=== PATIENT | female | born 1960 | race Caucasian/White ===

== ENCOUNTER 2020-06-15 15:14 | Emergency (ER) | payer BC, SELFPAY ==
[2020-06-15 15:15] VITALS: BP 159/83; PULSE 61; RESP 17; TEMP 36.7; O2SAT 97
[2020-06-15] MEDS: ALPRAZolam (*CRX) 0.5 MG TABLET PO (16:08)
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
[2020-06-15 16:20] VITALS: RESP 16
== END 2020-06-15 16:20 | disposition home or self-care (01) ==
PROVIDERS: Emergency Provider Emergency Medicine
DX: F41.0 Panic disorder [episodic paroxysmal anxiety] (principal)
CPT/HCPCS: 99283; A9270

== ENCOUNTER 2023-05-29 05:00 | Emergency (ER) | payer BC, SELFPAY ==
--- NOTE | ~2023-05-29 | XR_ITS ---
Portable chest x-ray Comparison: None Clinical History: Shortness of breath Findings: Probable minimal bibasilar pulmonary edema. Cardiomediastinal silhouette is prominent. Kev juanito and soft tissues are unremarkable. Impression: Suspected minimal bibasilar pulmonary edema. Reviewed, dictated and finalized at [facility]. Impression: Suspected minimal bibasilar pulmonary edema.
[2023-05-29 05:06] VITALS: BP 176/78; PULSE 65; RESP 20; TEMP 35.9; O2SAT 97
--- NOTE | 2023-05-29 05:19 | ED.ANXIETY ---
HPI - Anxiety General Chief Complaint: Anxiety Stated Complaint: Chest Pain/SOB Source: patient Mode of arrival: ambulatory Limitations: no limitations History of Present Illness HPI narrative: 63-year-old female with a history anxiety / depression, panic attacks, COPD on home oxygen presents to our ER with -- chest pain off and on for the past 1 month. She has been seen at 2 other hospitals for chest pain and has had negative cardiac enzymes. She has had a stress test a long time ago. He complains of left-sided pain. -- Shortness of breath. She has a history of and has chronic cough and shortness of breath and is on supplemental oxygen 3 liters/minute continuously. -- Anxiety mediated she was on Xanax in the past which was discontinued after she recently was diagnosed with -- low back pain for which she was placed on hydrocodone. -- diaphoresis complaint: anxiety and shortness of breath Onset (ago): month(s) ( Her symptoms have been present for 1 month.) Symptoms: dyspnea Severity: moderate Quality: constant Place: home History of similar episodes: Yes Provoking factors: emotional stress Relieving factors: nothing Exacerbating factors: nothing Associated symptoms: denies other symptoms, shortness of breath and diaphoresis Related Data Allergies Allergy/AdvReac Type Severity Reaction Status Date / Time Sulfa (Sulfonamide Allergy Other Verified 05/29/23 05:16 Antibiotics) Review of Systems Review of Systems: All systems reviewed & are unremarkable except as noted in HPI and below Constitutional: Constitutional: Reports as per HPI and Reports no additional constitutional complaints Eyes: Eyes: Reports as per HPI and Reports no additional eye complaints ENT: Reports system reviewed and no additional complaints, except as documented Cardiovascular: Cardiovascular: Reports as per HPI and Reports chest pain Respiratory: Respiratory: Reports as per HPI, Reports cough and Reports dyspnea Gastrointestinal: Gastrointestinal: Reports as per HPI Genitourinary: Genitourinary: Reports no additional female genitourinary complaints Musculoskeletal: Musculoskeletal: Reports no additional musculoskeletal complaints and Reports back pain Integumentary/Breasts: Skin/Breast: Reports system reviewed and no additional complaints, except as docu and Reports as per HPI Neurologic: Reports system reviewed and no additional complaints, except as documented and Reports as per HPI Psychiatric: Psychiatric: Reports no additional psychiatric complaints, Reports anxiety and Reports depression Endocrine: Endocrine: Reports no additional endocrine complaints and Reports as per HPI Hematologic/Lymphatic: Hematologic/Lymphatic: Reports no additional hematologic/lymphatic complaints and Reports as per HPI Allergic/Immunologic: Allergic/Immunologic: Reports no additional allergic/immunologic complaints and Reports as per HPI [facility] Past Medical History Medical History (Updated 05/29/23 @ 06:56 by Supa Polo MD) Anxiety Chronic low back pain COPD (chronic obstructive pulmonary disease) Depression Panic attacks Social History Social History (Updated 05/29/23 @ 05:35 by Supa Polo MD) Social History: smoker Smoking packs per day: 0.5 Smoking cigarettes per day: 10.0 Years smoked: 50 Smoking pack-years: 25.00 Smoking status: Current every day smoker Tobacco type: cigarettes Exam Const: General: ill appearing Nutritional Appearance: well nourished and obese Orientation/consciousness: patient oriented x3 Limitations: no limitations HENMT: Head: normal to inspection Ears: external ears normal Face/Nose/Sinus: Normal external nose present Face and sinus: normal facial exam Mouth: Yes Normal oral and palatal mucosa present Throat: posterior oropharynx normal Eyes: Conjunctivae: conjunctivae normal Pupils: Equal, round and reactive pupils present EOM: EOMs intact bilaterally Direct Ophthalmos
--- NOTE | 2023-05-29 05:30 | ECG_ITS ---
Measurements Intervals [place] Rate: 62 P: 76 MS: 121 QRS: 79 QRSD: 91 T: 64 QT: 412 QTc: 420 Interpretive Statements SINUS RHYTHM BORDERLINE R WAVE PROGRESSION, ANTERIOR LEADS INFERIOR INFARCT, AGE INDETERMINATE BASELINE ARTIFACT- I, II, III, AVR, AVL, AVF, V3-V6 ABNORMAL ECG NO PREVIOUS ECG AVAILABLE FOR COMPARISON Electronically Signed On 05-29-2023 8:35:43 CDT by Brian Santiago D.O.
[2023-05-29] MEDS: ASPIRIN 81 MG CHEWABLE TABLET 324 MG PO (05:39)
[2023-05-29] MEDS: ALPRAZolam (*CRX) 0.5 MG TABLET PO (05:41)
[2023-05-29 05:50] LABS: Basophils Absolute Auto 0.05 K/mm3 (0.00-0.10); Basophils Percent Auto 0.3 % (0.0-1.0); Eosinophils Absolute Auto 0.05 K/mm3 (0.02-0.50); Eosinophils Percent Auto 0.3 % (1.0-6.0); Hematocrit 41.2 % (35.0-49.0); Hemoglobin 12.9 g/dL (12.0-15.0); Immature Granulocyte Absolute 0.13 K/mm3 (0.00-0.00); Immature Granulocyte Percent A 0.7 % (0.0-0.0); Lymphocytes Absolute Auto 1.01 K/mm3 (1.10-4.50); Lymphocytes Percent Auto 5.1 % (18.0-42.0); Mean Corpuscular HGB Conc 31.3 g/dL (32.0-36.0); Mean Corpuscular Hemoglobin 32.5 pg (27.0-31.0); Mean Corpuscular Volume 103.8 fL (78.0-102.0); Mean Platelet Volume 10.1 fl (9.2-11.8); Monocytes Absolute Auto 1.04 K/mm3 (0.10-0.90); Monocytes Percent Auto 5.3 % (2.0-11.0); Neutrophils Absolute Auto 17.4 K/mm3 (1.7-7.2); Neutrophils Percent Auto 88.3 % (50.0-70.0); Platelet Count Result 337 K/mm3 (150-420); Red Blood Count 3.97 M/mm3 (4.20-5.40); Red Cell Distribution Width 13.1 % (11.6-14.4); White Blood Count 19.7 K/mm3 (4.8-10.8)
[2023-05-29 05:58] LABS: Prothrombin Time 10.7 Seconds (9.50-12.10)
[2023-05-29 06:04] LABS: Lactic Acid Reflex 0.8 mmol/L (0.4-2.0)
[2023-05-29 06:07] LABS: Alanine Aminotransferase 22 U/L (14-59); Albumin Level 2.8 g/dL (3.4-5.0); Alkaline Phosphatase 86 U/L (46-116); Anion Gap 4 mmol/L (8-16); Aspartate Amino Transferase 21 U/L (15-37); Bilirubin,Total 0.3 mg/dL (0.00-1.00); Blood Urea Nitrogen 24 mg/dL (7-18); Calcium 9.5 mg/dL (8.5-10.1); Carbon Dioxide 43 mmol/L (21-32); Chloride 95 mmol/L (98-108); Estimated CRCL calculation 78 ml/min; Estimated Glomerular Filt Rate > 60; Glucose 166 mg/dL (70-99); Lipase 27 U/L (16-77); NT Pro B Type Natriuretic Pept 1662 pg/mL (0-125); Osmolality Calculated 302 mOsm/kg (285-295); Potassium 3.6 mmol/L (3.5-5.1); Sodium 142 mmol/L (136-145); Total Protein 6.9 g/dL (6.4-8.2); Troponin I 20.8 ng/L (0.00-60.4)
[2023-05-29 06:23] LABS: Influenza A QL RT-PCR Negative (Negative); Influenza B QL RT-PCR Negative (Negative); SARS-CoV-2 RNA PCR Negative (Negative)
[2023-05-29 06:38] LABS: RSV RNA, RT-PCR Negative (Negative)
[2023-05-29 07:01] LABS: Appearance Urine Clear (Clear); Bilirubin Urine Negative (Negative); Blood Urine Negative (Negative); Color Urine Light Yellow (Yellow); Glucose Urine UA Negative (Negative); Ketones Urine Negative (Negative); Leukocyte Esterase Ur Negative LEU/UL (Negative); Nitrate Urine Negative (Negative); Protein Urine 1+ (Negative); Urobilinogen Urine 0.2 mg/dL (0.2-1.0); pH Urine 6.5 (5.0-8.0)
[2023-05-29 07:13] LABS: Add Urine Microscopic? YES; Bacteria Urine Trace /hpf; Budding Yeast Urine Present /hpf; RBC Urine 0-2 /hpf (0-2); Squamous Epithelial Cell Urine Moderate /hpf (Few); WBC Urine 0-3 /hpf (0-3)
--- NOTE | 2023-05-29 07:16 | PC.NURSE ---
ERP aware of cxr and high bnp, no new orders, still up for discharge.
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
== END 2023-05-29 07:55 | disposition home or self-care (01) ==
PROVIDERS: Emergency Provider Internal Medicine Critical Care Medicine; PCP Internal Medicine
DX: J44.9 Chronic obstructive pulmonary disease, unspecified (principal); I50.9 Heart failure, unspecified; F41.0 Panic disorder [episodic paroxysmal anxiety]; R07.9 Chest pain, unspecified; F17.210 Nicotine dependence, cigarettes, uncomplicated; Z99.81 Dependence on supplemental oxygen; Z79.899 Other long term (current) drug therapy; Z20.822 Contact with and (suspected) exposure to COVID-19
CPT/HCPCS: 36415; 71045; 80053; 81001; 83605; 83690; 83880; 84484; 85025; 85610; 87637; 93005; 99284; A9270

== ENCOUNTER 2024-12-31 18:14 | Emergency (ER) | payer BC, SELFPAY ==
[2024-12-31] VITALS (40 sets, daily range): BP systolic 117–179; BP diastolic 57–111; PULSE 73–89; RESP 14–30; TEMP 35.9–36.4; O2SAT 91–100
--- NOTE | ~2024-12-31 | XR_ITS ---
XR chest 1V portable Ordering provider: Johnny Sagastume MD History: 64 years Female with . altered mental status . Comparison: None. FINDINGS: MEDIASTINUM: The cardiac silhouette is slightly enlarged. Congestive luis f. LUNGS: No effusions or pneumothorax. Bilateral interstitial thickening suggestive of pulmonary edema. Superimposed pneumonia is not exclud ed. Opacification in the left lower lobe is seen suggestive of pneumonia. OTHER: No free air under the diaphragm. IMPRESSION: Cardiomegaly with cardiac decompensation and pulmonary edema. Bilateral pneumonitis with left lower lobe pneumonia is highly suggestive. Reviewed, dictated and finalized at location A.
--- OUTSIDE RECORDS SUMMARY | 2024-12-31 18:16 | XMS_ITS | Clinical Summary ---
Author Organization [facility] Address [address] [address] Phone Care Team Providers Care Communication Specialist Name Role Phone Unavailable Primary Care Provider Unavailabl e Allergies Active Allergy Reactions Criticality Noted Date Comments Sitagliptin Diarrhea 06/12/2018 Metformin Diarrhea 03/31/2017 Sulfa Antibiotics Unknown Medications Aspirin 81 MG Tablet Take 81 mg by mouth every morning. Active Blood Glucose Monitoring Suppl Device Test four times daily 1 Each 05/15/20 20 Active Lancets Misc Test four times daily 400 Lancet 3 05/15/20 20 Active Glucose Blood Strip Test four times daily 400 Strip 3 08/30/20 21 Active Narcan 4 MG/0.1ML Liquid 09/08/20 21 Active nitroGLYCERIN (NITROSTAT) 0.4 MG SL Tablet 1 Tablet by Sublingual route every 5 minutes as needed for Chest pain. 50 Tablet 03/27/20 22 Active naproxen (NAPROSYN) 500 MG Tablet Take 1 Tablet by mouth 2 times daily (with meals). 14 Tablet 08/02/20 22 Active naproxen (NAPROSYN) 500 MG Tablet Take 1 Tablet by mouth 2 times daily as needed for Mild or more severe pain. 20 Tablet 11/30/19 23 Active Glucose Blood (OneTouch Verio) Strip 4 times a day 120 Each 3 01/22/20 23 Active atorvastatin (LIPITOR) 80 MG Tablet Take 1 tablet by mouth once daily 90 Tablet 3 05/09/20 23 Active Insulin Pen Needle (BD Pen Needle Rose Marie U/F) 32G X 4 MM MiscIndications :Diabetes mellitus due to underlying condition with stage 1 chronic kidney disease, unspecified whether oil heaterman insulin use (HCC) 1 Pen Needle by Subcutaneous route 4 times daily. 400 Each 3 06/09/20 23 Active albuterol 108 (90 Base) MCG/ACT Aerosol Solution take 2 Puffs by inhalation every 4 hours as needed for Wheezing. 8.5 g 6 07/22/20 23 Active NovoLIN N FlexPen 100 UNIT/ML Suspension Pen-injector INJECT 24 UNITS IN THE MORNING AND 20 UNITS IN THE EVENING 45 mL 08/07/20 23 Active Insulin Pen Needle (Pen [place]) 29G X 12MM Misc 4 times a day E11.9 400 Each 3 08/08/20 23 Active gabapentin (NEURONTIN) 300 MG Capsule TAKE 1 CAPSULE BY MOUTH THREE TIMES DAILY 270 Capsule 11/03/19 24 Active tiZANidine (ZANAFLEX) 2 MG Tablet Take 1 Tablet by mouth 3 times daily. 90 Tablet 11/10/19 24 Active insulin aspart (NovoLOG FlexPen ReliOn) 100 UNIT/ML Solution Pen-injector INJECT 15 UNITS SUBCUTANEOUSLY, 10 UNITS AT LUNCH, AND 8 UNITS AT DINNER. ISF OF 1:20. IF >140 MG/DL. UP TO 50 UNITS A DAY 45 mL 06/24/20 24 Active NovoLIN N FlexPen 100 UNIT/ML Suspension Pen-injector INJECT 24 UNITS SUBCUTANEOUSLY IN THE MORNING AND 20 IN THE EVENING 30 mL 08/23/20 24 Active citalopram (CeleXA) 40 MG TabletIndicatio ns:Anxiety Take 1 tablet by mouth once daily 90 Tablet 09/01/20 24 Active carvedilol (COREG) 6.25 MG Tablet Take 1 tablet by mouth twice daily 60 Tablet 09/30/19 25 Active Active Problems Problem Noted Date Diagnosed Date COPD exacerbation 11/23/2021 Pneumonia 11/22/2021 Diarrhea 06/20/2020 Class 3 severe obesity due t o excess calories with serious comorbidity and body mass index (BMI) of 40.0 to 44.9 in adult 2019 Pain in both lower extremities 03/16/2018 Pain in left tibia 03/06/2018 Screening for colon cancer 11/28/2017 Screening for breast cancer 11/28/2017 Claudication of both lower extremities 6 Tobacco abuse 07/30/2016 CAD (coronary artery disease) Overview (09/17/2015): [place] 2001 DM (diabetes mellitus) HTN (hypertension) Depression IBS (irritable bowel syndrome) Overview (09/17/2015): DIARRHEA Hyperlipidemia Encounters Date Type Department Care Team Description 12/23[facility] [place] [address] [place] [id number] Travis Lr MD 11/30/2024 [facility] [place] [address] [place] [address] Travis Lr MD Medication Refill 10/31/2024 [facility] [place] [address] [place] [address] Travis Lr MD Medication Refill from Last 3 Months Immunizations Immunization Administration Dates Next Due Covid-19, Mrna, Lnp-s, PF, 1 00 mcg/0.5 mL Dose (Moderna) 07/18/2021,06/18/2021 Influenza Vaccine, Quadrivalent, PF 06/12/2018 Pneumococcal Vaccine Adult - 23 Valent 1 Pneumococcal Vaccine, Unspecified Formulation Tetanus Toxoid, Unspecified Formulation 09/22/19 11 Family History Medical History Relation Name Comments Congestive Heart Failure Father Rafa Valdez Coronary Artery Disease Father Rafa Valdez Heart Attack Father Rafa Valdez Heart Surgery Father Rafa Valdez Diabetes Half-Brother 1 No Known Problems Half-Brother 2 No Known Problems Half-Sister Rheumatoid Arthritis Maternal Grandmother Jane Valdez Congestive Heart Failure Mother Roselia Mauro Diabetes Mother Roselia Mauro Endometriosis Sister Elizabeth and myself ADD / ADHD Son Relation Name Status Comments Father Rafa Valdez Half-Brother 1 Alive Half-Brother 2 Alive Half-Sister Alive Maternal Grandmother Jane Valdez Mother Roselia Mauro Alive Sister Elizabeth and myself Son Alive Social History Tobacco Use Types Packs/Day Years Used Date Smoking Tobacco: Former Cigarettes 0 03/16/2017 - 04/29/2017 Smokeless Tobacco: Never Tobacco Cessation:Counseling Given: Yes Alcohol Use Standard Drinks/Week Comments No 0 (1 standard drink = 0.6 oz pur e alcohol) [facility] Utilities Answer Date Recorded In the past 12 months has th e electric, gas, oil, or water company threatened to shut off services in your home? No 11/08/2023 Social Connection and Isolation Panel [NHANES] A nswer Date Recorded In a typical week, how many times do you talk on the phone with family, friends, or neighbors? Twice a week 11/08/2023 How often do you get togethe r with friends or relatives? Once a week 11/08/2023 How often do you attend spiritism or presybeterian serv ices? Patient declined 11/08/2023 Do you belong to any clubs o r organizations such as spiritism groups, unions, fraternal or athletic groups, or school groups? No 11/08/2023 How often do you attend meet ings of the clubs or organizations you belong to? Patient declined 11/08/2023 Are you , , di vorced, , never , or living with a partner? 11/08/2023 AUDIT-C Answer Date Recorded Q1: How often do you have a drink containing alcohol? Never 11/08/2023 Q2: How many drinks containi ng alcohol do you have on a typical day when you are drinking? Patient does not drink Q3: How often do you have si x or more drinks on one occasion? Never 11/08/2023 Overall Financial Resource Strain (CARDIA) Answe r Date Recorded How hard is it for you to pa y for the very basics like food, housing, medical care, and heating? Somewhat hard 11/08/2023 PHQ-2 Answer Date Recorded Total Score - Questions 1-9 0 06/24 [facility] Questionnaire Answer Date Recorded Do you feel stress - tense, restless, nervous, or anxious, or unable to sleep at night because your mind is troubled all the time - these days? To some extent 11/08/2023 Exercise Vital Sign Answer Date Recorde d On average, how many days pe r week do you engage in moderate to strenuous exercise (like a brisk walk)? 2 days 11/08/2023 On average, how many minutes do you engage in exercise at this level? 20 min 11/08/2023 Hunger Vital Sign Answer Date Recorded Within the past 12 months, y ou worried that your food would run out before you got the money to buy more. Never true 11/08/19 24 Within the past 12 months, t he food you bought just didn't last and you didn't have money to get more. Never true 11/08/2023 PRAPARE - Transportation Answer Date Re corded In the past 12 months, has l ack of transportation kept you from medical appointments or from getting medications? No 10/23 In the past 12 months, has l ack of transportation kept you from meetings, work, or from getting things needed for daily living? No 11/08/2023 Housing Stability Vital Sign Answer Jameel e Recorded In the last 12 months, was t here a time when you were not able to pay the mortgage or rent on time? No 11/08/2023 In the last 12 months, how many places have you lived? 1 11/08/2023 In the last 12 months, was t here a time when you did not have a steady place to sleep or slept in a penitentiary (including now)? No 11/08/2023 Education Answer Date Recorded What is the highest level of school you have completed or the highest degree you have received? Some college, no degree 10/23/2022 Sexually Active Control Partners Comments Not Currently Abstinence Male Comments No Sex and Gender Information Value Date Recorded Sex Assigned at Not on file Legal Sex Female 11:03 PM CDT Gender Identity Not on file Sexual Orientation Not on file Last Filed Vital Signs Vital Sign Reading Time Taken Comments Blood Pressure 126/80 11/10/2023 2:30 PM [facility] Pulse 62 11/10/2023 2:30 PM [facility] Temperature 36.1 C (97 F) 11/10/2023 2:30 PM [facility] Respiratory Rate 16 07/22/2023 10:24 AM CDT Oxygen Saturation 96% 11/10/2023 2:30 PM [facility] Inhaled Oxygen Concentration - - Weight 108.9 kg (240 lb) 11/10/2023 2:30 PM [facility] Height 157.5 cm (5' 2 ) 11/10/2023 2:30 PM [facility] Body Mass Index 43.9 11/10/2023 2:30 PM [facility] Plan of Treatment Health Maintenance Due Date Last Done Comments Hepatitis C Virus (HCV) Screening 1961 TdaP Immunization 1961 Pap Smear 1982 Cervical Cancer Screening (CCS) 1991 HPV/Cotest 1991 Colonoscopy 2006 Colorectal Cancer Screening 2006 Cologuard 2011 Immunochemical Fecal Occult Blood 2011 Zoster Immunization (1 of 2) 2011 Mammogram 09/19/2017 09/19/2016 Respiratory Syncytial Virus (RSV) Immunization (Adult) (1 - Risk 60-74 years 1-dose series) 2021 Pneumococcal Immunization (50+ years) (2 of 2 - PCV) 03/13/2022 03/13/2021, 09/22/2011 Diabetes: Eye Exam 05/03/2022 05/03/2021, 01/07/2018 Diabetes: Hemoglobin A1c 07/24/2023 023, 05/13/2022, 11/23/2021, Additional history exists Diabetes: Foot Exam 10/24/2023 10/24/2022 SARS-COV-2 Immunization ( season) 2024 07/18/2021, 06/18/2021 Diabetes: Nephropathy Screening 11/10/2024 11/10/2023, 07/31/2022, 11/22/2021, Additional history exists Influenza Immunization (Season Ended) 2025 06/12/2018 Pneumococcal Immunization Combined Discontinued 03/13/2021, 09/22/2011 Lung Cancer Screening Discontinued 11/22/2021 Hepatitis B Immunization Aged Out No longer eligible based on patient's age to complete this topic Meningococcal Immunization (ACWY) Aged Out No longer eligible based on patient's age to complete this topic Rotavirus Immunization Aged Out No lo nger eligible based on patient's age to complete this topic Goals Goal Patient Goal Type Associated Problems Recent Progress Patient-Stated? Author Transportation Transportation On track(07/31 1:09 PM [facility]) No Carole Abel LSW Note: Goal: Patient to obtain access to all needed medical services Anticipated Completion Date: In the next 3 months Patient's Preferred Goal: Standard Challenges/Barriers: Lack of knowledge of local resources Readiness to Change: Thinking about making a change Notify Care Team if: You have any issues completing goals outlined below Short Term Goals: ANA URRUTIA to mail out information about [facility] transportation services \ Phone call to schedule in [facility] trips within 24 hours out of [facility] call within 72 hours. Medical Devices Implanted Type Area Buckle Wire Inserter Device Identifier Shelf Expiration Date Model / Serial / Lot Angioseal Vip 6fr - [id number] Implanted:Qty: 1 on 09/11/2016 by Eriberto Hoffman MD at [facility] IMPLANT Right: Groin ST SANDRA / ATRIAL FIB 04/21/2017 [id number] / / [id number] Cast Covered Stent [id number] Implanted:Qty: 1 on 09/11/2016 by Eriberto Hoffman MD at [facility] Aorta Brainscape 05/14/2019 [id number] / [id number] / NA Procedures Procedure Name Priority Date/Time Associated Diagnosis Comments CMP (COMPREHENSIVE METABOLIC PANEL) Routine 11/10/2023 2:58 PM [facility] Type 2 diabetes mellitus with other specified complication, with long-term current use of insulin (HCC) Pure hypercholesterolemia Primary hypertension POCT GLYCOSYLATED HEMOGLOBIN Routine 01/21/2023 2:14 PM CDT Type 2 diabetes mellitus with other specified complication, with long-term current use of insulin (HCC) CT CHEST W/O CONTRAST STAT 11/22/2021 1:34 PM [facility] HM DILATED EYE EXAM 05/03/2021 1 2:00 AM CDT MIKEY SCREENING BILATERAL DIGITAL W CAD Routine 09/19/2016 10:21 AM [facility] Type 2 diabetes mellitus without complication, without long-term current use of insulin (<HCC>) Coronary artery disease involving [place] heart with angina pectoris, unspecified vessel or lesion type (<HCC>) from Last 3 Months or Most Recently Relevant to Health Maintenance Results * (ABNORMAL) CMP (COMPREHENSIVE METABOLIC PANEL) (11/10/2023 2:58 PM [facility]) SODIUM 143 136 - 145 mmol/L 11/10/2023 4:28 PM [facility] POTASSIUM 4.8 3.5 - 5.1 mmol/L 11/10/2023 4:28 PM [facility] CHLORIDE 100 98 - 107 mmol/L 11/10/2023 4:28 PM [facility] CO2, VENOUS 35(H) 22 - 30 mmol/L 11/10/2023 4:28 PM [facility] ANION GAP 12.8 <18.0 mmol/L 11/10/2023 4:28 PM [facility] GLUCOSE 67(L) 70 - 99 mg/dL 11/10/2023 4:28 PM [facility] BUN 20 10 - 20 mg/dL 11/10/2023 4:28 PM [facility] CREATININE, BLOOD 0.80 0.60 - 1.00 mg/dL 11/10/2023 4:28 PM [facility] BUN/CREATININE RATIO 25(H) 12 - 20 ratio 11/10/2023 4:28 PM [facility] TOTAL PROTEIN 7.0 6.3 - 8.2 g/dL 11/10/2023 4:28 PM [facility] ALBUMIN 3.8 3.5 - 5.0 g/dL 11/10/2023 4:28 PM [facility] A/G RATIO 1.2 1.0 - 2.2 11/10/2023 4:28 PM [facility] CALCIUM 9.4 8.7 - 10.5 mg/dL 11/10/2023 4:28 PM [facility] T BILI 0.2 0.2 - 1.2 mg/dL 11/10/2023 4:28 PM [facility] SGOT (AST) 12 5 - 34 U/L 11/10/2023 4:28 PM [facility] SGPT (ALT) 9 0 - 55 U/L 11/10/2023 4:28 PM [facility] ALKALINE PHOSPHATASE 73 40 - 150 U/L 11/10/2023 4:28 PM [facility] IS THE PATIENT REQUIRED TO BE FASTING? No 11/10/2023 4:28 PM [facility] GFR, ESTIMATED >60 >=60 11/10/2023 4:28 PM [facility] Comment: Creatinine Clearance is the preferred criteria for selecting drug dose adjustments in renally impaired patients. The GFR is provided as additional pertinent clinical information. GFR is reported in mL/min/1.73 sq m. Calculation based on the Chronic Kidney Disease Epidemiology Collaboration (CKD- EPI) equation refit without adjustment for race. GFR, EST. >60 >=60 024 4:28 PM [facility] GFR, EST. NONAFRICAN >60 >=60 11/10/2023 4:28 PM [facility] Blood Venipuncture / Unknown 11/10/2023 2:58 PM [facility] 11/10/2023 2:58 PM [facility] us Travis Lr MD CHEMISTRY ORDERABLES Final Re sult [facility] [address] [place] [address] * (ABNORMAL) POCT GLYCOSYLATED HEMOGLOBIN (01/21/2023 2:14 PM CDT) HGB-A1C 6.8(A) 4 - 6 % Blood 01/21/2023 2:14 PM CDT us Cassandra Holt MD POINT OF CARE TESTING (MANUAL) F inal Result * CT CHEST W/O CONTRAST (11/22/2021 1:34 PM [facility]) Anatomical Region Laterality Modality Chest N/A Computed Tomogra phy 11/22/2021 1:50 PM [facility] Impressions 11/22/2021 1:53 PM [facility] IMPRESSION: 1. No acute findings are identified in the chest. 2. No pulmonary edema. 3. Diffuse bronchial wall thickening, likely sequelae of chronic bronchitis in a smoker. 4. Mild centrilobular and paraseptal emphysema in the upper lungs. 5. There is a 5 mm solid nodule in the left upper lobe. Follow-up is recommended with chest CT in 12 months. Other smaller nodules are either calcified or partially calcified, and likely correspond to benign granulomas. 6. There are stents in the left anterior descending and left circumflex coronary arteries. 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 7. Other findings as described above. Narrative 11/22/2021 1:53 PM [facility] EXAM DESCRIPTION: CT CHEST W/O CONTRAST REASON FOR STUDY: Shortness of breath since this morning. Intermittent chest pain. Smoker. TECHNIQUE: CT scan of the chest performed without intravenous contrast using helical scanning technique. Reconstructed coronal and sagittal MPR images reviewed. All images stored on PACS. Automated exposure control was used as a dose optimization technique for this examination. COMPARISON: No previous chest CT is available for comparison. FINDINGS: The sensitivity for detection of solid visceral lesions is diminished without the use of intravenous contrast. LUNGS: Mild paraseptal emphysema and centrilobular emphysema in the upper lungs. There is no focal consolidation. Minimal areas of peripheral subsegmental atelectasis/scarring in the lung bases. Scattered calcified granulomas. There is a small solid nodule in the periphery of the left upper lobe on axial image 37, measuring 5 mm. Other tiny lung nodules appear at least partially calcified, and no other noncalcified nodules are definitely seen. There is no interlobular septal thickening to suggest edema. The airways are patent and normal in caliber. There is diffuse bronchial wall thickening and mild patchy mucous plugging, likely representing sequelae of chronic bronchitis in a smoker. PLEURA: There is no pleural effusion or pneumothorax. MEDIASTINUM/BROOKLYNN: No lymphadenopathy or masses. HEART: The heart size is normal. There are calcified plaques in the coronary arteries, and stents are identified in the left anterior descending and left circumflex coronary arteries. 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 No pericardial thickening or effusion. VASCULATURE: The thoracic aorta is diffusely atherosclerotic, but normal in caliber. The pulmonary arteries have normal caliber. AXILLA: No adenopathy. CHEST WALL: No masses. No subcutaneous air. HARDWARE/LINES/TUBES: None. UPPER ABDOMEN: Limited views of the liver, spleen, pancreas, and kidneys are unremarkable. There is a low-attenuation nodule in the right adrenal gland that measures approximately 16 mm. This is indeterminate, but stability compared to CT of the abdomen and pelvis from 01/25/2019 is most suggestive of a benign adenoma. MUSCULOSKELETAL: Examination of bone windows demonstrates no suspicious lytic or blastic lesions. Diffuse idiopathic skeletal hyperostosis of the lower thoracic spine. OTHER: No other significant abnormality. THIS IS AN ELECTRONICALLY VERIFIED FINAL REPORT 11/22/2021 1:50 PM - Electronically signed by Per Seymour M.D. RL: HENRY Report ID: [id number] Reading Location: [place] [address] Procedure Note Per Seymour MD - 11/22/2021 EXAM DESCRIPTION: CT CHEST W/O CONTRAST REASON FOR STUDY: Shortness of breath since this morning. Intermittent chest pain. Smoker. TECHNIQUE: CT scan of the chest performed without intravenous contrast using helical scanning technique. Reconstructed coronal and sagittal MPR images reviewed. All images stored on PACS. Automated exposure control was used as a dose optimization technique for this examination. COMPARISON: No previous chest CT is available for comparison. FINDINGS: The sensitivity for detection of solid visceral lesions is diminished without the use of intravenous contrast. LUNGS: Mild paraseptal emphysema and centrilobular emphysema in the upper lungs. There is no focal consolidation. Minimal areas of peripheral subsegmental atelectasis/scarring in the lung bases. Scattered calcified granulomas. There is a small solid nodule in the periphery of the left upper lobe on axial image 37, measuring 5 mm. Other tiny lung nodules appear at least partially calcified, and no other noncalcified nodules are definitely seen. There is no interlobular septal thickening to suggest edema. The airways are patent and normal in caliber. There is diffuse bronchial wall thickening and mild patchy mucous plugging, likely representing sequelae of chronic bronchitis in a smoker. PLEURA: There is no pleural effusion or pneumothorax. MEDIASTINUM/BROOKLYNN: No lymphadenopathy or masses. HEART: The heart size is normal. There are calcified plaques in the coronary arteries, and stents are identified in the left anterior descending and left circumflex coronary arteries. 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 No pericardial thickening or effusion. VASCULATURE: The thoracic aorta is diffusely atherosclerotic, but normal in caliber. The pulmonary arteries have normal caliber. AXILLA: No adenopathy. CHEST WALL: No masses. No subcutaneous air. HARDWARE/LINES/TUBES: None. UPPER ABDOMEN: Limited views of the liver, spleen, pancreas, and kidneys are unremarkable. There is a low-attenuation nodule in the right adrenal gland that measures approximately 16 mm. This is indeterminate, but stability compared to CT of the abdomen and pelvis from 01/25/2019 is most suggestive of a benign adenoma. MUSCULOSKELETAL: Examination of bone windows demonstrates no suspicious lytic or blastic lesions. Diffuse idiopathic skeletal hyperostosis of the lower thoracic spine. OTHER: No other significant abnormality. THIS IS AN ELECTRONICALLY VERIFIED FINAL REPORT 11/22/2021 1:50 PM - Electronically signed by Per Seymour M.D. RL: HENRY Report ID: [id number] Reading Location: [place] [address] IMPRESSION: 1. No acute findings are identified in the chest. 2. No pulmonary edema. 3. Diffuse bronchial wall thickening, likely sequelae of chronic bronchitis in a smoker. 4. Mild centrilobular and paraseptal emphysema in the upper lungs. 5. There is a 5 mm solid nodule in the left upper lobe. Follow-up is recommended with chest CT in 12 months. Other smaller nodules are either calcified or partially calcified, and likely correspond to benign granulomas. 6. There are stents in the left anterior descending and left circumflex coronary arteries. 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 7. Other findings as described above. us Glenroy Maria MD IMG CT ORDERABLES Final Res ult * HM DILATED EYE EXAM (05/03/2021 12:00 AM CDT) 05/03/2021 us Not On File Provider PROCEDURE/MINOR SURGICAL OR DERABLES Final Result SCAN * MIKEY SCREENING BILATERAL DIGITAL W CAD (09/19/2016 10:21 AM [facility]) Anatomical Region Laterality Modality breast Bilateral Mammography 09/19/2016 9:54 AM [facility] Narrative 09/20/2016 7:21 AM [facility] - MIKEY SCREENING BILATERAL DIGITAL W CAD BILATERAL DIGITAL SCREENING MAMMOGRAM WITH CAD WITH MEDIOLATERAL OBLIQUE CRANIOCAUDAL: 09/19/2016 The study was acquired using digital technology and interpreted from soft copy. Current study was also evaluated with ICAD version 7.2. CLINICAL: Routine screening. Patient has no complaints. No personal history of cancer. No family history of breast cancer. COMPARISONS: Comparison is made to exam dated: 02/06/2011 [facility]. BREAST TISSUE:There are scattered fibroglandular densities in both breasts. FINDINGS: No significant masses, calcifications, or other findings are seen in either breast. There has been no significant interval change. IMPRESSION: BI-RAD 1 NEGATIVE There is no mammographic evidence of malignancy. A 1 year screening mammogram is recommended. The patient has been or will be contacted. The patient will be entered into a reminder system with a target due date of 1 year for her next screening exam. Electronically signed by: Andres hernández/laz:09/19/2016 14:59:04 Closing Manager: Elizabet CHINCHILLA(R)(M), [facility] letter sent: Normal Exam Reading location: [facility] BI-RADS: 1 Negative Procedure Note Andres Veronica MD - 09/20/2016 - MIKEY SCREENING BILATERAL DIGITAL W CAD BILATERAL DIGITAL SCREENING MAMMOGRAM WITH CAD WITH MEDIOLATERAL OBLIQUE CRANIOCAUDAL: 09/19/2016 The study was acquired using digital technology and interpreted from soft copy. Current study was also evaluated with ICAD version 7.2. CLINICAL: Routine screening. Patient has no complaints. No personal history of cancer. No family history of breast cancer. COMPARISONS: Comparison is made to exam dated: 02/06/2011 [facility]. BREAST TISSUE:There are scattered fibroglandular densities in both breasts. FINDINGS: No significant masses, calcifications, or other findings are seen in either breast. There has been no significant interval change. IMPRESSION: BI-RAD 1 NEGATIVE There is no mammographic evidence of malignancy. A 1 year screening mammogram is recommended. The patient has been or will be contacted. The patient will be entered into a reminder system with a target due date of 1 year for her next screening exam. Electronically signed by: Andres Veronica M.D. nh/penrad:09/19/2016 14:59:04 Closing Manager: Elizabet CHINCHILLA(Wyatt)(M), [facility] letter sent: Normal Exam Reading location: [facility] BI-RADS: 1 Negative us Travis Lr MD IMG MAMMO ORDERABLES Final Re sult from Last 3 Months or Most Recently Relevant to Health Maintenance Insurance [facility] Advance Directives Documents on File Type Date Recorded Patient Sap Basis Administrator Expl anation Power of Configuration Technician for Health Care 08/09/2021 4:16 PM POA-HC 08/09/21 Advance Care Planning Discussion 08/09/2021 4:15 PM ACP Discussion recor d 08/09/21 * Full Code (Latest Code Status on File) Date Activated Date Inactivated Comments 11/22/2021 2:22 PM 11/23/2021 5:14 PM CPR-Full Treat ment: FULL ARREST: Attempt Resuscitation/CPR wit intubation and mechanical ventilation. PRE-ARREST: Use entire range of life support measures to stabilize the patient.
--- OUTSIDE RECORDS SUMMARY | 2024-12-31 18:16 | XMS_ITS | Encounter Summary ---
Author Organization [facility] Address [address] [facility] [place] [address] Phone Care Team Providers Care Wireless Telegrapher Name Role Phone Travis Lr MD Primary Care Provider [phone] Cassandra Holt MD Unavailable Carole Abel FOREST ECONOMICS PROFESSOR Unavailable Unavailab le Reason for Visit * Reason Onset Date Comments Medication Refill 06/15/2023 Encounter Details Date Type Department Care Team (Late st Contact Info) Description 06/15/2023 Refill [facility] [address] [place] [address] Travis Lr MD #[address] [address] Medication Refill Social History Tobacco Use Types Packs/Day Years Used Date Smoking Tobacco: Every Day Cigarettes 1.5 48.5 Started: 06/20/1976 Smokeless Tobacco: Never Alcohol Use Standard Drinks/Week Comments No 0 (1 standard drink = 0.6 oz pur e alcohol) PHQ-2 Answer Date Recorded Total Score - Questions 1-9 0 04/23 Education Answer Date Recorded What is the highest level of school you have completed or the highest degree you have received? Some college, no degree 10/23/2022 Sexually Active Control Partners Comments Not Currently Male Comments No Sex and Gender Information Value Date Recorded Sex Assigned at Not on file Legal Sex Female 11:03 PM CDT Gender Identity Not on file Sexual Orientation Not on file COVID-19 Exposure Response Date Recorded In the last 10 days, have yo u been in contact with someone who was confirmed or suspected to have Coronavirus/COVID-19? No / Unsure 06/06/2023 1:23 PM CDT documented as of this encounter Miscellaneous Notes * Telephone Encounter - Amara Kilgore RN - 06/16/2023 9:40 AM CDT Images from the original note were not included. Sertraline HCl Dispensed Days Supply Quantity Provider Pharmacy SERTRALINE HCL 50 MG TABS 05/01/2023 30 30 Tablet [id number] ... Pt states she has NOT picked this up or taken any. She does NOT want to be on Zoloft. She said thiswas done when she was in the hospital 04/22/23. Pt would like to remain on the Citalopram. * Telephone Encounter - Shena Page RN - 06/15/2023 11:27 AM CDT SITUATION: Medication Management BACKGROUND: Patient calling to request refill for citalopram. Pharmacy verified. States was told by pharmacy that patient has been switched to zoloft. Patient is tearful and states prefers to stay on citalopram as this medication has been working well for patient for years. States the provider that suggested zoloft is not patient's PCP and does not know patient or patient's history. ASSESSMENT: N/A RECOMMENDATION: Patient requesting to continue on citalopram and is requesting refill when possible. documented in this encounter Plan of Treatment Not on file documented as of this encounter Visit Diagnoses Diagnosis Anxiety Anxiety state, unspecified documented in this encounter Additional Health Concerns Assessment Noted Time PHQ-9 Depression Total Score: 0 05/20/20 4:57 PM CDT documented as of this encounter Care Teams Wireless Telegrapher Relationship Specialty Start Date End Date Travis Lr [facility] [address] [place] [address] PCP - General Family Medicine 08/08/15 09/30/24 Cassandra Holt MD #2 [facility] [address] [place] [address] Consulting Physician Endocrinology 04/10/22 11/09/24 Carole Abel LSW [place] Machine Container Washer 06/19/23 08/26/23 documented as of this encounter
--- OUTSIDE RECORDS SUMMARY | 2024-12-31 18:16 | XMS_ITS | Encounter Summary ---
Author Organization [facility] Address [address] [place] [address] Phone Care Team Providers Care Glassworker Name Role Phone Travis Lr MD Primary Care Provider [phone] Cassandra Holt MD Unavailable Reason for Visit * Reason Comments Medication Refill Encounter Details Date Type Department Care Team (Late st Contact Info) Description 12/05/2023 [facility]ill [facility] [address] [place] [address] Travis Lr MD #[address] [address] Medication Refill Social History Tobacco Use Types Packs/Day Years Used Date Smoking Tobacco: Former Cigarettes 0 03/16/2017 - 04/29/2017 Smokeless Tobacco: Never Alcohol Use Standard Drinks/Week Comments No 0 (1 standard drink = 0.6 oz pur e alcohol) [facility] Utilities Answer Date Recorded In the past 12 months has [employer] electric, gas, oil, or water company threatened [...] week 11/08/2023 How often do you attend moravian or cheondoism serv ices? Patient declined 11/08/2023 Do you belong to any clubs o r organizations such as moravian groups, unions, fraternal or athletic groups, or [...] Total Score - Questions 1-9 0 06/24 [facility] - Occupational Stress Questionnaire Answer Date Recorded [...] place to sleep or slept in a prison (including now)? No 11/08/2023 Education Answer Date [...] on file Sexual Orientation Not on file documented as of this encounter Miscellaneous Notes * Telephone Encounter - Amara Kilgore RN - 12/05/2023 12:11 PM CDT Medication failed the protocol, provider to review and approve the medication order if appropriate. Requested Prescriptions Pending Prescriptions Disp Refills citalopram (CeleXA) 40 MG Tablet [Pharmacy Med Name: Citalopram Hydrobromide 40 MG Oral Tablet] 90 Tablet 1 Sig: Take 1 tablet by mouth once daily Citalopram (Celexa) (6 Month Refill Only) Protocol Failed - 12/05/2023 6:53 AM Failed - Has an encounter in the past 6 months with a depression, anxiety, adjustment disorder, OCD, or PTSD visit diagnosis Passed - Citalopram dose is less than or equal to 40mg / day Passed - Visit with relevant provider in past 6 months or upcoming 90 days Recent Visits Date Type Provider Dept 11/10/23 Office Visit Travis Lr MD [facility] 07/22/23 Office Visit Travis Lr MD [facility] Showing recent visits within past 182 days and meeting all other requirements Future Appointments Date Type Provider Dept 02/09/24 Appointment Travis Lr MD [facility] Showing future appointments within next 90 days and meeting all other requirements Passed - Patient has established therapy with Citalopram for at least 6 months documented in this encounter Plan of Treatment Not on file documented as of this encounter Goals Goal Patient Goal Type Associated Problems Recent Progress Patient-Stated? Author Transportation Transportation On track(07/31 1:09 PM MANAGEMENT DEVELOPMENT SPECIALIST) Carole Herrera LSW Note: Goal: Patient to obtain access to all needed medical services Anticipated Completion Date: In the next 3 months Patient's Preferred Goal: Standard Challenges/Barriers: Lack of knowledge of local resources Readiness to Change: Thinking about making a change Notify Care Team if: You have any issues completing goals outlined below Short Term Goals: SW CM to mail out information about [facility] Transit transportation services \ Phone call to schedule in [facility] trips within 24 hours out of [facility] call within 72 hours. documented as of this encounter Visit Diagnoses Diagnosis Anxiety Anxiety state, unspecified documented in this encounter Additional Health Concerns Assessment Noted Time PHQ-9 Depression Total Score: 0 07/22/20 23 10:21 AM CDT documented as of this encounter Care Teams Glassworker Relationship Specialty Start Date End Date Travis Lr MD #2 [facility] [address] [place] [address] PCP - General Family Medicine 08/08/15 09/30/24 Cassandra Holt MD #2 [facility] [address] [place] [address] Consulting Physician Endocrinology 04/10/22 11/09/24 documented as of this encounter
--- OUTSIDE RECORDS SUMMARY | 2024-12-31 18:16 | XMS_ITS | Encounter Summary ---
Author Organization [facility] Address [address] [place] [address] Phone Care Team Providers Care Wood Filler Name Role Phone Travis Lr MD Primary Care Provider [phone] Cassandra Holt MD Unavailable Carole Abel PHP PROGRAMMER Unavailable Unavailab le Reason for Visit * Reason Comments Medication Refill Encounter Details Date Type Department Care Team (Late st Contact Info) Description 02/13/2023 Refill [facility] [address] [place] [address] Travis Lr MD #[address] [address] Medication Refill Social History Tobacco Use Types Packs/Day Years Used Date Smoking Tobacco: Every Day Cigarettes 1.5 48.5 Started: 06/20/1976 Smokeless Tobacco: Never Alcohol Use Standard Drinks/Week Comments No 0 (1 standard drink = 0.6 oz pur e alcohol) PHQ-2 Answer Date Recorded Total Score - Questions 1-9 0 10/2022 Education Answer Date Recorded What is the [...] suspected to have Coronavirus/COVID-19? No / Unsure 01/21/2023 1:15 PM CDT documented as of this encounter Miscellaneous Notes * Telephone Encounter - Amara Kilgore RN - 02/13/2023 3:50 PM CDT Medication failed the protocol, provider to review and approve the medication order if appropriate. Requested Prescriptions Pending Prescriptions Disp Refills citalopram (CeleXA) 40 MG Tablet [Pharmacy Med Name: Citalopram Hydrobromide 40 MG Oral Tablet] 90 Tablet 1 Sig: Take 1 tablet by mouth once daily Citalopram (Celexa) (6 Month Refill Only) Protocol Failed - 02/13/2023 11:43 AM Failed - Has an encounter in the past 6 months with a depression, anxiety, adjustment disorder, OCD, or PTSD visit diagnosis Passed - Citalopram dose is less than or equal to 40mg / day Passed - Visit with relevant provider in past 6 months or upcoming 90 days Recent Visits Date Type Provider Dept 01/21/23 Office Visit Travis Lr MD [facility] 10/24/22 Office Visit Travis Lr MD [facility] Showing recent visits within past 182 days and meeting all other requirements Future Appointments Date Type Provider Dept 04/22/23 Appointment Travis Lr MD [facility] Showing future appointments within next 90 days and meeting all other requirements Passed - Patient has established therapy with Citalopram for at least 6 months Refused Prescriptions Disp Refills gabapentin (NEURONTIN) 300 MG Capsule [Pharmacy Med Name: Gabapentin 300 MG Oral Capsule] 270 Capsule 0 Sig: TAKE 1 CAPSULE BY MOUTH THREE TIMES DAILY Not Delegated - Anticonvulsants Excluding Benzodiazepines Protocol Failed - 02/13/2023 11:43 AM Failed - This refill cannot be delegated Passed - Visit with relevant provider in past 12 months or upcoming 90 days Recent Visits Date Type Provider Dept 01/21/23 Office Visit Travis Lr MD [facility] 10/24/22 Office Visit Travis Lr MD [facility] 07/30/22 Office Visit Travis Lr MD [facility] 07/24/22 Office Visit Travis Lr MD [facility] 04/04/22 Office Visit Travis Lr MD [facility] 03/05/22 [facility] Show[facility] recent visits within past 365 days and meeting all other requirements Future Appointments Date Type Provider Dept 04/22/23 Appointment Travis Lr MD [facility] Showing future appointments within next 90 days and meeting all other requirements * Telephone Encounter - Amara Kilgore RN - 02/13/2023 3:49 PM CDT Signed Yesterday (02/12/2023): gabapentin (NEURONTIN) 300 MG Capsule Sig: Take 1 Capsule by mouth 3 times daily. Disp: 270 Capsule ? Refills: 0 Signed by: Travis Lr MD documented in this encounter Plan of Treatment Not on file documented as of this encounter Visit Diagnoses Diagnosis Anxiety Anxiety state, unspecified documented in this encounter Additional Health Concerns Assessment Noted Time PHQ-9 Depression Total Score: 0 10/24/19 2:00 PM MANAGER GYN documented as of this encounter Care Teams Wood Filler Relationship Specialty Start Date End Date Travis Lr MD #[address] [facility] [address] [place] [address] PCP - General Family Medicine 08/08/15 09/30/24 Cassandra Holt MD #[address] [facility] [facility] [address] [place] [address] Consulting Physician Endocrinology 04/10/22 11/09/24 Carole Abel LSW [place] Microfiche Duplicator 06/19/23 08/26/23 documented as of this encounter
--- OUTSIDE RECORDS SUMMARY | 2024-12-31 18:16 | XMS_ITS | Encounter Summary ---
Author Organization [facility] Address [address] [place] [address] Phone Care Team Providers Care Internet Marketing Director Name Role Phone Cassandra Holt MD Unavailable Reason for Visit * Reason Comments Medication Refill Encounter Details Date Type Department Care Team (Late st Contact Info) Description 10/31/2024 Refill [facility] #[address] [place] [address] Travis Lr MD #[address] [address] Medication Refill Social History Tobacco Use Types Packs/Day Years Used Date Smoking Tobacco: Former Cigarettes 0 03/16/2017 - 04/29/2017 Smokeless Tobacco: Never Alcohol Use Standard Drinks/Week Comments No 0 (1 standard drink = 0.6 oz pur e alcohol) [facility] Utilities Answer Date Recorded In the past 12 months has th [employer] electric, gas, oil, or water company threatened [...] week 11/08/2023 How often do you attend taoism or holiness serv ices? Patient declined 11/08/2023 Do you belong to any clubs o r organizations such as taoism groups, unions, fraternal or athletic groups, or [...] Total Score - Questions 1-9 0 06/24 [facility]at ional [facility] - Occupational Stress Questionnaire Answer Date [...] place to sleep or slept in a m[facility]p (including now)? No 11/08/2023 Education Answer Date [...] on file documented as of this encounter Plan of Treatment Not on file documented as of this encounter Goals Goal Patient Goal Type Associated Problems Recent Progress Patient-Stated? Author Transportation Transportation On track(07/31 1:09 PM DE IONIZER OPERATOR) No Carole Abel LSW Note: Goal: Patient to obtain access to all needed medical services Anticipated Completion Date: In the next 3 months Patient's Preferred Goal: Standard Challenges/Barriers: Lack of knowledge of local resources Readiness to Change: Thinking about making a change Notify Care Team if: You have any issues completing goals outlined below Short Term Goals: [facility] to mail out information about [facility] Transit transportation services \ Phone call to schedule in [facility] trips within 24 hours out of [facility] call within 72 hours. documented as of this encounter Visit Diagnoses Not on filedocumented in this encounter Additional Health Concerns Assessment Noted Time PHQ-9 Depression Total Score: 0 07/22/20 23 10:21 AM CDT documented as of this encounter Care Teams Internet Marketing Director Relationship Specialty Start Date End Date Cassandra Holt MD #[address] [address] Consulting Physician Endocrinology 04/10/22 11/09/24 documented as of this encounter
--- OUTSIDE RECORDS SUMMARY | 2024-12-31 18:16 | XMS_ITS | Clinical Summary ---
Author Organization [facility] Address [address] [place] [address] Care Team Providers Care Mold Engraver Name Role Phone Mare Castano MD Primary Care Provider [phone] Allergies Active Allergy Reactions Criticality Noted Date Comments Sulfa (Sulfonamide Antibiotics) Rash Medium 02/20 Medications HYDROcodone-bassam taminophen (NORCO) 10-325 mg per tabletIndicatio ns:Pain Take 1 tablet by mouth every 8 (eight) hours as needed for pain Active gabapentin (NEURONTIN) 300 mg capsule Take 1 capsule (300 mg total) by mouth 3 (three) times a day Active TiZANidine (ZANAFLEX) 2 mg capsuleIndicati ons:Muscle Spasm Take 1 capsule (2 mg total) by mouth 3 (three) times a day as needed for muscle spasms Active ALPRAZolam (XANAX) 0.5 mg tablet Take 1 tablet (0.5 mg total) by mouth 3 (three) times a day as needed for anxiety Active citalopram (CeleXA) 40 mg tablet Take 1 tablet (40 mg total) by mouth daily Active aspirin 81 mg enteric coated tablet Take 1 tablet (81 mg total) by mouth daily Active atorvastatin (LIPITOR) 80 mg tablet Take 1 tablet (80 mg total) by mouth daily Active carvediloL (COREG) 12.5 mg tablet Take 1 tablet (12.5 mg total) by mouth 2 (two) times a day with meals 60 tablet 04/24/2023 Active losartan (COZAAR) 25 mg tablet Take 1 tablet (25 mg total) by mouth daily 30 tablet 04/24/2023 Active Active Problems Problem Noted Date Diagnosed Date Hypertensive urgency 04/23/2023 Chest pain 04/23/2023 Shortness of breath 04/23/2023 Ear pain, bilateral 04/23/2023 Sinus pain 04/23/2023 Congestive heart failure (CHF) 04/23/2023 COPD (chronic obstructive pulmonary disease) 10/2022 Class 3 obesity 04/23/2023 Tobacco use disorder 04/23/2023 Chronic respiratory failure with hypoxia 023 CAD (coronary artery disease) 03/04/2022 Overview (03/04/2022): ME 2002 Depression 03/04/2022 DM (diabetes mellitus) 03/04/2022 HTN (hypertension) 03/04/2022 Hyperlipidemia 03/04/2022 IBS (irritable bowel syndrome) 03/04/2022 Overview (03/04/2022): DIARRHEA COPD exacerbation 11/23/2021 Pneumonia 11/22/2021 Medical History Medical History Date Comments Diabetes mellitus (HCC) Hypertension COPD (chronic obstructive pulmonary disease) (HC C) Social History Tobacco Use Types Packs/Day Years Used Date Smoking Tobacco: Every Day Cigarettes 0.3 45 Tobacco Cessation:Ready to Q uit: Not Asked Social Connection and Isolation Panel [NHANES] A nswer Date Recorded In a typical week, how many times do you talk on the phone with family, friends, or neighbors? Three times a week 04/23/2023 How often do you get togethe r with friends or relatives? Once a week 04/23/2023 How often do you attend [facility] or confucianist services? Never 04/23/2023 Do you belong to any clubs o r organizations such as episcopalian groups, unions, fraternal or athletic groups, or school groups? No 04/23/2023 How often do you attend meet ings of the clubs or organizations you belong to? Never 04/23/2023 Are you , , di vorced, , never , or living with a partner? 04/23/2023 AUDIT-C Answer Date Recorded Q1: How often do you have a drink containing alcohol? Never 04/23/2023 Q2: How many drinks containi ng alcohol do you have on a typical day when you are drinking? Patient does not drink 08/02/202 3 Q3: How often do you have si x or more drinks on one occasion? Never 04/23/2023 Overall Financial Resource Strain (CARDIA) Answe r Date Recorded How hard is it for you to pa y for the very basics like food, housing, medical care, and heating? Not hard at all 04/23/2023 Hunger Vital Sign Answer Date Recorded Within the past 12 months, y ou worried that your food would run out before you got the money to buy more. Never true 04/23/20 23 Within the past 12 months, t he food you bought just didn't last and you didn't have money to get more. Never true 04/23/2023 PRAPARE - Transportation Answer Date Re corded In the past 12 months, has l ack of transportation kept you from medical appointments or from getting medications? No 10/2022 In the past 12 months, has l ack of transportation kept you from meetings, work, or from getting things needed for daily living? No 04/23/2023 Housing Stability Vital Sign Answer Jameel e Recorded In the last 12 months, was t here a time when you were not able to pay the mortgage or rent on time? No 04/23/2023 In the last 12 months, how many places have you lived? 1 04/23/2023 In the last 12 months, was t here a time when you did not have a steady place to sleep or slept in a mcfp (including now)? No 04/23/2023 Personal Safety Answer Date Recorded Have you ever been in or are you currently in a harmful physical or emotional relationship or is someone making you feel afraid or unsafe? Denies 04/23/2023 Education Answer Date Recorded What is the highest level of school you have completed or the highest degree you have received? High school graduate 04/23/2023 Comments Unknown Sex and Gender Information Value Date Recorded Sex Assigned at Not on file Legal Sex Female 6:16 PM CDT Gender Identity Not on file Sexual Orientation Not on file Obstetrics History Last Filed Vital Signs Vital Sign Reading Time Taken Comments Blood Pressure 149/73 04/24/2023 12:03 PM CDT Pulse 68 04/24/2023 12:03 PM CDT Temperature 37.1 C (98.8 F) 04/24/2023 12:03 PM CDT Respiratory Rate 22 04/24/2023 12:0 3 PM CDT Oxygen Saturation 97% 04/24/2023 12: 03 PM CDT Inhaled Oxygen Concentration - - Weight 117.1 kg (258 lb 1.6 oz) 04/23/2023 2:15 AM CDT Height 157.5 cm (5' 2 ) 04/23/2023 2:15 AM CDT Body Mass Index 47.21 04/23/2023 2:15 AM CDT Plan of Treatment Health Maintenance Due Date Last Done Comments Albumin Creatinine Ratio, Urine 1961 Breast Cancer Screening-Mammogram 1961 Cervical Cancer Screening 1961 Colon Cancer Screening-Colonoscopy 1961 Depression Screening 1961 Hepatitis C Screening 1961 Dilated Eye Exam 1961 Foot Exam 1961 DTaP/Tdap/Td Vaccine (1 - Tdap) 1972 Hepatitis B Screening 1979 Regular Well Visit/Exam 18-64 1979 Zoster Vaccine (1 of 2) 2011 Hemoglobin A1C 09/14/2017 03/15/2017 Lipid Panel 03/14/2018 03/14/2017 Pneumococcal vaccine <65 (2 of 2 - PCV) 03/13/2022 03/13/2021 eGFR 04/24/2024 04/24/2023, 08/0 09/2022, 03/04/2022, Additional history exists Covid-19 Vaccine (3 - 2023-2 5 season) 2024 07/18/2021, 06/18/2021 Influenza Vaccine (#1) 2024 06/12/2018 Procedures Procedure Name Priority Date/Time Associated Diagnosis Comments EGFR Routine 04/24/2023 3:25 AM CDT HEMOGLOBIN A1C Routine 03/15/2017 4:55 AM CDT LIPID PANEL STAT 03/14/2017 10:54 PM CDT from Last 3 Months or Most Recently Relevant to Health Maintenance Results * eGFR (04/24/2023 3:25 AM CDT) eGFR 72 mL/min/1. 73 m2 [facility] ([place]) Comment: Interpretive Data Reference Interval Normal >/= 90 mL/min/1.73m2 Mildly decreased* 60 - 89 mL/min/1.73m2 Mildly to moderately decreased 45 - 59 mL/min/1.73m2 Moderately to severely decreased 30 - 44 mL/min/1.73m2 Severely decreased 15 - 29 mL/min/1.73m2 Kidney Failure < 15 mL/min/1.73m2 *Relative to young adult level Estimated glomerular filtration rate is determined by the 2020 CKD-EPI equation recommended by the National Kidney Foundation (A Unifying Approach to GFR Estimation: Recommendations of the NKF-ASK Task Force on Reassessing the Inclusion of Race in Diagnosing Kidney Disease, JASN 2020). The CKD-EPI equation should not be used for patients with unstable renal function and has not been validated in children and those over 70. Current interpretive data was last reviewed 2021. Blood 04/24/2023 3:25 AM CDT 04/24/2023 3:33 AM CDT us Wendy Gabriel MD LAB BLOOD ORDERABLES Final Result [facility] ([place]) 1 [facility] Department of Laboratories [place], [place] [id number] * (ABNORMAL) Hemoglobin A1c (03/15/2017 4:55 AM CDT) Hgb A1C 9.4(H) 4.0 - 6.0 % [facility] Comment: Interpretive Data Hemoglobin A1c ADA Interpretive Guidelines <7% Glycemia controlled >8% Hyperglycemia, additional action recommended Dale Immunochemical Method Current interpretive data was last revised on 2016 [facility] [place] [address] Estimated Average Glucose 223 mg/dL [facility] Comment:Testing performed by : [facility] [address], [place] [address] Blood specimen (specimen) 03/15/2017 4:55 AM CDT 03/15/2017 12:39 PM CDT us Geovanni Pan MD LAB BLOOD ORDERABLES Final Resu lt [facility] [address] Department [place] [address] * (ABNORMAL) Lipid panel (03/14/2017 10:54 PM CDT) Cholesterol 258(H) 100 - 200 mg/dL [facility] Comment: Interpretive Data Desirable: <200 mg/dL Borderline high: 200-239 mg/dL High: >240 mg/dL Current interpretive data was last revised on 2016. Triglycerides 176(H) 10 - 150 mg/dL [facility] Comment: Interpretive Data Desirable: < 150 mg/dL Borderline High: 150 - 199 mg/dL High: 200 - 499 mg/dL Very High: > or = 499 mg/dL Current interpretive data was last revised on 2016. HDL 28(L) 40 - 59 mg/dL [facility] Comment: Interpretive Data Less than 40 mg/dL - Low; A major risk factor for heart disease. Greater than or equal to 60 mg/dL - High; Considered protective of heart disease. Current interpretive data was last revised on 2016. LDL, calculated 195(H) 60 - 129 mg/dL [facility] Comment: Interpretive Data Optimal: < 100 mg/dL Near Optimal: 100 - 129 mg/dL Borderline High: 130 - 159 mg/dL High: > 160 mg/dL Current interpretive data was last revised on 2016. Non-HDL Cholesterol 230 mg/dL [facility] Comment: Interpretive Data When triglycerides are >200 mg/dL, non-HDL C is a secondary target of therapy, with a goal 30 mg/dL higher than the identified LDL-C goal. Current interpretive data was last revised 2016. Blood specimen (specimen) 03/14/2017 10:54 PM CDT 03/15/2017 6:08 AM CDT Narrative [facility] - 03/15/2017 6:13 AM CDT IMMEDIATELY UPON ARRIVAL TO FLOOR, IF NOT ALREADY DONE (MAY USE BLOOD DRAWN FROM ED - FASTING NOT REQUIRED us Eriberto Hoffman MD LAB BLOOD ORDERABLES Final Resu lt [facility] [address] [facility] Department [place] [address] from Last 3 Months or Most Recently Relevant to Health Maintenance Insurance [place] Advance Directives For more information, please contact: [phone] * Full Code (Latest Code Status on File) Date Activated Date Inactivated Comments 04/23/2023 2:10 AM 04/24/2023 5:55 PM Care Teams Mold Engraver Relationship Specialty Start Date End Date Mare Castano MD PCP - General Family Medicine 04/24/23
--- OUTSIDE RECORDS SUMMARY | 2024-12-31 18:16 | XMS_ITS | Encounter Summary ---
Author Organization [facility] Address [address] [place] [address] Phone Care Team Providers Care Toll Lineman Name Role Phone Travis Lr MD Primary Care Provider [phone] Cassandra Holt MD Unavailable Carole Abel STRAINER CLEANER Unavailable Unavailab le Reason for Visit * Reason Comments Medication Refill Encounter Details Date Type Department Care Team (Late st Contact Info) Description 05/04/2023 Refill [facility] Family [facility] [address] [place] [address] Travis Lr MD [address] [address] Medication Refill Social History Tobacco Use Types [...] encounter Miscellaneous Notes * Telephone Encounter - Nell Guillermo RN - 05/04/2023 11:49 AM CDT Medication failed the protocol, provider to review and approve the medication order if appropriate. Requested Prescriptions Pending Prescriptions Disp Refills gabapentin (NEURONTIN) 300 MG Capsule [Pharmacy Med Name: Gabapentin 300 MG Oral Capsule] 270 Capsule 0 Sig: TAKE 1 CAPSULE BY MOUTH THREE TIMES DAILY Not Delegated - Anticonvulsants Excluding Benzodiazepines Protocol Failed - 05/04/2023 11:09 AM Failed - This refill cannot be delegated Passed - Visit with relevant provider in past 12 months or upcoming 90 days Recent Visits Date Type Provider Dept 04/22/23 Telemedicine Travis Lr MD [facility] 01/21/23 Office Visit Travis Lr MD [facility] 10/24/22 Office Visit Travis Lr MD [facility] 07/30/22 Office Visit Travis Lr MD [facility] 07/24/22 Office Visit Travis Lr MD [facility] Showing recent visits within past 365 days and meeting all other requirements Future Appointments Date Type Provider Dept 07/23/23 Appointment [facility] MD [facility] [place] Showing future appointments within next 90 days and meeting all other requirements documented in this encounter Plan of Treatment Not on file documented as of this encounter Visit Diagnoses Not on filedocumented in this encounter Additional Health Concerns Assessment Noted Time PHQ-9 Depression Total Score: 0 10/24/19 2:00 PM HYDRO STATION OPERATOR documented as of this encounter Care Teams Toll Lineman Relationship Specialty Start Date End Date Travis Lr MD [address] [facility] [address] [place] [address] PCP - General Family Medicine 08/08/15 09/30/24 Cassandra Holt MD [address] [facility] [address] [place] [address] Consulting Physician Endocrinology 04/10/22 11/09/24 Carole Abel LSW [place] Client Representative 06/19/23 08/26/23 documented as of this encounter
--- OUTSIDE RECORDS SUMMARY | 2024-12-31 18:16 | XMS_ITS | Encounter Summary ---
Author Organization [facility] Address [address] [place] [address] Phone Care Team Providers Care Market Survey Representative Name Role Phone Travis Lr MD Primary Care Provider [phone] Cassandra Holt MD Unavailable Carole Abel NURSERY TEACHER Unavailable Unavailab le Reason for Visit * Reason Comments Medication Refill Encounter Details Date Type Department Care Team (Late st Contact Info) Description 04/11/2023 Refill [facility] [address] [place] [address] Travis Lr MD [address] [address] Medication Refill Social History Tobacco Use Types [...] Telephone Encounter - Amara Kilgore RN - 04/11/2023 5:17 PM CDT Name from pharmacy: tiZANidine HCl 2 MG Oral Tablet Will file in chart as: tiZANidine (ZANAFLEX) 2 MG Tablet The original prescription was reordered on 04/11/2023 by Alma Romero APRN, PEARL CUTTER. * Telephone Encounter - Amara Kilgore RN - 04/11/2023 3:24 PM CDT duplicate documented in this encounter Plan of Treatment Not on file documented as of this encounter Visit Diagnoses Not on filedocumented in this encounter Additional Health Concerns Assessment Noted Time PHQ-9 Depression Total Score: 0 10/24/19 23 2:00 PM ACADEMIC PHYSICIAN documented as of this encounter Care Teams Market Survey Representative Relationship Specialty Start Date End Date Travis Lr MD [address] [address] [place] [address] PCP - General Family Medicine 08/08/15 09/30/24 Cassandra Holt MD [address] [facility] [address] [place] [address] Consulting Physician Endocrinology 04/10/22 11/09/24 Carole Abel LSW [place] Telegraph Repeater Mechanic 06/19/23 08/26/23 documented as of this encounter
--- OUTSIDE RECORDS SUMMARY | 2024-12-31 18:16 | XMS_ITS | Encounter Summary ---
Author Organization [facility] Address [address] [place] [address] Phone Care Team Providers Care Auditor Supervisor Name Role Phone Travis Lr MD Primary Care Provider [phone] Cassandra Holt MD Unavailable Reason for Visit * Reason Comments Medication Refill Encounter Details Date Type Department Care Team (Late st Contact Info) Description 12/28/2023 Refill [facility] Family Medicine [facility] [address] [place] [address] Travis Lr MD [address] [address] Medication Refill Social History Tobacco Use Types Packs/Day Years Used Date Smoking Tobacco: Former Cigarettes 0 03/16/2017 - 04/29/2017 Smokeless Tobacco: Never Alcohol Use Standard Drinks/Week Comments No 0 (1 standard drink = 0.6 oz pur e alcohol) [facility] Utilities Answer Date Recorded In the past 12 months has [employer] electric, gas, oil, or water company threatened [...] week 11/08/2023 How often do you attend hoahaoism or hindu serv ices? Patient declined 11/08/2023 Do you belong to any clubs o r organizations such as hoahaoism groups, unions, fraternal or athletic groups, or [...] Total Score - Questions 1-9 0 06/24 [facility] of Occupat ional [facility] - Occupational Stress Questionnaire Answer Date Recorded [...] place to sleep or slept in a halfway (including now)? No 11/08/2023 Education Answer Date [...] Telephone Encounter - Nell Guillermo RN - 12/28/2023 7:56 PM CDT Medication(s) refilled and signed per [facility] Chronic Medication Refill Standing Order for Pediatricand Adult Patients. Requested Prescriptions Pending Prescriptions Disp Refills carvedilol (COREG) 6.25 MG Tablet [Pharmacy Med Name: Carvedilol 6.25 MG Oral Tablet] 180 Tablet 0 Sig: Take 1 tablet by mouth twice daily Beta-Blockers Protocol Passed - 12/28/2023 7:53 AM Passed - BP on record in the past year Clinician-entered: BP Readings from Last 3 Encounters: 11/10/23 126/80 07/22/23 106/60 05/25/23 149/82 Patient-entered: No data recorded Passed - Visit with relevant provider in past 12 months or upcoming 90 days Recent Visits Date Type Provider Dept 11/10/23 Office Visit Travis Lr MD [facility] 07/22/23 Office Visit Travis Lr MD [facility] 05/22/23 Office Visit Travis Lr MD [facility] 05/20/23 Office Visit Travis Lr MD [facility] 05/12/23 [facility] 04/[facility]/23 Telemedicine Travis Lr MD [facility] 01/21/23 Office Visit Travis Lr MD [facility] [place] Showing recent visits within past 365 days and meeting all other requirements Future Appointments Date Type Provider Dept 02/09/24 Appointment Travis Lr MD [facility] Showing future appointments within next 90 days and meeting all other requirements documented in this encounter Plan of Treatment Not on file documented as of this encounter Goals Goal Patient Goal Type Associated Problems Recent Progress Patient-Stated? Author Transportation Transportation On track(07/31 1:09 PM OLIVE PICKER) Carole Herrera LSW Note: Goal: Patient to obtain access to all needed medical services Anticipated Completion Date: In the next 3 months Patient's Preferred Goal: Standard Challenges/Barriers: Lack of knowledge of local resources Readiness to Change: Thinking about making a change Notify Care Team if: You have any issues completing goals outlined below Short Term Goals: [facility] to mail out information about [facility] Transit transportation services \ Phone call to schedule in [facility] trips within 24 hours out of [facility] call within 72 hours. documented as of this encounter Visit Diagnoses Not on filedocumented in this encounter Additional Health Concerns Assessment Noted Time PHQ-9 Depression Total Score: 0 07/22/20 23 10:21 AM CDT documented as of this encounter Care Teams Auditor Supervisor Relationship Specialty Start Date End Date Travis Lr MD #[address] [address] PCP - General Family Medicine 08/08/15 09/30/24 Cassandra Holt MD #[address] [address] Consulting Physician Endocrinology 04/10/22 11/09/24 documented as of this encounter
--- OUTSIDE RECORDS SUMMARY | 2024-12-31 18:16 | XMS_ITS | Encounter Summary ---
Author Organization [facility] Address [address] [place] [address] Phone Care Team Providers Care Automotive Upholsterer Name Role Phone Travis Lr MD Primary Care Provider [phone] Cassandra Holt MD Unavailable Carole Abel OPERATIONS VOCATIONAL INSTRUCTOR Unavailable Unavailab le Reason for Visit * Reason Comments Medication Refill Encounter Details Date Type Department Care Team (Late st Contact Info) Description 11/14/2022 Refill [facility] - Family [facility] [address] [place] [address] Travis Lr MD #[address] [address] Medication Refill Social History Tobacco Use Types [...] suspected to have Coronavirus/COVID-19? No / Unsure 10/23/2022 3:43 PM BULK FOLDER documented as of this encounter Miscellaneous Notes * Telephone Encounter - Nan Mendiola RN - 11/14/2022 10:07 AM BULK FOLDER Medication failed the protocol, provider to review and approve the medication order if appropriate. Requested Prescriptions Pending Prescriptions Disp Refills citalopram (CeleXA) 40 MG Tablet [Pharmacy Med Name: Citalopram Hydrobromide 40 MG Oral Tablet] 90 Tablet 0 Sig: Take 1 tablet by mouth once daily Citalopram (Celexa) (6 Month Refill Only) Protocol Failed - 11/14/2022 1:52 AM Failed - Has an encounter in the past 6 months with a depression, anxiety, adjustment disorder, OCD, or PTSD visit diagnosis Passed - Citalopram dose is less than or equal to 40mg / day Passed - Visit with relevant provider in past 6 months or upcoming 90 days Recent Visits Date Type Provider Dept 10/24/22 Office Visit Travis Lr MD [facility] 07/30/22 Office Visit Travis Lr MD [facility] 07/24/22 Office Visit Travis Lr MD [facility] Showing recent visits within past 182 days and meeting all other requirements Future Appointments Date Type Provider Dept 01/21/23 Appointment Travis Lr MD [facility] Showing future appointments within next 90 days and meeting all other requirements Passed - Patient has established therapy with Citalopram for at least 6 months gabapentin (NEURONTIN) 300 MG Capsule [Pharmacy Med Name: Gabapentin 300 MG Oral Capsule] 270 Capsule 0 Sig: TAKE 1 CAPSULE BY MOUTH THREE TIMES DAILY Not Delegated - Anticonvulsants Excluding Benzodiazepines Protocol Failed - 11/14/2022 1:52 AM Failed - This refill cannot be delegated Passed - Visit with relevant provider in past 12 months or upcoming 90 days Recent Visits Date Type Provider Dept 10/24/22 Office Visit Travis Lr MD [facility] 07/30/22 Office Visit Travis Lr MD [facility] 07/24/22 Office Visit Travis Lr MD [facility] 04/04/22 Office Visit Travis Lr MD [facility] 03/05/22 Office Visit Aj Stevenson APRN, [facility] [place] 11/28/21 Office Visit Alma Romero APRN, LEGAL AID [facility] Show[facility] recent visits within past 365 days and meeting all other requirements Future Appointments Date Type Provider Dept 01/21/23 Appointment Travis Lr MD [facility] [place] Showing future appointments within next 90 days and meeting all other requirements FOLDER documented in this encounter Plan of Treatment Not on file documented as of this encounter Visit Diagnoses Diagnosis Anxiety Anxiety state, unspecified documented in this encounter Additional Health Concerns Assessment Noted Time PHQ-9 Depression Total Score: 0 10/24/19 2:00 PM BULK FOLDER documented as of this encounter Care Teams Automotive Upholsterer Relationship Specialty Start Date End Date Travis Lr MD [address] [facility] [address] [place] [address] PCP - General Family Medicine 08/08/15 09/30/24 Cassandra Holt MD [address] [facility] [address] [place] [address] Consulting Physician Endocrinology 04/10/22 11/09/24 Carole Abel LSW [place] Park Landscape Architect 06/19/23 08/26/23 documented as of this encounter
--- OUTSIDE RECORDS SUMMARY | 2024-12-31 18:16 | XMS_ITS | Encounter Summary ---
Author Organization [facility] Address [address] [place] [address] Phone Care Team Providers Care Conference Producer Name Role Phone Unavailable Primary Care Provider Unavailabl e Reason for Visit * Reason Comments Medication Refill Encounter Details Date Type Department Care Team (Late st Contact Info) Description 11/30/[address] [facility] - Family Medicine [facility] #2 [place] [address] Travis Lr MD #[address] [address] Medication Refill Social History Tobacco Use Types Packs/Day Years Used Date Smoking Tobacco: Former Cigarettes 0 03/16/2017 - 04/29/2017 Smokeless Tobacco: Never Alcohol Use Standard Drinks/Week Comments No 0 (1 standard drink = 0.6 oz pur e alcohol) [facility] Utilities Answer Date Recorded In the past 12 months has [employer] electric, gas, oil, or water company threatened [...] week 11/08/2023 How often do you attend jain or buddhism serv ices? Patient declined 11/08/2023 Do you belong to any clubs o r organizations such as jain groups, unions, fraternal or athletic groups, or [...] Total Score - Questions 1-9 0 06/24 [facility] - Occupational Stress Questionnaire Answer Date [...] place to sleep or slept in a alf (including now)? No 11/08/2023 Education Answer Date [...] Author Transportation Transportation On track(07/31 1:09 PM HOUSEKEEPER HEAD) No Carole Abel LSW Note: Goal: Patient [...] ANA URRUTIA to mail out information about [facility] Transit transportation services \ Phone call to schedule in [facility] trips within 24 hours out of [facility] call within 72 hours. documented as of this encounter Visit Diagnoses Diagnosis Anxiety Anxiety state, unspecified documented in this encounter Additional Health Concerns Assessment Noted Time PHQ-9 Depression Total Score: 0 07/22/20 23 10:21 AM CDT documented as of this encounter
--- OUTSIDE RECORDS SUMMARY | 2024-12-31 18:16 | XMS_ITS | Encounter Summary ---
Author Organization [facility] Address [address] [place] [address] Phone Care Team Providers Care Cement Sack Breaker Name Role Phone Travis Lr MD Primary Care Provider [phone] Cassandra Holt MD Unavailable Carole Abel TECHNICAL EXPERT Unavailable Unavailab le Reason for Visit * Reason Comments Medication Refill Encounter Details Date Type Department Care Team (Late st Contact Info) Description 04/10/2023 [facility]ill [facility] #2 [place] [address] Travis Lr MD #[address] [address] Medication Refill Social History Tobacco Use Types [...] Encounter - Amara Kilgore RN - 04/11/2023 11:58 AM CDT Name from pharmacy: ALPRAZolam 0.5 MG Oral Tablet Will file in chart as: ALPRAZolam (XANAX) 0.5 MG Tablet The original prescription was reordered on 04/10/2023 by Alma Romero APRN, WINDOW CLEANER. documented in this encounter Plan of Treatment Not on file documented as of this encounter Visit Diagnoses Diagnosis Anxiety Anxiety state, unspecified documented in this encounter Additional Health Concerns Assessment Noted Time PHQ-9 Depression Total Score: 0 10/24/19 23 2:00 PM VALET PARKING ATTENDANT documented as of this encounter Care Teams Cement Sack Breaker Relationship Specialty Start Date End Date Travis Lr MD #2 [facility] [address] [place] [address] PCP - General Family Medicine 08/08/15 09/30/24 Cassandra Holt MD #2 [facility] [address] [place] [address] Consulting Physician Endocrinology 04/10/22 11/09/24 Carole Abel LSW [place] Wastewater Treatment Operator 06/19/23 08/26/23 documented as of this encounter
--- OUTSIDE RECORDS SUMMARY | 2024-12-31 18:16 | XMS_ITS | Encounter Summary ---
Author Organization [facility] Address [address] [place] [address] Phone Care Team Providers Care Real Property Evaluator Name Role Phone Travis Lr MD Primary Care Provider [phone] Cassandra Holt MD Unavailable Carole Abel TRANSPLANT COORDINATOR Unavailable Unavailab le Reason for Visit * Reason Comments Medication Refill Encounter Details Date Type Department Care Team (Late st Contact Info) Description 08/16/2022 Refill [facility] #2 [place] [address] Travis Lr MD #[address] [address] Medication Refill Social History Tobacco Use Types Packs/Day Years Used Date Smoking Tobacco: Every Day Cigarettes 1.5 48.5 Started: 06/20/1976 Smokeless Tobacco: Never Alcohol Use Standard Drinks/Week Comments No 0 (1 standard drink = 0.6 oz pur e alcohol) PHQ-2 Answer Date Recorded Total Score - Questions 1-9 0 05/2022 Education Answer Date Recorded What is the highest level of school you have completed or the highest degree you have received? 12th grade 11/21/2020 Sexually Active Control Partners Comments Not Currently [...] suspected to have Coronavirus/COVID-19? No / Unsure 07/31/2022 11:56 AM PMO BUSINESS ANALYST documented as of this encounter Miscellaneous Notes * Telephone Encounter - Nan Mendiola RN - 08/16/2022 8:52 AM PMO BUSINESS ANALYST Refill requested too soon. BUSINESS ANALYST documented in this encounter Plan of Treatment Not on file documented as of this encounter Visit Diagnoses Not on filedocumented in this encounter Additional Health Concerns Assessment Noted Time PHQ-9 Depression Total Score: 0 11/29/19 10:00 AM PMO BUSINESS ANALYST documented as of this encounter Care Teams Real Property Evaluator Relationship Specialty Start Date End Date Travis Lr MD #2 [facility] [address] [place] [address] PCP - General Family Medicine 08/08/15 09/30/24 Cassandra Holt MD #2 [facility] [address] [place] [address] Consulting Physician Endocrinology 04/10/22 11/09/24 Carole Abel LSW MA [place] Upholsterer 06/19/23 08/26/23 documented as of this encounter
--- OUTSIDE RECORDS SUMMARY | 2024-12-31 18:16 | XMS_ITS | Referral Summary ---
Author Organization [facility] Address [address] [place] [address] Care Team Providers Care Skilled Nursing Facility Counselor Name Role Phone Mare Castano MD Primary Care Provider [phone] Allergies Active Allergy Reactions Criticality Noted Date [...] CAD (coronary artery disease) 03/04/2022 Overview (03/04/2022): [place] 2002 Depression 03/04/2022 DM (diabetes mellitus) 03/04/2022 HTN (hypertension) 03/04/2022 Hyperlipidemia 03/04/2022 IBS (irritable bowel syndrome) 03/04/2022 Overview (03/04/2022): DIARRHEA COPD exacerbation 11/23/2021 Pneumonia 11/22/2021 Social History Tobacco Use Types Packs/Day Years [...] week 04/23/2023 How often do you attend chur or baptist services? Never 04/23/2023 Do you belong to any clubs o r organizations such as denominational groups, unions, fraternal or athletic groups, or [...] place to sleep or slept in a senior care (including now)? No 04/23/2023 Personal Safety Answer [...] 04/23/2023 2:15 AM CDT Plan of Treatment Not on file Procedures Procedure Name Priority Date/Time Associated Diagnosis Comments EGFR Routine 04/24/2023 3:25 AM CDT HEMOGLOBIN A1C Routine 03/15/2017 4:55 AM CDT LIPID PANEL STAT 03/14/2017 10:54 PM CDT from Last 3 Months or Most Recently Relevant to Health Maintenance Results * eGFR (04/24/2023 3:25 AM CDT) eGFR 72 mL/min/1. 73 m2 [facility] ([place]) Comment: Interpretive Data Reference Interval Normal >/= [...] MD LAB BLOOD ORDERABLES Final Result [facility] [facility] [address] [facility] Department [place] [address] * (ABNORMAL) Hemoglobin A1c (03/15/2017 4:55 AM CDT) Hgb A1C 9.4(H) 4.0 - 6.0 % [facility] Comment: Interpretive Data Hemoglobin A1c ADA Interpretive Guidelines <7% Glycemia controlled >8% Hyperglycemia, additional action recommended Dale Immunochemical Method Current interpretive data was last revised on 2016 Testing performed by: [facility], [place] [address] Estimated Average Glucose 223 mg/dL [facility] Comment:Testing performed by : [facility], [place] [address] Blood specimen (specimen) 03/15/2017 4:55 AM CDT 03/15/2017 12:39 PM CDT Geovanni Pan MD LAB BLOOD ORDERABLES Final Resu lt Performing Organization Address City/State/[facility] Co de Phone Number KOFIDILMA [address] [address] Department [place] [address] * (ABNORMAL) Lipid panel (03/14/2017 10:54 PM CDT) Cholesterol 258(H) 100 - 200 mg/dL [facility] Comment: Interpretive Data Desirable: <200 mg/dL Borderline high: 200-239 mg/dL High: >240 mg/dL Current interpretive data was last revised on 2016. Triglycerides 176(H) 10 - 150 mg/dL [facility] Comment: Interpretive Data Desirable: < 150 mg/dL [...] MD LAB BLOOD ORDERABLES Final Resu lt [facility] [address] [place] [address] from Last 3 Months or Most Recently Relevant to Health Maintenance Insurance [employer] [facility] [place] Advance Directives For more information, please contact: [phone] * Full Code (Latest Code Status on File) Date Activated Date Inactivated Comments 04/23/2023 2:10 AM 04/24/2023 5:55 PM Care Teams Skilled Nursing Facility Counselor Relationship Specialty Start Date End Date Mare Castano MD PCP - General Family Medicine 04/24/23
--- OUTSIDE RECORDS SUMMARY | 2024-12-31 18:16 | XMS_ITS | Encounter Summary ---
Author Organization [facility] Address [address] [place] [address] Phone Care Team Providers Care Telescope Maintenance Name Role Phone Travis Lr MD Primary Care Provider [phone] Cassandra Holt MD Unavailable Carole Abel MACHINE CEMENTER Unavailable Unavailab le Reason for Visit * Reason Comments Medication Refill Encounter Details Date Type Department Care Team (Late st Contact Info) Description 08/21/2022 Refill [facility] #2 [place] [address] Travis Lr MD #[address] [address] Medication Refill Social History Tobacco Use Types [...] Coronavirus/COVID-19? No / Unsure 07/31/2022 11:56 AM PATROL POLICE SERGEANT documented as of this encounter Miscellaneous Notes * Telephone Encounter - Amara Kilgore RN - 08/22/2022 3:20 PM CST Medication failed the protocol, provider to review and approve the medication order if appropriate. Requested Prescriptions Pending Prescriptions Disp Refills gabapentin (NEURONTIN) 300 MG Capsule [Pharmacy Med Name: Gabapentin 300 MG Oral Capsule] 270 Capsule 0 Sig: TAKE 1 CAPSULE BY MOUTH THREE TIMES DAILY Not Delegated - Anticonvulsants Excluding Benzodiazepines Protocol Failed - 08/21/2022 5:04 PM Failed - This refill cannot be delegated Passed - Visit with relevant provider in past 12 months or upcoming 90 days Recent Visits Date Type Provider Dept 07/30/22 Office Visit Travis Lr MD [facility] 07/24/22 Office Visit Travis Lr MD [facility] 04/04/22 Office Visit Travis Lr MD [facility] 03/05/22 Office Visit [facility] [place] 11/28/21 Office Visit Alma Romero APRN, [facility] [place] 10/04/21 Office Visit Travis Lr MD [facility] Showing recent visits within past 365 days and meeting all other requirements Future Appointments Date Type Provider Dept 10/24/22 Appointment Travis Lr MD [facility] Showing future appointments within next 90 days and meeting all other requirements OL POLICE SERGEANT documented in this encounter Plan of Treatment Not on file documented as of this encounter Visit Diagnoses Not on filedocumented in this encounter Additional Health Concerns Assessment Noted Time PHQ-9 Depression Total Score: 0 11/29/19 10:00 AM PATROL POLICE SERGEANT documented as of this encounter Care Teams Telescope Maintenance Relationship Specialty Start Date End Date Travis Lr MD #[address] [address] [place] [address] PCP - General Family Medicine 08/08/15 09/30/24 Cassandra Holt MD [facility] [address] [place] [address] Consulting Physician Endocrinology 04/10/22 11/09/24 Carole Abel LSW [place] Speech Pathology Assistant 06/19/23 08/26/23 documented as of this encounter
--- OUTSIDE RECORDS SUMMARY | 2024-12-31 18:16 | XMS_ITS | Encounter Summary ---
Author Organization [facility] Address [address] [place] [address] Phone Care Team Providers Care Telegraph Installer Name Role Phone Travis Lr MD Primary Care Provider [phone] Cassandra Holt MD Unavailable Carole Abel IT SECURITY ADMINISTRATOR Unavailable Unavailab le Reason for Visit * Reason Comments Medication Refill Encounter Details Date Type Department Care Team (Late st Contact Info) Description 08/01/2023 Refill [facility] #2 [place] [address] Travis Lr MD #[address] [address] Medication Refill Social History Tobacco Use Types Packs/Day Years Used Date Smoking Tobacco: Every Day Cigarettes 1.5 48.5 Started: 06/20/1976 Smokeless Tobacco: Never Alcohol Use Standard Drinks/Week Comments No 0 (1 standard drink = 0.6 oz pur e alcohol) PHQ-2 Answer Date Recorded Total Score - Questions 1-9 0 06/24 Education Answer Date Recorded What is the [...] suspected to have Coronavirus/COVID-19? No / Unsure 07/22/2023 10:17 AM CDT documented as of this encounter Miscellaneous Notes * Telephone Encounter - Amara Kilgore RN - 08/01/2023 12:26 PM CST Medication failed the protocol, provider to review and approve the medication order if appropriate. Requested Prescriptions Pending Prescriptions Disp Refills gabapentin (NEURONTIN) 300 MG Capsule [Pharmacy Med Name: Gabapentin 300 MG Oral Capsule] 270 Capsule 0 Sig: TAKE 1 CAPSULE BY MOUTH THREE TIMES DAILY Not Delegated - Anticonvulsants Excluding Benzodiazepines Protocol Failed - 08/01/2023 11:04 AM Failed - This refill cannot be delegated Passed - Visit with relevant provider in past 12 months or upcoming 90 days Recent Visits Date Type Provider Dept 07/22/23 Office Visit Travis Lr MD [facility] 05/22/23 Office Visit Travis Lr MD [facility] 05/20/23 Office Visit Travis Lr MD [facility] 05/12/23 Office Visit Aj Stevenson APRN, CNP [facility] [place] 04/22/23 Telemedicine Travis Lr MD [facility] 01/21/23 Office Visit Travis Lr MD [facility] 10/24/22 [facility] recent visits within past 365 days and meeting all other requirements Future Appointments Date Type Provider Dept 10/23/23 [facility]ointment [facility] Show[facility] future appointments within next 90 days and meeting all other requirements ETRICAL ANESTHESIOLOGIST documented in this encounter Plan of Treatment Not on file documented as of this encounter Goals Goal Patient Goal Type Associated Problems Recent Progress Patient-Stated? Author Transportation Transportation On track(07/31 1:09 PM OBSTETRICAL ANESTHESIOLOGIST) No Carole Abel LSW Note: Goal: Patient [...] ANA URRUTIA to mail out information about [facility] Transit transportation services \ Phone call to schedule in [facility] trips within 24 hours out of [facility] call within 72 hours. documented as of this encounter Visit Diagnoses Not on filedocumented in this encounter Additional Health Concerns Assessment Noted Time PHQ-9 Depression Total Score: 0 07/22/20 23 10:21 AM CDT documented as of this encounter Care Teams Telegraph Installer Relationship Specialty Start Date End Date Travis Lr MD #2 [facility] [address] [place] [address] PCP - General Family Medicine 08/08/15 09/30/24 Cassandra Holt MD #2 [facility] [address] [place] [address] Consulting Physician Endocrinology 04/10/22 11/09/24 Carole Abel LSW [place] Stake Driver 06/19/23 08/26/23 documented as of this encounter
--- OUTSIDE RECORDS SUMMARY | 2024-12-31 18:16 | XMS_ITS | Encounter Summary ---
Author Organization [facility] Address [address] [place] [address] Phone Care Team Providers Care Recreational Resort Manager Name Role Phone Travis Lr MD Primary Care Provider Cassandra Holt MD Unavailable Carole Abel RV DETAILER Unavailable Unavailab le Reason for Visit * Reason Comments Medication Refill Encounter Details Date Type Department Care Team (Late st Contact Info) Description 07/22/2023 Refill [facility] #[address] [place] [address] Travis Lr MD #[address] [address] Medication Refill Social History Tobacco Use Types [...] AM CDT documented as of this encounter Functional Status * Question Answer Date of Assessment Author Little interest or pleasure in doing things Not at all 07/22/2023 10:21 AM CDT Meghan Gilliam Be th Feeling down, depressed, or hopeless Not at all 07/22/2023 10:21 AM CDT Meghan Gilliam th * Over the past 2 weeks, how often have you been bothered by any of the following problems? Question Answer Date of Assessment Author Patient Health Questionnaire -2 Score 0 07/22/2023 10:21 AM CDT Meghan Gilliam th documented as of this encounter Miscellaneous Notes * Telephone Encounter - Amara Kilgore RN - 07/23/2023 7:05 AM CDT Name from pharmacy: tiZANidine HCl 2 MG Oral Tablet Will file in chart as: tiZANidine (ZANAFLEX) 2 MG Tablet The original prescription was reordered on 07/22/2023 by Travis Lr MD. * Telephone Encounter - Amara Kilgore RN - 07/22/2023 3:33 PM CDT duplicate documented in this encounter Plan of Treatment Not on file documented as of this encounter Goals Goal Patient Goal Type Associated Problems Recent Progress Patient-Stated? Author Transportation Transportation On track(07/31 1:09 PM TRAFFIC SIGNAL REPAIRER) Carole Herrera LSW Note: Goal: Patient to obtain access to all needed medical services Anticipated Completion Date: In the next 3 months Patient's Preferred Goal: Standard Challenges/Barriers: Lack of knowledge of local resources Readiness to Change: Thinking about making a change Notify Care Team if: You have any issues completing goals outlined below Short Term Goals: NAA CM to mail out information about [facility] Transit transportation services \ Phone call to schedule in [facility] trips within 24 hours out of county call within 72 hours. documented as of this encounter Visit Diagnoses Not on filedocumented in this encounter Additional Health Concerns Assessment Noted Time PHQ-9 Depression Total Score: 0 07/22/20 23 10:21 AM CDT documented as of this encounter Care Teams Recreational Resort Manager Relationship Specialty Start Date End Date Travis Lr MD #2 [facility] [address] [place] [address] PCP - General Family Medicine 08/08/15 09/30/24 Cassandra Holt MD #2 [facility] [address] [place] [address] Consulting Physician Endocrinology 04/10/22 11/09/24 Carole Abel LSW [place] Tube Machine Operator 06/19/23 08/26/23 documented as of this encounter
--- OUTSIDE RECORDS SUMMARY | 2024-12-31 18:16 | XMS_ITS | Encounter Summary ---
Author Organization [facility] Address [address] [place] [address] Phone Care Team Providers Care Home Appliance Washing Machine Mechanic Name Role Phone Travis Lr MD Primary Care Provider [phone] Cassandra Holt MD Unavailable Reason for Visit * Reason Comments Medication Refill Encounter Details Date Type Department Care Team (Late st Contact Info) Description 11/03/2023 Refill [facility] Medicine [facility] #2 [place] [address] Travis Lr MD #[address] [address] Medication Refill Social History Tobacco Use Types [...] Telephone Encounter - Amara Kilgore RN - 11/03/2023 1:51 PM CST Medication failed the protocol, provider to review and approve the medication order if appropriate. Requested Prescriptions Pending Prescriptions Disp Refills gabapentin (NEURONTIN) 300 MG Capsule [Pharmacy Med Name: Gabapentin 300 MG Oral Capsule] 270 Capsule 0 Sig: TAKE 1 CAPSULE BY MOUTH THREE TIMES DAILY Not Delegated - Anticonvulsants Excluding Benzodiazepines Protocol Failed - 11/03/2023 6:52 AM Failed - This refill cannot be delegated Passed - Visit with relevant provider in past 12 months or upcoming 90 days Recent Visits Date Type Provider Dept 07/22/23 Office Visit Travis [facility] MD [facility] [place] 05/22/23 Office Visit Travis Lr MD [facility] 05/20/23 Office Visit Travis Lr MD [facility] 05/12/23 Office Visit Aj Stevenson APRN, CNP [facility] [place] 04/22/23 Telemedicine Travis Lr MD [facility] 01/21/23 Office Visit Travis Lr MD [facility] [place] Showing recent visits within past 365 days and meeting all other requirements Future Appointments Date Type Provider Dept 11/10/23 Appointment Travis Lr MD [facility] [place] Showing future appointments within next 90 days and meeting all other requirements STOCK MACHINE LOADER documented in this encounter Plan of Treatment Not on file documented as of this encounter Goals Goal Patient Goal Type Associated Problems Recent Progress Patient-Stated? Author Transportation Transportation On track(07/31 1:09 PM RAW STOCK MACHINE LOADER) No Carole Abel LSW Note: Goal: Patient [...] ANA URRUTIA to mail out information about [facility] Transit transportation services \ Phone call to schedule in [facility] trips within 24 hours out of county call within 72 hours. documented as of this encounter Visit Diagnoses Not on filedocumented in this encounter Additional Health Concerns Assessment Noted Time PHQ-9 Depression Total Score: 0 07/22/20 23 10:21 AM CDT documented as of this encounter Care Teams Home Appliance Washing Machine Mechanic Relationship Specialty Start Date End Date Travis Lr MD #2 [facility] [address] [place] [address] PCP - General Family Medicine 08/08/15 09/30/24 Cassandra Holt MD #2 [facility] [address] [place] [address] Consulting Physician Endocrinology 04/10/22 11/09/24 documented as of this encounter
--- OUTSIDE RECORDS SUMMARY | 2024-12-31 18:17 | XMS_ITS | Encounter Summary ---
Author Organization [facility] Address [address] [place] [address] Phone Care Team Providers Care Marketing Campaign Analyst Name Role Phone Travis Lr MD Primary Care Provider Carole Abel DESK MAKER Unavailable Unavailab le Cassandra Holt MD Unavailable Carole Abel Unavailable Unavailab le Encounter Details Date Type Department Care Team (Late st Contact Info) Description 03/26/2021 Telephone [facility] [address] [place] [address] Travis Lr MD #[address] [address] Social History Tobacco Use Types Packs/Day Years Used Date Smoking Tobacco: Every Day Cigarettes 0.5 48.5 Started: 06/20/1976 Smokeless Tobacco: Never Alcohol Use Standard Drinks/Week Comments No 0 (1 standard drink = 0.6 oz pur e alcohol) PHQ-2 Answer Date Recorded Total Score - Questions 1-9 1 11/20 Education Answer Date Recorded What is the [...] Exposure Response Date Recorded In the last month, have you been in contact with someone who was confirmed or suspected to have Coronavirus / COVID-19? No / Unsure 03/13/2021 10:11 AM CDT documented as of this encounter Miscellaneous Notes * Telephone Encounter - Rhonda Henao - 03/26/2021 6:32 AM CDT Authorization denied through: AIM Reason for denial: Requests for advanced imaging to follow up prior imaging are generally limited to certain x-ray abnormalities. Peer to Peer review offered: yes Case #: [id number] Phone #: [phone] Appointment date: N/A Facility: [facility] CPT: 49848 Test: MRI L-SPINE W/O CONTRAST documented in this encounter Plan of Treatment Not on file documented as of this encounter Visit Diagnoses Not on filedocumented in this encounter Additional Health Concerns Infection Onset Date Last Indicated Resolved Time COVID - 19 11/22/2021 11/22/2021 11/22/2021 3:58 PM GROCERY STORE COURTESY CLERK Assessment Noted Time PHQ-9 Depression Total Score: 1 12/09/19 21 10:23 AM CDT documented as of this encounter Care Teams Marketing Campaign Analyst Relationship Specialty Start Date End Date Travis Lr MD #2 [facility] [address] [place] [address] PCP - General Family Medicine 08/08/15 09/30/24 Carole Abel LSW [place] Research And Development Technician 07/26/21 01/22/22 Cassandra Holt MD #2 [facility] [address] [place] [address] Consulting Physician Endocrinology 04/10/22 11/09/24 Carole Abel LSW [place] Research And Development Technician 06/19/23 08/26/23 documented as of this encounter
--- OUTSIDE RECORDS SUMMARY | 2024-12-31 18:17 | XMS_ITS | Encounter Summary ---
Author Organization [facility] Address [address] [place] [address] Phone Care Team Providers Care Lab Support Technician Name Role Phone rTavis Lr MD Primary Care Provider [phone] Carole Abel Unavailable Unavailab le Cassandra Holt MD Unavailable Carole Abel Unavailable Unavailab le Reason for Visit * Reason Comments Medication Refill Encounter Details Date Type Department Care Team (Late st Contact Info) Description 06/15/2021 Refill [facility] #2 [place] [id number] Travis Lr MD #[address] [address] Medication Refill Social History Tobacco Use Types [...] have Coronavirus / COVID-19? No / Unsure 06/18/2021 9:29 AM CDT documented as of this encounter Miscellaneous Notes * Telephone Encounter - Travis Lr MD - 06/15/2021 4:49 PM CDT Prescription approved. Please call in * Telephone Encounter - Amara Kilgore RN - 06/15/2021 1:25 PM CDT Medication failed the protocol, provider to review and approve the medication order if appropriate. Requested Prescriptions Pending Prescriptions Disp Refills atorvastatin (LIPITOR) 80 MG Tablet [Pharmacy Med Name: ATORVASTATIN 80MG TABLETS] 90 Tablet 2 Sig: TAKE 1 TABLET BY MOUTH EVERY DAY Hmg CoA Reductase Inhibitors Protocol Failed - 06/15/2021 1:25 PM Failed - Lipid panel in past 12 months LDL Date Value Ref Range Status 05/15/2020 81 0 - 130 mg/dL Final Passed - Visit with relevant provider in past 12 months or upcoming 90 days Recent Visits Date Type Provider Dept 03/13/21 Office Visit Travis Lr MD [facility] 01/11/21 Office Visit Travis Lr MD [facility] 12/04/20 Office Visit Travis Lr MD [facility] 08/16/20 Office Visit Travis Lr MD [facility] Showing recent visits within past 365 days and meeting all other requirements Future Appointments Date Type Provider Dept 06/18/21 Appointment Travis Lr MD [facility] Showing future appointments within next 90 days and meeting all other requirements documented in this encounter Plan of Treatment Not on file documented as of this encounter Visit Diagnoses Not on filedocumented in this encounter Additional Health Concerns Infection Onset Date Last Indicated Resolved Time COVID - 19 11/22/2021 11/22/2021 11/22/2021 3:58 PM ELEMENTARY PRINCIPAL Assessment Noted Time PHQ-9 Depression Total Score: 1 12/09/19 21 10:23 AM CDT documented as of this encounter Care Teams Lab Support Technician Relationship Specialty Start Date End Date Travis Lr MD #2 [facility] [address] [place] [address] PCP - General Family Medicine 08/08/15 09/30/24 Carole Abel LSW [place] Will Call Clerk 07/26/21 01/22/22 Cassandra Holt MD #2 [facility] [address] [place] [address] Consulting Physician Endocrinology 04/10/22 11/09/24 Carole Abel LSW [place] Will Call Clerk 06/19/23 08/26/23 documented as of this encounter
--- OUTSIDE RECORDS SUMMARY | 2024-12-31 18:17 | XMS_ITS | Encounter Summary ---
Author Organization [facility] Address [address] [place] [address] Phone Care Team Providers Care Account Resolution Analyst Name Role Phone Travis Lr MD Primary Care Provider Carole Abel Unavailable Unavailab le Cassandra Holt MD Unavailable Carole Abel Unavailable Unavailab le Reason for Visit * Reason Comments Medication Refill Encounter Details Date Type Department Care Team (Late st Contact Info) Description 08/06/2021 Refill [facility] #2 [place] [id number] Travis Lr MD #[address] [address] Medication Refill Social History Tobacco Use Types Packs/Day Years Used Date Smoking Tobacco: Every Day Cigarettes 0.5 48.5 Started: 06/20/1976 Smokeless Tobacco: Never Alcohol Use Standard Drinks/Week Comments No 0 (1 standard drink = 0.6 oz pur e alcohol) PHQ-2 Answer Date Recorded Total Score - Questions 1-9 1 12/2020 Education Answer Date Recorded What is the [...] have Coronavirus / COVID-19? No / Unsure 08/08/2021 1:03 PM [employer] documented as of this encounter Miscellaneous Notes * Telephone Encounter - Amara Kilgore RN - 08/07/2021 7:53 AM CST Images from the original note were not included. Name from pharmacy: ALPRAZOLAM 1MG TABLETS Will file in chart as: ALPRAZolam (XANAX) 1 MG Tablet The original prescription was reordered on 08/06/2021 by Travis Lr MD. [employer] documented in this encounter Plan of Treatment Not on file documented as of this encounter Visit Diagnoses Diagnosis Anxiety Anxiety state, unspecified documented in this encounter Additional Health Concerns Infection Onset Date Last Indicated Resolved Time COVID - 19 11/22/2021 11/22/2021 11/22/2021 3:58 PM [employer] Assessment Noted Time PHQ-9 Depression Total Score: 1 07/26/20 21 11:53 AM CDT documented as of this encounter Care Teams Account Resolution Analyst Relationship Specialty Start Date End Date Travis Lr MD #2 [facility] [address] [place] [address] PCP - General Family Medicine 08/08/15 09/30/24 Carole Abel LSW [place] Relay Checker 07/26/21 01/22/22 Csasandra Holt MD #2 [facility] [address] [place] [address] Consulting Physician Endocrinology 04/10/22 11/09/24 Carole Abel LSW [place] Relay Checker 06/19/23 08/26/23 documented as of this encounter
--- OUTSIDE RECORDS SUMMARY | 2024-12-31 18:17 | XMS_ITS | Encounter Summary ---
Author Organization [facility] Address [address] [place] [place] [address] Phone Care Team Providers Care Senior Svp Name Role Phone Travis Lr MD Primary Care Provider [phone] Carole Abel Unavailable Unavailab Carole Walsh Unavailable Unavailab le Cassandra Holt MD Unavailable Carole Abel Unavailable Unavailab le Reason for Visit * Reason Comments Medication Refill Encounter Details Date Type Department Care Team (Late st Contact Info) Description 06/18/2020 Refill [facility] - [place] #2 [place] [address] Cassandra Holt MD #[address] [address] Medication Refill Social History Tobacco Use Types Packs/Day Years Used Date Smoking Tobacco: Every Day Cigarettes Smokeless Tobacco: Never Alcohol Use Standard Drinks/Week Comments No 0 (1 standard drink = 0.6 oz pur e alcohol) PHQ-2 Answer Date Recorded Total Score - Questions 1-9 8 04/23 Sexually Active Control Partners Comments Not Currently Comments No Sex and Gender Information Value Date Recorded Sex Assigned at Not on file Legal Sex Female 11:03 PM CDT Gender Identity Not on file Sexual Orientation Not on file COVID-19 Exposure Response Date Recorded In the last month, have you been in contact with someone who was confirmed or suspected to have Coronavirus / COVID-19? No / Unsure 06/20/2020 1:16 PM CDT documented as of this encounter Miscellaneous Notes * Telephone Encounter - Mayi Foy, RN - 06/19/2020 8:17 AM CDT Refill request received. Order pended. Requested Prescriptions Pending Prescriptions Disp Refills ??? 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 Assessment Noted Time PHQ-9 Depression Total Score: 8 05/15/20 20 2:12 PM CDT documented as of this encounter Care Teams Senior Svp Relationship Specialty Start Date End Date Travis Lr MD #2 [facility] [address] [place] [address] PCP - General Family Medicine 08/08/15 09/30/24 Carole Abel LSW [place] Door To Door Fundraising Collector 12/08/20 03/18/21 Carole bAel LSW [place] Door To Door Fundraising Collector 07/26/21 01/22/22 Cassandra Holt MD #2 [facility] [address] [place] [address] Consulting Physician Endocrinology 04/10/22 11/09/24 Carole Abel LSW [place] Door To Door Fundraising Collector 06/19/23 08/26/23 documented as of this encounter
--- OUTSIDE RECORDS SUMMARY | 2024-12-31 18:17 | XMS_ITS | Encounter Summary ---
Author Organization [facility] Address [address] [place] [address] Phone Care Team Providers Care Electrophysiology Technologist Name Role Phone Travis Lr MD Primary Care Provider [phone] Carole Abel Unavailable Unavailab le Cassandra Holt MD Unavailable Carole Abel Unavailable Unavailab le Reason for Visit * Reason Comments Medication Refill Encounter Details Date Type Department Care Team (Late st Contact Info) Description 05/16/2021 Refill [facility] #2 [place] [id number] Travis rL MD #[address] [address] Medication Refill Social History Tobacco Use Types [...] have Coronavirus / COVID-19? No / Unsure 04/16/2021 6:51 PM CDT documented as of this encounter Miscellaneous Notes * Telephone Encounter - Travis Lr MD - 05/16/2021 11:18 AM CDT Prescription approved. Please call in * Telephone Encounter - Amara Kilgore RN - 05/16/2021 11:18 AM CDT Medication failed the protocol, provider to review and approve the medication order if appropriate. Requested Prescriptions Pending Prescriptions Disp Refills methocarbamol (ROBAXIN) 750 MG Tablet [Pharmacy Med Name: METHOCARBAMOL 750MG TABLETS] 30 Tablet 6 Sig: TAKE 1 TABLET BY MOUTH EVERY NIGHT NEEDED FOR MUSCLE SPASMS Not Delegated - Muscle Relaxants Protocol Failed - 05/16/2021 5:49 AM Failed - This refill cannot be [...] requirements Future Appointments Date Type Provider Dept 06/13/21 Appointment Travis Lr MD [facility] Showing future appointments within next 90 days and meeting all other requirements documented in this encounter Plan of Treatment Not on file documented as of this encounter Visit Diagnoses Not on filedocumented in this encounter Additional Health Concerns Infection Onset Date Last Indicated Resolved Time COVID - 19 11/22/2021 11/22/2021 11/22/2021 3:58 PM 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 Assessment Noted Time PHQ-9 Depression Total Score: 1 12/09/19 21 10:23 AM CDT documented as of this encounter Care Teams Electrophysiology Technologist Relationship Specialty Start Date End Date Travis Lr MD #2 [facility] [address] [place] [address] PCP - General Family Medicine 08/08/15 09/30/24 Carole Abel LSW [place] Electronics Warfare Technician 07/26/21 01/22/22 Cassandra Holt MD #2 [facility] [address] [place] [address] Consulting Physician Endocrinology 04/10/22 11/09/24 Carole Abel LSW [place] Electronics Warfare Technician 06/19/23 08/26/23 documented as of this encounter
--- OUTSIDE RECORDS SUMMARY | 2024-12-31 18:17 | XMS_ITS | Encounter Summary ---
Author Organization [facility] Address [address] [place] [address] Phone Care Team Providers Care Director Of Labor Relations Name Role Phone Travis Lr MD Primary Care Provider [phone] Carole Abel Unavailable Unavailab Carole Walsh Unavailable Unavailab Cassandra Vidal MD Unavailable Carole Abel Unavailable Unavailab le Reason for Visit * Reason Comments Medication Refill Encounter Details Date Type Department Care Team (Late st Contact Info) Description 07/02/2020 Refill [facility] [address] [place], [place] [address] Travis Lr MD #[address] [address] Medication Refill Social History Tobacco Use Types [...] Telephone Encounter - Travis Lr MD - 07/04/2020 7:00 AM CDT Prescription approved. Please call in * Telephone Encounter - Moraima Thomas RN - 07/03/2020 12:18 PM CDT Medication failed the protocol, provider to review and approve the medication order. Requested Prescriptions Pending Prescriptions Disp Refills citalopram (CeleXA) 40 MG Tablet [Pharmacy Med Name: CITALOPRAM 40MG TABLETS] 90 Tab 2 Sig: TAKE 1 TABLET BY MOUTH DAILY Not Delegated - Psychiatry: Antidepressants Failed - 07/02/2020 5:54 AM Failed - This refill cannot be delegated Passed - Valid encounter within last 12 months Past Office Visits Recent Outpatient Visits 1 month ago Essential hypertension [facility] - Travis Peoples MD 5 months ago Type 2 diabetes mellitus with other specified complication, with long-term current useof insulin ([facility]) [facility] Travis Reyes MD 9 months ago Type 2 diabetes mellitus with other specified complication, with long-term current useof insulin ([facility]) [facility] Travis Reyes MD 1 year ago Coronary artery disease involving [place] heart with angina pectoris, unspecified vessel or lesion type ([facility]) [facility] Travis Peoples MD 1 year ago Type 2 diabetes mellitus with other specified complication, with long-term current use of insulin ([facility]) [facility] Alfreda BenitoAlma Zhang APN, AGRICULTURAL COMMODITIES INSPECTOR Upcoming Appointments Future Appointments In 1 month Travis Lr MD [facility] Family Medicine SIGIFREDO Oliver In 1 month Cassandra Holt MD [facility] ARCHITECTURAL TECHNOLOGIST - Recent and Past Visits Recent Visits Date Type Provider Dept 05/15/20 Office Visit Travis Lr MD [facility] 01/27/20 Telemedicine Travis Lr MD [facility] 09/28/19 Office Visit Travis Lr MD [facility] 05/18/19 Office Visit Travis Lr MD [facility] Showing recent visits within past 460 days with a meds authorizing provider and meeting all other requirements Future Appointments Date Type Provider Dept 08/16/20 Appointment Travis Lr MD [facility] Showing future appointments within next 90 days with a meds authorizing provider and meeting all other requirements documented in this encounter Plan of Treatment Not on file documented as of this encounter Visit Diagnoses Diagnosis Anxiety Anxiety state, unspecified documented in this encounter Additional Health Concerns Infection Onset Date Last Indicated Resolved Time COVID - 19 11/22/2021 11/22/2021 11/22/2021 3:58 PM 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
--- OUTSIDE RECORDS SUMMARY | 2024-12-31 18:17 | XMS_ITS | Encounter Summary ---
Author Organization [facility] Address [address] [place] [place] [address] Phone Care Team Providers Care Recyclable Materials Collector Name Role Phone Travis Lr MD Primary Care Provider [phone] Carole Abel Unavailable Unavailab Carole Walsh Unavailable Unavailab Cassandra Vidal MD Unavailable Carole Abel Unavailable Unavailab le Reason for Visit * Reason Comments Medication Refill Encounter Details Date Type Department Care Team (Late st Contact Info) Description 07/13/2020 Refill [facility] #2 [place] [address] Travis Lr MD #[address] [address] Medication Refill Social History Tobacco Use Types [...] Telephone Encounter - Travis Lr MD - 07/13/2020 3:43 PM CDT Prescription pending signature * Telephone Encounter - Debra Noyola RN - 07/13/2020 11:36 AM CDT 4 weeks ago (06/14/2020) ALPRAZolam (XANAX) 1 MG Tablet Take 1 Tab by mouth 3 times daily as needed for Sleep. Dispense: 45 Tab? Refills: 0? Start: 06/14/2020? By: Travis Lr MD ? Encounter * Telephone Encounter - Cayla Cole - 07/13/2020 11:13 AM CDT Pt called to check status states she has very few tablets left only enough to last for today and iswanting to pick Rx up tomorrow. 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 Assessment Noted Time PHQ-9 Depression Total Score: 8 05/15/20 20 2:12 PM CDT documented as of this encounter Care Teams Recyclable Materials Collector Relationship Specialty Start Date End Date Travis Lr MD #2 [facility] [address] [place] [address] PCP - General Family Medicine 08/08/15 09/30/24 Carole Abel LSW [place] Line Assembly Utility Worker 12/08/20 03/18/21 Carole Abel LSW [place] Line Assembly Utility Worker 07/26/21 01/22/22 Cassandra Holt MD #2 [facility] [address] [place] [address] Consulting Physician Endocrinology 04/10/22 11/09/24 Carole Abel LSW [place] Line Assembly Utility Worker 06/19/23 08/26/23 documented as of this encounter
--- OUTSIDE RECORDS SUMMARY | 2024-12-31 18:17 | XMS_ITS | Encounter Summary ---
Author Organization [facility] Address [address] [place] [address] Phone Care Team Providers Care Mushroom Growth Media Mixer Name Role Phone Travis Lr MD Primary Care Provider [phone] Carole Abel Unavailable Unavailab Carole Walsh Unavailable Unavailab Cassandra Vidal MD Unavailable Carole Abel Unavailable Unavailab le Reason for Visit * Reason Onset Date Comments COVID-19 06/26/2020 preop testing Encounter Details Date Type Department Care Team (Late Contact Info) Description 06/26/2020 [facility] [address] [place] [address] Zeyad Montejo MD #[address] [address] COVID-19 (preop testing) Social History Tobacco Use Types Packs/Day Years [...] encounter Miscellaneous Notes * Telephone Encounter - Zeyad Montejo MD - 06/27/2020 8:52 AM CDT Thank you * Telephone Encounter - Jolynn Neves RN - 06/26/2020 2:04 PM CDT Pt did not show for scheduled covid preop testing. Called patient at 1400; pt stated she is sick with a high fever and congestion. She stated she will call Dr Montejo and reschedule procedure. 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 Assessment Noted Time PHQ-9 Depression Total Score: 8 05/15/20 20 2:12 PM CDT documented as of this encounter Care Teams Mushroom Growth Media Mixer Relationship Specialty Start Date End Date Travis Lr MD #2 [facility] [address] [place] [address] PCP - General Family Medicine 08/08/15 09/30/24 Carole Abel LSW [place] Big Data Engineer 12/08/20 03/18/21 Carole Abel LSW MD Big Data Engineer 07/26/21 01/22/22 Cassandra Holt MD #2 [facility] [address] [place] [address] Consulting Physician Endocrinology 04/10/22 11/09/24 Carole Abel LSW [place] Big Data Engineer 06/19/23 08/26/23 documented as of this encounter
[2024-12-31 18:35] LABS: Basophils Absolute Auto 0.03 K/mm3 (0.00-0.10); Basophils Percent Auto 0.4 % (0.0-1.0); Eosinophils Absolute Auto 0.15 K/mm3 (0.02-0.50); Hematocrit 37.8 % (35.0-49.0); Hemoglobin 10.4 g/dL (12.0-15.0); Immature Granulocyte Absolute 0.06 K/mm3 (0.00-0.00); Immature Granulocyte Percent A 0.8 % (0.0-0.0); Lymphocytes Absolute Auto 1.38 K/mm3 (1.10-4.50); Lymphocytes Percent Auto 18.4 % (18.0-42.0); Mean Corpuscular HGB Conc 27.5 g/dL (32-36); Mean Corpuscular Hemoglobin 30.5 pg (27.0-31.0); Mean Corpuscular Volume 110.9 fL (78.0-102.0); Mean Platelet Volume 10.2 fl (9.2-11.8); Monocytes Absolute Auto 0.72 K/mm3 (0.10-0.90); Monocytes Percent Auto 9.6 % (2.0-11.0); Neutrophils Absolute Auto 5.16 K/mm3 (1.70-7.20); Neutrophils Percent Auto 68.8 % (50.0-70.0); Platelet Count Result 227 K/mm3 (150-420); Red Blood Count 3.41 M/mm3 (4.20-5.40); Red Cell Distribution Width 13.2 % (11.6-14.4); White Blood Count 7.5 K/mm3 (4.8-10.8)
[2024-12-31 18:52] LABS: Alanine Aminotransferase 25 U/L (14-59); Albumin Level 2.9 g/dL (3.4-5.0); Alkaline Phosphatase 107 U/L (46-116); Aspartate Amino Transferase 37 U/L (15-37); Bilirubin,Total 0.5 mg/dL (0.00-1.00); Blood Urea Nitrogen 29 mg/dL (7-18); Calcium 8.4 mg/dL (8.5-10.1); Chloride 97 mmol/L (98-108); Estimated CRCL calculation 65 ml/min; Estimated Glomerular Filt Rate > 60; Glucose 124 mg/dL (70-99); Magnesium 1.9 mg/dL (1.8-2.4); Osmolality Calculated 302 mOsm/kg (285-295); Potassium 4.4 mmol/L (3.5-5.1); Sodium 143 mmol/L (136-145); Total Protein 7.1 g/dL (6.4-8.2)
--- NOTE | 2024-12-31 18:58 | PC.NURSE ---
patient report received from MAY Banuelos for continuation of care on night cleaner. patient in ED 2 with mechanical technologist at bedside for assist. RN monitoring.
[2024-12-31 19:02] LABS: Carbon Dioxide > 45 mmol/L (21-32)
--- NOTE | 2024-12-31 19:03 | ED_ITS ---
HPI - Female Genitourinary General Chief complaint: Urogenital-Female <Cal Valenzuela MD - Last Filed: 12/31/24 19:05> Stated complaint: confusion <Cal Valenzuela MD - Last Filed: 12/31/24 19:05> Time Seen by Provider: 12/31/24 18:15 <Cal Valenzuela MD - Last Filed: 12/31/24 19:05> Source: patient <Cal Valenzuela MD - Last Filed: 12/31/24 19:05> Mode of arrival: ambulatory <Cal Valenzuela MD - Last Filed: 12/31/24 19:05> Limitations: no limitations <Cal Valenzuela MD - Last Filed: 12/31/24 19:05> History of Present Illness HPI Narrative: Patient is a 64-year-old female with a significant past medical history that presents today for possible UTI but for confusion and altered mental status. Patient purely apparently for the last week has had altered mental status talk to us by the . He said that she has had altered mental status for a week but has urinary tract problems and has been having frequency urination and also painful urinations. Most likely has a UTI and this could be the cause of the confusion she has had these before the past and has had confusion with UTIs in the past before as well. She is A&O x2 but is clearly confused and altered. <Cal Valenzuela MD - Last Filed: 12/31/24 19:05> Patient is a 64-year-old female with a significant past medical history that presents today for possible UTI but for confusion and altered mental status. Patient purely apparently for the last week has had altered mental status talk to us by the . He said that she has had altered mental status for a week but has urinary tract problems and has been having frequency urination and also painful urinations. Most likely has a UTI and this could be the cause of the confusion she has had these before the past and has had confusion with UTIs in the past before as well. She is A&O x2 but is clearly confused and altered. Patient is telling me that patient been confused, talking nonsense for the last 6 days. History of diabetes hypertension hyperlipidemia COPD coronary stents, tobacco dependent, currently on aspirin once a day, oxygen 3 and half L nasal cannula, patient been increasing her oxygen lately because of her confusion up to 5-6 L. Has been reported that patient lately been having decreased appetite and leaning on the furniture to navigate her way to the bathroom. Does not use a walker. Is telling me that patient is do not resuscitate and he signed the code status of do not intubate. <Johnny Sagastume MD - Last Filed: 12/31/24 22:47> MD elicited complaint: dysuria, UTI and other ( Altered mental status) <Cal Valenzuela MD - Last Filed: 12/31/24 19:05> Related Data Home medications: Home Medications ?Medication ?Instructions ?Recorded ?Confirmed ?Last Taken ?Type atorvastatin 20 mg tablet 20 mg PO DAILY 12/31/24 Unknown History buspirone 5 mg tablet 5 mg PO BID 12/31/24 Unknown History carvedilol 6.25 mg tablet 6.25 mg PO Q12H 12/31/24 Unknown History citalopram 40 mg tablet 40 mg PO DAILY 12/31/24 Unknown History gabapentin 300 mg capsule 300 mg PO TID 12/31/24 Unknown History hydrocodone 10 mg-acetaminophen 1 tablet PO QID 12/31/24 Unknown History 325 mg tablet hydroxyzine pamoate 50 mg capsule 50 mg PO TID PRN anxiety 12/31/24 Unknown History insulin NPH isoph U-100 human 100 24 unit subcut QAM 12/31/24 Unknown History unit/mL (3 mL) subcutaneous pen (Novolin N FlexPen) insulin aspart U-100 100 unit/mL 15 unit subcut QAM 12/31/24 Unknown History (3 mL) subcutaneous pen (Novolog FlexPen U-100 Insulin aspart) tizanidine 2 mg tablet 2 mg PO TID 12/31/24 Unknown History <Cal Valenzuela MD - Last Filed: 12/31/24 19:05> Allergies/Adverse reactions: Allergies Allergy/AdvReac Type Severity Reaction Status Date / Time Sulfa (Sulfonamide Allergy Other Verified 12/31/24 18:19 Antibiotics) <Cal Valenzuela MD - Last Filed: 12/31/24 19:05> PMFSH Past Medical History Medical History: Medical History (Updated 12/31/24 @ 20:43 by Johnny Sagastume MD) Chronic low back pain COPD (chronic obstructive pulmonary disease) Panic attacks Depression Anxiety <Cal Valenzuela MD - Last Filed: 12/31/24 19:05> Social History Social History: Social History (Updated 05/29/23 @ 05:35 by Supa Polo MD) Social History: smoker Smoking packs per day: 0.5 Smoking cigarettes per day: 10.0 Years smoked: 50 Smoking pack-years: 25.00 Smoking status: Current every day smoker Tobacco type: cigarettes <Cal Valenzuela MD - Last Filed: 12/31/24 19:05> Exam 2 Narrative: General appearance: Well-developed, well-nourished , respond to painful stimulation by opening eyes, unable to answer questions Skin: Normal color chronic stasis dermatitis of the lower extremity bilaterally with superimposed cellulitis is a possibility Head: Normocephalic, nontraumatic Eyes: Clear conjunctiva ENT: Oropharynx normal, ears normal, nose normal Neck: Supple, nontender Chest and respiratory: Airway patent, no respiratory distress, no accessory muscle use Heart: Regular rate/rhythm Abdomen: Soft, nontender, no organomegaly, quiet bowel sounds Vascular: Normal peripheral pulses, normal capillary refill. Neurologic: opening eyes with painful stimulation <Johnny Sagastume MD - Last Filed: 12/31/24 22:47> Course Consultations Consultation #1: DR WILLARD, ICU PHYSICIAN AT [facility] WHO ACCEPTED PATIENT TRANSFER <Johnny Sagastume MD - Last Filed: 12/31/24 22:47> Date: 12/31/24 <Johnny Sagastume MD - Last Filed: 12/31/24 22:47> Time: 21:16 <Johnny Sagastume MD - Last Filed: 12/31/24 22:47> Vital Signs Vital signs: Vital Signs Temperature 36.4 C 12/31/24 18:24 Pulse Rate 85 12/31/24 18:24 Respiratory Rate 20 12/31/24 18:24 Blood Pressure 152/84 H 12/31/24 18:24 Pulse Oximetry 94 12/31/24 18:24 Oxygen Delivery Nasal Cannula 12/31/24 18:24 Oxygen Flow Rate 6 12/31/24 18:24 Temperature 36.0 C L 12/31/24 20:01 Pulse Rate 73 12/31/24 21:35 Respiratory Rate 26 H 12/31/24 21:35 Blood Pressure 133/57 L 12/31/24 21:01 Pulse Oximetry 91 12/31/24 21:35 Oxygen Delivery BiPAP 12/31/24 21:35 Oxygen Flow Rate 3.5 12/31/24 21:01 <Cal Valenzuela MD - Last Filed: 12/31/24 19:05> Vital Signs Temperature 36.4 C 12/31/24 18:24 Pulse Rate 85 12/31/24 18:24 Respiratory Rate 20 12/31/24 18:24 Blood Pressure 152/84 H 12/31/24 18:24 Pulse Oximetry 94 12/31/24 18:24 Oxygen Delivery Nasal Cannula 12/31/24 18:24 Oxygen Flow Rate 6 12/31/24 18:24 Temperature 36.0 C L 12/31/24 20:01 Pulse Rate 73 12/31/24 21:35 Respiratory Rate 26 H 12/31/24 21:35 Blood Pressure 133/57 L 12/31/24 21:01 Pulse Oximetry 91 12/31/24 21:35 Oxygen Delivery BiPAP 12/31/24 21:35 Oxygen Flow Rate 3.5 12/31/24 21:01 <Johnny Sagastume MD - Last Filed: 12/31/24 22:47> MDM - Female Genitourinary MDM Narrative Medical decision making narrative: BiPAP was placed on the patient, /, respiratory rate 24, oxygen 45%, patient looks comfortable and that sitting,. Patient was accepted for transferred to [facility]. Antibiotic started, vancomycin, Levaquin and Zosyn for pneumonia and diabetic cellulitis. <Johnny Sagastume MD - Last Filed: 12/31/24 22:47> Lab Data Result diagrams: 12/31/24 18:32 12/31/24 18:32 <Cal Valenzuela MD - Last Filed: 12/31/24 19:05> Labs: Lab Results 12/31/24 12/31/24 12/31/24 Range/Units 18:32 19:00 19:54 WBC 7.5 (4.8-10.8) K/mm3 RBC 3.41 L (4.20-5.40) M/mm3 Hgb 10.4 L (12.0-15.0) g/dL Hct 37.8 (35.0-49.0) % MCV 110.9 H (78.0-102.0) fL MCH 30.5 (27.0-31.0) pg MCHC 27.5 L (32-36) g/dL RDW 13.2 (11.6-14.4) % Plt Count 227 (150-420) K/mm3 MPV 10.2 (9.2-11.8) fl Immature Gran % (Auto) 0.8 H (0.0-0.0) % Neut % (Auto) 68.8 (50.0-70.0) % Lymph % (Auto) 18.4 (18.0-42.0) % [place] % (Auto) 9.6 (2.0-11.0) % Eos % (Auto) 2.0 (1.0-6.0) % Baso % (Auto) 0.4 (0.0-1.0) % Lymph # (Auto) 1.38 (1.10-4.50) K/mm3 [place] # (Auto) 0.72 (0.10-0.90) K/mm3 Eos # (Auto) 0.15 (0.02-0.50) K/mm3 Baso # (Auto) 0.03 (0.00-0.10) K/mm3 Abs Immat Gran (auto) 0.06 H (0.00-0.00) K/mm3 Absolute Neuts (auto) 5.16 (1.70-7.20) K/mm3 Absolute Nucleated RBC 0.00 (0.00-0.00) K/mm3 Nucleated RBC % 0.0 (0-0.0) % PT 11.4 (9.50-12.1) Seconds INR 1.0 APTT 26.1 (23.9-30.70) Sec Sodium 143 (136-145) mmol/L Potassium 4.4 (3.5-5.1) mmol/L Chloride 97 L (98-108) mmol/L Carbon Dioxide > 45 H (21-32) mmol/L Anion Gap (4-12) mmol/L BUN 29 H (7-18) mg/dL Creatinine 0.89 (0.55-1.02) mg/dL Estim Creat Clear Calc 65 ml/min Estimated GFR > 60 (59 - ) Glucose 124 H (70-99) mg/dL Calculated Osmolality 302 H (285-295) mOsm/kg Lactic Acid (0.4-2.0) mmol/L Calcium 8.4 L (8.5-10.1) mg/dL Magnesium 1.9 (1.8-2.4) mg/dL Total Bilirubin 0.5 (0.00-1.00) mg/dL AST 37 (15-37) U/L ALT 25 (14-59) U/L Alkaline Phosphatase 107 (46-116) U/L Total Creatine Kinase 665 H (26-192) U/L Troponin I 29.1 (0.00-60.4) ng/L C-Reactive Protein (0.0-0.9) mg/dL Total Protein 7.1 (6.4-8.2) g/dL Albumin 2.9 L (3.4-5.0) g/dL TSH 3.90 H (0.36-3.74) uIU/mL Urine Color Yellow (Yellow) Urine Appearance Clear (Clear) Urine pH 6.0 (5.0-8.0) Ur Specific [place] 1.020 (1.010-1.020) Urine Protein 1+ H (Negative) Urine Glucose (UA) Negative (Negative) Urine Ketones Trace H (Negative) Ur Blood (Man) 3+ H (Negative) Urine Nitrate Negative (Negative) Urine Bilirubin 1+ H (Negative) Urine Urobilinogen 1.0 (0.2-1.0) mg/dL Ur Leukocyte Esterase Trace H (Negative) Urine RBC 21-50 H (0-2) /hpf Urine WBC 7-9 H (0-3) /hpf Ur Squamous Epith Cells Few (Few) /hpf Urine Bacteria 1+ H (None) /hpf Nasal MRSA (PCR) Urine Opiates Screen Positive A (Negative) Urine Methadone Screen Negative (Negative) Ur Barbiturates Screen Negative (Negative) Ur Phencyclidine Scrn Negative (Negative) Ur Amphetamine Screen Negative (Negative) U Benzodiazepines Scrn Negative (Negative) Urine Cocaine Screen Negative (Negative) U Cannabinoids Screen Negative (Negative) 04/11/25 04/11/25 Range/Units 20:44 21:51 WBC (4.8-10.8) K/mm3 RBC (4.20-5.40) M/mm3 Hgb (12.0-15.0) g/dL Hct (35.0-49.0) % MCV (78.0-102.0) fL MCH (27.0-31.0) pg MCHC (32-36) g/dL RDW (11.6-14.4) % Plt Count (150-420) K/mm3 MPV (9.2-11.8) fl Immature Gran % (Auto) (0.0-0.0) % Neut % (Auto) (50.0-70.0) % Lymph % (Auto) (18.0-42.0) % Weak[place] % (Auto) (2.0-11.0) % Eos % (Auto) (1.0-6.0) % Baso % (Auto) (0.0-1.0) % Lymph # (Auto) (1.10-4.50) K/mm3 [place] # (Auto) (0.10-0.90) K/mm3 Eos # (Auto) (0.02-0.50) K/mm3 Baso # (Auto) (0.00-0.10) K/mm3 Abs Immat Gran (auto) (0.00-0.00) K/mm3 Absolute Neuts (auto) (1.70-7.20) K/mm3 Absolute Nucleated RBC (0.00-0.00) K/mm3 Nucleated RBC % (0-0.0) % PT (9.50-12.1) Seconds INR APTT (23.9-30.70) Sec Sodium (136-145) mmol/L Potassium (3.5-5.1) mmol/L Chloride (98-108) mmol/L Carbon Dioxide (21-32) mmol/L Anion Gap (4-12) mmol/L BUN (7-18) mg/dL Creatinine (0.55-1.02) mg/dL Estim Creat Clear Calc ml/min Estimated GFR (59 - ) Glucose (70-99) mg/dL Calculated Osmolality (285-295) mOsm/kg Lactic Acid 1.6 (0.4-2.0) mmol/L Calcium (8.5-10.1) mg/dL Magnesium (1.8-2.4) mg/dL Total Bilirubin (0.00-1.00) mg/dL AST (15-37) U/L ALT (14-59) U/L Alkaline Phosphatase (46-116) U/L Total Creatine Kinase (26-192) U/L Troponin I (0.00-60.4) ng/L C-Reactive Protein 2.6 H (0.0-0.9) mg/dL Total Protein (6.4-8.2) g/dL Albumin (3.4-5.0) g/dL TSH (0.36-3.74) uIU/mL Urine Color (Yellow) Urine Appearance (Clear) Urine pH (5.0-8.0) Ur Specific [place] (1.010-1.020) Urine Protein (Negative) Urine Glucose (UA) (Negative) Urine Ketones (Negative) Ur Blood (Man) (Negative) Urine Nitrate (Negative) Urine Bilirubin (Negative) Urine Urobilinogen (0.2-1.0) mg/dL Ur Leukocyte Esterase (Negative) Urine RBC (0-2) /hpf Urine WBC (0-3) /hpf Ur Squamous Epith Cells (Few) /hpf Urine Bacteria (None) /hpf Nasal MRSA (PCR) Pending Urine Opiates Screen (Negative) Urine Methadone Screen (Negative) Ur Barbiturates Screen (Negative) Ur Phencyclidine Scrn (Negative) Ur Amphetamine Screen (Negative) U Benzodiazepines Scrn (Negative) Urine Cocaine Screen (Negative) U Cannabinoids Screen (Negative) <Cal Valenzuela MD - Last Filed: 12/31/24 19:05> Lab Results 12/31/24 12/31/24 12/31/24 Range/Units 18:32 19:00 19:54 WBC 7.5 (4.8-10.8) K/mm3 RBC 3.41 L (4.20-5.40) M/mm3 Hgb 10.4 L (12.0-15.0) g/dL Hct 37.8 (35.0-49.0) % MCV 110.9 H (78.0-102.0) fL MCH 30.5 (27.0-31.0) pg MCHC 27.5 L (32-36) g/dL RDW 13.2 (11.6-14.4) % Plt Count 227 (150-420) K/mm3 MPV 10.2 (9.2-11.8) fl Immature Gran % (Auto) 0.8 H (0.0-0.0) % Neut % (Auto) 68.8 (50.0-70.0) % Lymph % (Auto) 18.4 (18.0-42.0) % Weak[place] % (Auto) 9.6 (2.0-11.0) % Eos % (Auto) 2.0 (1.0-6.0) % Baso % (Auto) 0.4 (0.0-1.0) % Lymph # (Auto) 1.38 (1.10-4.50) K/mm3 [place] # (Auto) 0.72 (0.10-0.90) K/mm3 Eos # (Auto) 0.15 (0.02-0.50) K/mm3 Baso # (Auto) 0.03 (0.00-0.10) K/mm3 Abs Immat Gran (auto) 0.06 H (0.00-0.00) K/mm3 Absolute Neuts (auto) 5.16 (1.70-7.20) K/mm3 Absolute Nucleated RBC 0.00 (0.00-0.00) K/mm3 Nucleated RBC % 0.0 (0-0.0) % PT 11.4 (9.50-12.1) Seconds INR 1.0 APTT 26.1 (23.9-30.70) Sec Sodium 143 (136-145) mmol/L Potassium 4.4 (3.5-5.1) mmol/L Chloride 97 L (98-108) mmol/L Carbon Dioxide > 45 H (21-32) mmol/L Anion Gap (4-12) mmol/L BUN 29 H (7-18) mg/dL Creatinine 0.89 (0.55-1.02) mg/dL Estim Creat Clear Calc 65 ml/min Estimated GFR > 60 (59 - ) Glucose 124 H (70-99) mg/dL Calculated Osmolality 302 H (285-295) mOsm/kg Lactic Acid (0.4-2.0) mmol/L Calcium 8.4 L (8.5-10.1) mg/dL Magnesium 1.9 (1.8-2.4) mg/dL Total Bilirubin 0.5 (0.00-1.00) mg/dL AST 37 (15-37) U/L ALT 25 (14-59) U/L Alkaline Phosphatase 107 (46-116) U/L Total Creatine Kinase 665 H (26-192) U/L Troponin I 29.1 (0.00-60.4) ng/L C-Reactive Protein (0.0-0.9) mg/dL Total Protein 7.1 (6.4-8.2) g/dL Albumin 2.9 L (3.4-5.0) g/dL TSH 3.90 H (0.36-3.74) uIU/mL Urine Color Yellow (Yellow) Urine Appearance Clear (Clear) Urine pH 6.0 (5.0-8.0) Ur Specific [place] 1.020 (1.010-1.020) Urine Protein 1+ H (Negative) Urine Glucose (UA) Negative (Negative) Urine Ketones Trace H (Negative) Ur Blood (Man) 3+ H (Negative) Urine Nitrate Negative (Negative) Urine Bilirubin 1+ H (Negative) Urine Urobilinogen 1.0 (0.2-1.0) mg/dL Ur Leukocyte Esterase Trace H (Negative) Urine RBC 21-50 H (0-2) /hpf Urine WBC 7-9 H (0-3) /hpf Ur Squamous Epith Cells Few (Few) /hpf Urine Bacteria 1+ H (None) /hpf Nasal MRSA (PCR) Urine Opiates Screen Positive A (Negative) Urine Methadone Screen Negative (Negative) Ur Barbiturates Screen Negative (Negative) Ur Phencyclidine Scrn Negative (Negative) Ur Amphetamine Screen Negative (Negative) U Benzodiazepines Scrn Negative (Negative) Urine Cocaine Screen Negative (Negative) U Cannabinoids Screen Negative (Negative) 12/31/24 12/31/24 Range/Units 20:44 21:51 WBC (4.8-10.8) K/mm3 RBC (4.20-5.40) M/mm3 Hgb (12.0-15.0) g/dL Hct (35.0-49.0) % MCV (78.0-102.0) fL MCH (27.0-31.0) pg MCHC (32-36) g/dL RDW (11.6-14.4) % Plt Count (150-420) K/mm3 MPV (9.2-11.8) fl Immature Gran % (Auto) (0.0-0.0) % Neut % (Auto) (50.0-70.0) % Lymph % (Auto) (18.0-42.0) % [place] % (Auto) (2.0-11.0) % Eos % (Auto) (1.0-6.0) % Baso % (Auto) (0.0-1.0) % Lymph # (Auto) (1.10-4.50) K/mm3 [place] # (Auto) (0.10-0.90) K/mm3 Eos # (Auto) (0.02-0.50) K/mm3 Baso # (Auto) (0.00-0.10) K/mm3 Abs Immat Gran (auto) (0.00-0.00) K/mm3 Absolute Neuts (auto) (1.70-7.20) K/mm3 Absolute Nucleated RBC (0.00-0.00) K/mm3 Nucleated RBC % (0-0.0) % PT (9.50-12.1) Seconds INR APTT (23.9-30.70) Sec Sodium (136-145) mmol/L Potassium (3.5-5.1) mmol/L Chloride (98-108) mmol/L Carbon Dioxide (21-32) mmol/L Anion Gap (4-12) mmol/L BUN (7-18) mg/dL Creatinine (0.55-1.02) mg/dL Estim Creat Clear Calc ml/min Estimated GFR (59 - ) Glucose (70-99) mg/dL Calculated Osmolality (285-295) mOsm/kg Lactic Acid 1.6 (0.4-2.0) mmol/L Calcium (8.5-10.1) mg/dL Magnesium (1.8-2.4) mg/dL Total Bilirubin (0.00-1.00) mg/dL AST (15-37) U/L ALT (14-59) U/L Alkaline Phosphatase (46-116) U/L Total Creatine Kinase (26-192) U/L Troponin I (0.00-60.4) ng/L C-Reactive Protein 2.6 H (0.0-0.9) mg/dL Total Protein (6.4-8.2) g/dL Albumin (3.4-5.0) g/dL TSH (0.36-3.74) uIU/mL Urine Color (Yellow) Urine Appearance (Clear) Urine pH (5.0-8.0) Ur Specific [place] (1.010-1.020) Urine Protein (Negative) Urine Glucose (UA) (Negative) Urine Ketones (Negative) Ur Blood (Man) (Negative) Urine Nitrate (Negative) Urine Bilirubin (Negative) Urine Urobilinogen (0.2-1.0) mg/dL Ur Leukocyte Esterase (Negative) Urine RBC (0-2) /hpf Urine WBC (0-3) /hpf Ur Squamous Epith Cells (Few) /hpf Urine Bacteria (None) /hpf Nasal MRSA (PCR) Pending Urine Opiates Screen (Negative) Urine Methadone Screen (Negative) Ur Barbiturates Screen (Negative) Ur Phencyclidine Scrn (Negative) Ur Amphetamine Screen (Negative) U Benzodiazepines Scrn (Negative) Urine Cocaine Screen (Negative) U Cannabinoids Screen (Negative) <Johnny Sagastume MD - Last Filed: 12/31/24 22:47> ABG Data ABG results: 12/31/24 19:54 Puncture Site Right radial ABG pH 7.21 L ABG pCO2 138.6 H* ABG pO2 106.7 H ABG HCO3 54.4 H ABG O2 Saturation 97.3 H ABG Base Excess 21.2 H Oxyhemoglobin 93.9 L O2 Delivery Device Nasal cannula O2 Liters/Min 6.0 <Cal Valenzuela MD - Last Filed: 12/31/24 19:05> 12/31/24 19:54 Puncture Site Right radial ABG pH 7.21 L ABG pCO2 138.6 H* ABG pO2 106.7 H ABG HCO3 54.4 H ABG O2 Saturation 97.3 H ABG Base Excess 21.2 H Oxyhemoglobin 93.9 L O2 Delivery Device Nasal cannula O2 Liters/Min 6.0 <Johnny Sagastume MD - Last Filed: 12/31/24 22:47> Imaging Data Radiologist's impression: Impressions Chest X-Ray 12/31/24 19:56 IMPRESSION: Cardiomegaly with cardiac decompensation and pulmonary edema. Bilateral pneumonitis with left lower lobe pneumonia is highly suggestive. <Johnny Sagastume MD - Last Filed: 12/31/24 22:47> Critical Care Time Critical Care Time Critical Care Time: Yes <Johnny Sagastume MD - Last Filed: 12/31/24 22:47> Total Critical Care Time: 45 <Johnny Sagastume MD - Last Filed: 12/31/24 22:47> Discharge Plan Discharge Clinical Impression: Carbon dioxide narcosis, COPD (chronic obstructive pulmonary disease), Hypoventilation associated with obesity syndrome, Cellulitis of left lower extremity <Cal Valenzuela MD - Last Filed: 12/31/24 19:05> Patient Disposition: Acute Care Hospital <Cal Valenzuela MD - Last Filed: 12/31/24 19:05> Condition: Guarded Prognosis <Cal Valenzuela MD - Last Filed: 12/31/24 19:05> Additional Instructions: Transferred to [facility] <Cal Valenzuela MD - Last Filed: 12/31/24 19:05> Patient Language: Upper Sorbian <Cal Valenzuela MD - Last Filed: 12/31/24 19:05> Prescriptions: No Action gabapentin 300 mg capsule 300 mg PO TID Novolin N FlexPen 100 unit/mL (3 mL) insulin pen 24 unit SUBCUT QAM Patient Comments: 24 units am and 20 units hs insulin aspart U-100 [Novolog FlexPen U-100 Insulin] 100 unit/mL (3 mL) insulin pen 15 unit SUBCUT QAM hydrocodone-acetaminophen 10-325 mg tablet 1 tablet PO QID citalopram 40 mg tablet 40 mg PO DAILY hydroxyzine pamoate 50 mg capsule 50 mg PO TID PRN (Reason: anxiety) tizanidine 2 mg tablet 2 mg PO TID buspirone 5 mg tablet 5 mg PO BID carvedilol 6.25 mg tablet 6.25 mg PO Q12H atorvastatin 20 mg tablet 20 mg PO DAILY <Cal Valenzuela MD - Last Filed: 12/31/24 19:05> Follow-up/Referrals: Shobha,GRICELDA Borjas [Primary Care Provider] - <Cal Valenzuela MD - Last Filed: 12/31/24 19:05>
[2024-12-31 19:07] LABS: Add Urine Microscopic? YES; Appearance Urine Clear (Clear); Bilirubin Urine 1+ (Negative); Blood Urine 3+ (Negative); Color Urine Yellow (Yellow); Glucose Urine UA Negative (Negative); Ketones Urine Trace (Negative); Leukocyte Esterase Ur Trace (Negative); Nitrate Urine Negative (Negative); Protein Urine 1+ (Negative)
[2024-12-31 19:12] LABS: Bacteria Urine 1+ /hpf; RBC Urine 21-50 /hpf (0-2); Squamous Epithelial Cell Urine Few /hpf (Few)
--- NOTE | 2024-12-31 19:36 | ECG_ITS ---
Test Date: 2024-12-31 19:51:40 Measurements Intervals Girdler Rate: 80 P: 78 NH: 129 QRS: -27 QRSD: 99 T: 85 QT: 391 QTc: 451 Interpretive Statements SINUS RHYTHM ANTERIOR INFARCT, AGE INDETERMINATE BORDERLINE ST-T WAVE ABNORMALITY- HIGH LATERAL LEADS ABNORMAL ECG No previous ECG available for comparison Electronically Signed On 01-01-2025 06:51:16 CDT by Brian Santiago D.O.
[2024-12-31 19:55] LABS: Base Excess ABG 21.2 mmol/L (0-2); HCO3 ABG 54.4 mmol/L (23-29); Oxygen Saturation ABG 97.3 % (95-97); Oxyhemoglobin 93.9 % (94-100); PO2 ABG 106.7 mmHg (80-90); pH ABG 7.21 (7.35-7.45)
[2024-12-31 19:59] LABS: Device NASAL CANNULA; Modified Allen's Test Pass; PCO2 ABG 138.6 mmHg (35-45); Site Drawn RIGHT RADIAL
[2024-12-31] MEDS: SODIUM CHLORIDE 0.9% IV 1,000 ML 999 ML IV CONT (20:07)
--- NOTE | 2024-12-31 20:15 | PC.NURSE ---
patient asleep during RN entry to room, difficult to arouse however did open eyes to verbal stimuli when her spouse began speaking. BLE red, warm and edemaous. IVF started per order, see MAR. Dr. Sagastume to bedside at this time, speaking with spouse and assessing patient.
[2024-12-31 20:16] LABS: Amphetamine Screen Urine Negative (Negative); Barbiturate Screen Urine Negative (Negative); Benzodiazepines Screen Urine Negative (Negative); Cocaine Screen Urine Negative (Negative); Methadone Screen Urine Negative (Negative); Opiate Screen Urine Positive (Negative); Phencyclidine Screen Urine Negative (Negative)
[2024-12-31 20:16] LABS: Partial Thromboplastin Time 26.1 Sec (23.9-30.70); Prothrombin Time 11.4 Seconds (9.50-12.1)
--- NOTE | 2024-12-31 20:21 | PC.NURSE ---
oxygen titrated to 3.5 per ERP verbal request. RN monitoring. ERP remains at patient bedside. RT notified patient will need bipap.
--- NOTE | 2024-12-31 20:22 | PC.NURSE ---
2021hrs Called respiratory, Lynn William, to put pt on Bi-pap. Estimates arrival in approx 30mins.
[2024-12-31 20:24] LABS: Cannabinoid Screen Urine Negative (Negative)
[2024-12-31 20:29] LABS: Creatine Kinase 665 U/L (26-192); Troponin I 29.1 ng/L (0.00-60.4)
[2024-12-31 21:03] LABS: CRP 2.6 mg/dL (0.0-0.9)
[2024-12-31 21:06] LABS: Lactic Acid Reflex 1.6 mmol/L (0.4-2.0)
--- NOTE | 2024-12-31 21:19 | PC.NURSE ---
RT to bedside, patient placed on bipap per RT, tolerating mask, remains sleepy. patient placed on systems spec, changed into gown. diffuse excoriation noted to bilat under side of breast and upper abdomen.
[2024-12-31] MEDS: PIPERACILLN/TAZ 3.375GM/NS50ML 3.375 GM/50 ML BAG IVPB (22:10)
[2024-12-31] MEDS: FUROSEMIDE INJ 40 MG/4 ML VIAL IV PUSH (22:30)
[2024-12-31] MEDS: IPRATROPIUM 0.5 MG/ALBUTEROL SULFATE 2.5 MG AMPUL.NEB 3 ML INHALATION (22:44)
[2024-12-31] MEDS: levoFLOXacin 750 MG/D5W 150 ML 750 MG/150 ML BAG 100 MG IVPB (23:00)
[2024-12-31 23:09] LABS: MRSA (PCR) NOT DETECTED (NOT DETECTE)
[2024-12-31 23:17] LABS: Base Excess ABG 27.1 mmol/L (0-2); HCO3 ABG 60.3 mmol/L (23-29); Oxygen Saturation ABG 90.1 % (95-97); Oxyhemoglobin 87.3 % (94-100); PO2 ABG 63.9 mmHg (80-90); pH ABG 7.27 (7.35-7.45)
[2024-12-31 23:18] LABS: Device BIPAP; Modified Allen's Test Pass; Site Drawn LEFT RADIAL
[2024-12-31 23:19] LABS: Expiratory Pressure 6 cmH2O; Inspiratory Pressure 12 cmH2O
--- NOTE | 2024-12-31 23:45 | PC.NURSE ---
patient spouse Cj Logan phone [phone]. RN attempted to phone spouse however no answer. patient spouse stated phone has not been keeping a charge for very long, stated if phone isn't working he will call when he can to follow up or borrow a phone whenever he is able.
[2025-01-01] VITALS (9 sets, daily range): BP systolic 114–119; BP diastolic 50–66; PULSE 81–87; RESP 18–26; O2SAT 97–100
[2025-01-01 00:25] LABS: Glucose Point of Care 81 mg/dl (65-105)
--- NOTE | 2025-01-02 12:09 | PC.NURSE ---
Preliminary blood culture report; no growth to date
== END 2025-01-01 01:15 | disposition short-term general hospital (02) ==
PROVIDERS: Family Medicine; Emergency Provider Emergency Medicine; PCP Physician Assistant
DX: J44.9 Chronic obstructive pulmonary disease, unspecified (principal); R06.89 Other abnormalities of breathing; E66.2 Morbid (severe) obesity with alveolar hypoventilation; L03.116 Cellulitis of left lower limb; I10 Essential (primary) hypertension; E11.9 Type 2 diabetes mellitus without complications; E78.5 Hyperlipidemia, unspecified; F17.210 Nicotine dependence, cigarettes, uncomplicated; Z79.82 Long term (current) use of aspirin; Z99.81 Dependence on supplemental oxygen; Z79.4 Long term (current) use of insulin; Z79.899 Other long term (current) drug therapy
CPT/HCPCS: 36415; 36600; 71045; 80053; 80307; 81001; 82550; 82805; 82948; 83605; 83735; 84443; 84484; 85025; 85610; 85730; 86140; 87040; 87641; 93005; 94640; 96361; 96365; 96366; 96367; 96368; 96375; 99285; J1938; J1956; J2543; J7030

== ENCOUNTER 2025-01-19 22:29 | Inpatient (IN) | payer BC, SELFPAY ==
--- NOTE | ~2025-01-19 | CT_ITS ---
Non-contrast Head CT History: Cardiac arrest Technique: Axial non-contrast imaging of the brain was performed. Dose reduction technique was used on this scan by utilizing automated exposure control and iterative reconstruction technique. The dose -length product (DLP) was 681.00 mGy-cm. Findings: There is 3.3 x 3.1 cm round acute parenchymal hemorrhage/hematoma in the right frontal lobe (axial image 37). There are multiple scattered areas of acute subarachnoid hemorrhage bilaterally. T here is acute intraventricular hemorrhage at the temporal horns of the bilateral lateral ventricles. Possible small subdural hemorrhage adjacent to the parenchymal hemorrhage in the right frontal lobe. Probable bilateral basal ganglia acute hemorrhages are present. The ventricles and subarachnoid space s are normal in size. The calvarium appears normal. The visualized paranasal sinuses and mastoid ai r cells are clear. Impression: 3.3 x 3.1 cm acute parenchymal hemorrhage/hematoma in the right frontal lobe. Probable acute bilatera l basal ganglia hemorrhages. Multiple areas of scattered bilateral acute subarachnoid hemorrhage. Acute intraventricular hemorrhage in the temporal horns of bilateral lateral ventricles. Questionable small subdural hemorrhage adjacent to the aforementioned parenchymal hemorrhage in the r ight frontal lobe. No midline shift. Reviewed, dictated and finalized at location M. Impression: 3.3 x 3.1 cm acute parenchymal hemorrhage/hematoma in the right frontal lobe. P robable acute bilateral basal ganglia hemorrhages. Multiple areas of scattered bilateral acute subarachnoid hemorrhage. Acute intraventricular hemorrhage in the temporal horns of bilateral lateral ve ntricles. Questionable small subdural hemorrhage adjacent to the aforementioned parenchym al hemorrhage in the right frontal lobe. No midline shift.
--- NOTE | ~2025-01-19 | XR_ITS ---
Portable chest x-ray Comparison: 12/31/2024 Clinical History: Tube placement Findings: Endotracheal tube and NG tube are in satisfactory positions. Probable mild haziness, sugge stive of mild pulmonary edema. Cardiomediastinal silhouette is stable. Bones and soft tissues are un remarkable. Impression: Support tubes, as above. Probable mild pulmonary edema pattern. Correlate clinically for pneumonia. Reviewed, dictated and finalized at [facility]. Impression: Support tubes, as above. Probable mild pulmonary edema pattern. Correlate clinically for pneumonia.
--- NOTE | ~2025-01-19 | XR_ITS ---
Upright portable view of the abdomen Clinical history: NG tube placement Findings: NG tube side-port is just above the GE junction. Bowel gas pattern is nonspecific. No evide nce for obstruction or free air. No abnormal mass lesion or calcification is seen. Osseous structures are intact. Impression: NG tube side port just above the GE junction. Further advancement by 9 cm advised. Reviewed, dictated and finalized at location M. Impression: NG tube side port just above the GE junction. Further advancement by 9 cm advis ed.
[2025-01-19 22:26] VITALS: BP 78/56; RESP 14
--- NOTE | 2025-01-19 22:28 | ECG_ITS ---
Test Date: 2025-01-19 22:30:37 Measurements Intervals Clark Rate: 73 P: 77 CO: 118 QRS: -28 QRSD: 98 T: 94 QT: 419 QTc: 464 Interpretive Statements SINUS RHYTHM WITH SHORT CO INTERVAL POSSIBLE RIGHT VENTRICULAR CONDUCTION DELAY [RSR (QR) IN V1/V2] INF STEMI Compared to ECG 12/31/2024 19:51:40 Short CO interval now present Myocardial infarct finding no longer present Electronically Signed On 01-21-2025 18:54:34 CDT by Dariel Tompkins
[2025-01-19 22:33] VITALS: RESP 14
[2025-01-19 22:34] VITALS: RESP 17
[2025-01-19 22:35] VITALS: BP 118/74; PULSE 73; PULSE 76
[2025-01-19] MEDS: NOREPINEPHRINE 8 MG/D5W 250 ML 8 MG/250 ML BAG 9.38 MG IV CONT (22:35)
[2025-01-19] MEDS: HEPARIN SODIUM 5,000 UNITS/ML VIAL 5000 UNITS IV PUSH (22:35)
[2025-01-19] MEDS: ASPIRIN 325 MG TABLET PO (22:35)
[2025-01-19] MEDS: EPINEPHrine INJ 1 MG in DEXTROSE 5% IN WATER 250 ML 150 MG IV CONT (22:35)
[2025-01-19] MEDS: TICAGRELOR 90 MG TABLET 180 MG PO (22:35)
--- OUTSIDE RECORDS SUMMARY | 2025-01-19 22:35 | XMS_ITS | Encounter Summary ---
Author Organization [facility] Address [address] [place] [address] Phone Care Team Providers Care Wind Projects Supervisor Name Role Phone Travis Lr MD Primary Care Provider Carole Abel ENGRAVING PRESS OPERATOR Unavailable Unavailab le Cassandra Holt MD Unavailable Carole Abel Unavailable Unavailab le Encounter Details Date Type Department Care Team (Late st Contact Info) Description 03/26/2021 Telephone [facility] Referral Management [facility] [address] [place] [address] Travis Lr MD #[address] [id number] Social History Tobacco Use Types Packs/Day Years Used Date Smoking Tobacco: Every Day Cigarettes 0.5 48.6 Started: 06/20/1976 Smokeless Tobacco: Never Alcohol Use [...] to Peer review offered: yes Case #: [id number] Phone #: [phone] Appointment date: N/A Facility: [facility] CPT: 50862 Test: MRI L-SPINE W/O CONTRAST documented in this encounter Plan of Treatment Not on file documented as of this encounter Visit Diagnoses Not on filedocumented in this encounter Additional Health Concerns Infection Onset Date Last Indicated Resolved Time COVID - 19 11/22/2021 11/22/2021 11/22/2021 3:58 PM CAR PILOT Assessment Noted Time PHQ-9 Depression Total Score: 1 12/09/19 21 10:23 AM CDT documented as of this encounter Care Teams Wind Projects Supervisor Relationship Specialty Start Date End Date Travis Lr MD #2 [facility] [address] [place] [address] PCP - General Family Medicine 08/08/15 09/30/24 Carole Abel LSW [place] Access Consultant 07/26/21 01/22/22 Cassandra Holt MD #2 [facility] [address] [place] [address] Consulting Physician Endocrinology 04/10/22 11/09/24 Carole Abel LSW [place] Access Consultant 06/19/23 08/26/23 documented as of this encounter
--- OUTSIDE RECORDS SUMMARY | 2025-01-19 22:35 | XMS_ITS | Encounter Summary ---
Author Organization [facility] Address [address] [place] [address] Phone Care Team Providers Care Handwriting Expert Name Role Phone Unavailable Primary Care Provider Unavailabl e Reason for Visit * Reason Comments Medication Refill Encounter Details Date Type Department Care Team (Late st Contact Info) Description 11/30/2024 Refill [facility] - Family Medicine [facility] [address] [place] [address] Travis Lr MD #[address] [address] Medication Refill Social History Tobacco Use Types Packs/Day Years Used Date Smoking Tobacco: Former Cigarettes 0 03/16/2017 - 04/29/2017 Smokeless Tobacco: Never Alcohol Use Standard Drinks/Week Comments No 0 (1 standard drink = 0.6 oz pur e alcohol) [facility] Utilities Answer Date Recorded In the past 12 months has [employer] electric, gas, oil, or water company threatened [...] week 11/08/2023 How often do you attend restorationism or hindu serv ices? Patient declined 11/08/2023 Do you belong to any clubs o r organizations such as restorationism groups, unions, fraternal or athletic groups, or [...] Total Score - Questions 1-9 0 06/[facility] - Occupational Stress Questionnaire Answer Date [...] place to sleep or slept in a long term (including now)? No 11/08/2023 Education Answer Date [...] Author Transportation Transportation On track(07/31 1:09 PM SERVICE CAR OPERATOR) No Carole Abel LSW Note: Goal: [...] to mail out information about [facility] Transit transportation services \ Phone call to schedule in [facility] trips within 24 hours out of [facility] call within 72 hours. documented as of this encounter Visit Diagnoses Diagnosis Anxiety Anxiety state, unspecified documented in this encounter Additional Health Concerns Assessment Noted Time PHQ-9 Depression Total Score: 0 07/22/20 23 10:21 AM CDT documented as of this encounter
--- OUTSIDE RECORDS SUMMARY | 2025-01-19 22:35 | XMS_ITS | Clinical Summary ---
Author Organization [facility] Address [address] [place] [address] Care Team Providers Care Instrument Designer Name Role Phone Mare Castano MD Primary Care Provider [phone] Allergies Active Allergy Reactions Criticality Noted Date [...] CAD (coronary artery disease) 03/04/2022 Overview (03/04/2022): [place] 2002 Depression 03/04/2022 DM (diabetes mellitus) 03/04/2022 [...] week 04/23/2023 How often do you attend [facility] or [facility] services? Never 04/23/2023 Do you belong to any clubs o r organizations such as adventism groups, unions, fraternal or athletic groups, or [...] place to sleep or slept in a intermediate (including now)? No 04/23/2023 Personal Safety Answer [...] 5 season) 2024 07/18/2021, 06/18/2021 Influenza Vaccine (Season Ended) 2025 06/12/20 18 Procedures Procedure Name Priority Date/Time Associated Diagnosis Comments EGFR Routine 04/24/2023 3:25 AM CDT HEMOGLOBIN A1C Routine 03/15/2017 4:55 AM CDT LIPID PANEL STAT 03/14/2017 10:54 PM CDT from Last 3 Months or Most Recently Relevant to Health Maintenance Results * eGFR (04/24/2023 3:25 AM CDT) eGFR 72 mL/min/1. 73 m2 [facility] ([place]) Comment: Interpretive Data Reference Interval Normal >/= [...] LAB BLOOD ORDERABLES Final Result [facility] ([place]) 1 [facility] Department of Laboratories [place], [place] [id number] * (ABNORMAL) Hemoglobin A1c (03/15/2017 4:55 AM CDT) Hgb A1C 9.4(H) 4.0 - 6.0 % [facility] Comment: Interpretive Data Hemoglobin A1c ADA Interpretive Guidelines <7% Glycemia controlled >8% Hyperglycemia, additional action recommended Dale Immunochemical Method Current interpretive data was last revised on 2016 [facility] [address] [place] [address] Estimated Average Glucose 223 mg/dL [facility]UST Comment:Testing performed by : [facility] [address], [place] [address] Blood specimen (specimen) 03/15/2017 4:55 AM CDT 03/15/2017 12:39 PM CDT us Geovanni Pan MD LAB BLOOD ORDERABLES Final Resu lt [facility] [address] [address] Department [place] [address] * (ABNORMAL) Lipid panel (03/14/2017 10:54 PM [...] LAB BLOOD ORDERABLES Final Resu lt [facility] [address] [facility] Department [place] [address] from Last 3 Months or Most Recently Relevant to Health Maintenance Insurance [place] Advance Directives For more information, please contact: [phone] * Full Code (Latest Code Status on File) Date Activated Date Inactivated Comments 04/23/2023 2:10 AM 04/24/2023 5:55 PM Care Teams Instrument Designer Relationship Specialty Start Date End Date Mare Castano MD PCP - General Family Medicine 04/24/23
--- OUTSIDE RECORDS SUMMARY | 2025-01-19 22:35 | XMS_ITS | Encounter Summary ---
Author Organization [facility] Address [address] [place] [address] Phone Care Team Providers Care Medical Office Asst Name Role Phone Travis Lr MD Primary Care Provider [phone] Cassandra Holt MD Unavailable Carole Abel ACQUISITION CONSULTANT Unavailable Unavailab le Reason for Visit * Reason Comments Medication Refill Encounter Details Date Type Department Care Team (Late st Contact Info) Description 04/11/2023 Refill [facility] [address] [place] [address] Travis Lr MD #[address] [address] Medication Refill Social History Tobacco Use Types Packs/Day Years Used Date Smoking Tobacco: Every Day Cigarettes 1.5 48.6 Started: 06/20/1976 Smokeless Tobacco: Never Alcohol [...] reordered on 04/11/2023 by Alma Romero APRN, AIR DEFENSE ARTILLERY SENIOR SERGEANT. * Telephone Encounter - Amara Kilgore RN - 04/11/2023 3:24 PM CDT duplicate documented in this encounter Plan of Treatment Not on file documented as of this encounter Visit Diagnoses Not on filedocumented in this encounter Additional Health Concerns Assessment Noted Time PHQ-9 Depression Total Score: 0 10/24/19 23 2:00 PM ACCELERATOR OPERATOR documented as of this encounter Care Teams Medical Office Asst Relationship Specialty Start Date End Date Travis Lr MD [facility] [address] [place] [address] PCP - General Family Medicine 08/08/15 09/30/24 Cassandra Holt MD #2 [facility] [address] [place] [address] Consulting Physician Endocrinology 04/10/22 11/09/24 Carole Abel LSW [place] Customer Acquisition Manager 06/19/23 08/26/23 documented as of this encounter
--- OUTSIDE RECORDS SUMMARY | 2025-01-19 22:35 | XMS_ITS | Encounter Summary ---
Author Organization [facility] Address [address] [place] [address] Phone Care Team Providers Care Casing Fluid Tender Name Role Phone Travis Lr MD Primary Care Provider Carole Abel Unavailable Unavailab le Cassandra Holt MD Unavailable Carole Abel Unavailable Unavailab le Reason for Visit * Reason Comments Medication Refill Encounter Details Date Type Department Care Team (Late st Contact Info) Description 06/15/2021 Refill [facility] Medical [facility] - Family Medicine [facility] #2 [place] [id number] Travis Lr MD #[address] [address] Medication Refill Social History Tobacco Use Types [...] - 19 11/22/2021 11/22/2021 11/22/2021 3:58 PM SALES ACCOUNT LEADER Assessment Noted Time PHQ-9 Depression Total Score: 1 12/09/19 21 10:23 AM CDT documented as of this encounter Care Teams Casing Fluid Tender Relationship Specialty Start Date End Date Travis Lr MD #2 [facility] [address] [place] [address] PCP - General Family Medicine 08/08/15 09/30/24 Carole Abel LSW [place] Resource Coordinator 07/26/21 01/22/22 Cassandra Holt MD #2 [facility] [address] [place] [address] Consulting Physician Endocrinology 04/10/22 11/09/24 Carole Abel LSW [place] Resource Coordinator 06/19/23 08/26/23 documented as of this encounter
--- OUTSIDE RECORDS SUMMARY | 2025-01-19 22:35 | XMS_ITS | Encounter Summary ---
Author Organization [facility] Address [address] [place] [address] Phone Care Team Providers Care Front End Application Developer Name Role Phone Travis Lr MD Primary Care Provider [phone] Cassandra Holt MD Unavailable Carole Abel ENERGY CONTROL OFFICER Unavailable Unavailab le Reason for Visit * Reason Comments Medication Refill Encounter Details Date Type Department Care Team (Late st Contact Info) Description 02/13/2023 Refill [facility] #2 [place] [address] Travis Lr MD #[address] [address] Medication Refill Social History Tobacco Use Types [...] 03/05/22 Office Visit Aj Stevenson APRN, MANISHA [facility] Showing recent visits within past 365 days and meeting all other requirements Future Appointments Date Type Provider Dept 04/22/23 Appointment Travis Lr MD [facility] [place] Showing future appointments within next 90 [...] Depression Total Score: 0 10/24/19 2:00 PM SALES AND SERVICE OFFICER documented as of this encounter Care Teams Front End Application Developer Relationship Specialty Start Date End Date Travis Lr MD #2 [facility] [address] [place] [address] PCP - General Family Medicine 08/08/15 09/30/24 Cassandra Holt MD #2 [facility] [address] [place] [address] Consulting Physician Endocrinology 04/10/22 11/09/24 Carole Abel LSW [place] Cellar Worker 06/19/23 08/26/23 documented as of this encounter
--- OUTSIDE RECORDS SUMMARY | 2025-01-19 22:35 | XMS_ITS | Encounter Summary ---
Author Organization [facility] Address [address] [place] [address] Phone Care Team Providers Care Teacher Adventure Education Name Role Phone Cassandra Holt MD Unavailable Reason for Visit * Reason Comments Medication Refill Encounter Details Date Type Department Care Team (Late st Contact Info) Description 10/31/2024 Refill [facility] - Family Medicine [facility] #[address] [place] [address] Travis Lr MD #[address] [address] Medication Refill Social History Tobacco Use Types Packs/Day Years Used Date Smoking Tobacco: Former Cigarettes 0 03/16/2017 - 04/29/2017 Smokeless Tobacco: Never Alcohol Use Standard Drinks/Week Comments No 0 (1 standard drink = 0.6 oz pur e alcohol) [facility] Utilities Answer Date Recorded In the past 12 months has th [employer] electric, gas, oil, or water company threatened [...] week 11/08/2023 How often do you attend samaritan or restorationist serv ices? Patient declined 11/08/2023 Do you belong to any clubs o r organizations such as samaritan groups, unions, fraternal or athletic groups, or [...] Total Score - Questions 1-9 0 06/24 [facility] - Occupational Stress Questionnaire Answer Date [...] to sleep or slept in a senior living (including now)? No 11/08/2023 Education Answer Date [...] Author Transportation Transportation On track(07/31 1:09 PM RUNSTITCHING MACHINE OPERATOR) No Carole Abel LSW Note: Goal: Patient to obtain access to all needed medical services Anticipated Completion Date: In the next 3 months Patient's Preferred Goal: Standard Challenges/Barriers: Lack of knowledge of local resources Readiness to Change: Thinking about making a change Notify Care Team if: You have any issues completing goals outlined below Short Term Goals: [facility] to mail out information about [facility] Transit transportation services \ Phone call to schedule in [facility] trips within 24 hours out of [facility] call within 72 hours. documented as of this encounter Visit Diagnoses Not on filedocumented in this encounter Additional Health Concerns Assessment Noted Time PHQ-9 Depression Total Score: 0 07/22/20 23 10:21 AM CDT documented as of this encounter Care Teams Teacher Adventure Education Relationship Specialty Start Date End Date Cassandra Holt MD #[address] [address] Consulting Physician Endocrinology 04/10/22 11/09/24 documented as of this encounter
--- OUTSIDE RECORDS SUMMARY | 2025-01-19 22:35 | XMS_ITS | Encounter Summary ---
Author Organization [facility] Address [address] [place] [address] Phone Care Team Providers Care Hand Embroiderer Name Role Phone Travis Lr MD Primary Care Provider [phone] Cassandra Holt MD Unavailable Carole Abel CONCRETE JOURNEYMAN Unavailable Unavailab le Reason for Visit * Reason Comments Medication Refill Encounter Details Date Type Department Care Team (Late st Contact Info) Description 05/04/2023 Refill [facility] #2 [place] [address] Travis Lr MD #[address] [address] Medication Refill Social History Tobacco Use Types [...] Provider Dept 07/23/23 Appointment Travis L[facility] MD [facility] [place] Showing future appointments within next 90 days and meeting all other requirements documented in this encounter Plan of Treatment Not on file documented as of this encounter Visit Diagnoses Not on filedocumented in this encounter Additional Health Concerns Assessment Noted Time PHQ-9 Depression Total Score: 0 10/24/19 2:00 PM NUTS AND BOLTS ASSEMBLER documented as of this encounter Care Teams Hand Embroiderer Relationship Specialty Start Date End Date Travis Lr MD #[address] [facility] [address] [place] [address] PCP - General Family Medicine 08/08/15 09/30/24 Cassandra Holt MD #[address] [facility] [address] [place] [address] Consulting Physician Endocrinology 04/10/22 11/09/24 Carole Abel LSW [place] Command And Control Systems Integrator 06/19/23 08/26/23 documented as of this encounter
--- OUTSIDE RECORDS SUMMARY | 2025-01-19 22:35 | XMS_ITS | Encounter Summary ---
Author Organization [facility] Address [address] [place] [address] Phone Care Team Providers Care Agency Development Manager Name Role Phone Travis Lr MD Primary Care Provider Cassandra Holt MD Unavailable Carole Abel TECHNICAL FELLOW Unavailable Unavailab le Reason for Visit * Reason Comments Medication Refill Encounter Details Date Type Department Care Team (Late st Contact Info) Description 08/01/2023 Refill [facility] #2 [place] [address] Travis Lr MD #[address] [address] Medication Refill Social History Tobacco Use Types [...] 05/12/23 Office Visit Aj Stevenson APRN, CNP [facility] [place] 04/22/23 Telemedicine Travis Lr MD [facility] 01/21/23 Office Visit Travis Lr MD [facility] 10/24/22 [facility] Visit [facility] visits within past 365 days and meeting all other requirements Future Appointments Date Type Provider Dept 10/23/23 [facility]ointment [facility] appointments within next 90 days and meeting all other requirements D SUPPORT SPECIALIST documented in this encounter Plan of Treatment Not on file documented as of this encounter Goals Goal Patient Goal Type Associated Problems Recent Progress Patient-Stated? Author Transportation Transportation On track(07/31 1:09 PM CHILD SUPPORT SPECIALIST) No Carole Abel LSW Note: Goal: Patient [...] ANA [place] to mail out information about [facility] Transit transportation services \ Phone call to schedule in [facility] trips within 24 hours out of [facility] call within 72 hours. documented as of this encounter Visit Diagnoses Not on filedocumented in this encounter Additional Health Concerns Assessment Noted Time PHQ-9 Depression Total Score: 0 07/22/20 23 10:21 AM CDT documented as of this encounter Care Teams Agency Development Manager Relationship Specialty Start Date End Date Travis Lr MD #2 [facility] [address] [place] [address] PCP - General Family Medicine 08/08/15 09/30/24 Cassandra Holt MD #2 [facility] [address] [place] [address] Consulting Physician Endocrinology 04/10/22 11/09/24 Carole Abel LSW [place] Treer 06/19/23 08/26/23 documented as of this encounter
--- OUTSIDE RECORDS SUMMARY | 2025-01-19 22:35 | XMS_ITS | Encounter Summary ---
Author Organization [facility] Address [address] [place] [address] Phone Care Team Providers Care Clinic Mgr Name Role Phone Travis Lr MD Primary Care Provider [phone] Cassandra Holt MD Unavailable Carole Abel HOT METAL MIXER OPERATOR HELPER Unavailable Unavailab le Reason for Visit * Reason Comments Medication Refill Encounter Details Date Type Department Care Team (Late st Contact Info) Description 11/14/2022 Refill [facility] Family [facility] #2 [place] [address] Travis Lr MD #[address] [address] Medication Refill Social History Tobacco Use Types [...] Coronavirus/COVID-19? No / Unsure 10/23/2022 3:43 PM VAPOR COATER documented as of this encounter Miscellaneous Notes * Telephone Encounter - Nan Mendiola RN - 11/14/2022 10:07 AM VAPOR COATER Medication failed the protocol, provider to review [...] Lr MD [facility] 03/05/22 Office Visit jA Stevenson APRN, MANISHA [facility] [place] 11/28/21 Office Visit Alma Romero APRN, NATIONAL GUARD MEMBER [facility] Showing recent visits within past 365 days and meeting all other requirements Future Appointments Date Type Provider Dept 01/21/23 Appointment Travis Lr MD [facility] [place] Showing future appointments within next 90 days and meeting all other requirements R COATER documented in this encounter Plan of Treatment Not on file documented as of this encounter Visit Diagnoses Diagnosis Anxiety Anxiety state, unspecified documented in this encounter Additional Health Concerns Assessment Noted Time PHQ-9 Depression Total Score: 0 10/24/19 2:00 PM VAPOR COATER documented as of this encounter Care Teams Clinic Mgr Relationship Specialty Start Date End Date Travis Lr MD #2 [facility] [address] [place] [address] PCP - General Family Medicine 08/08/15 09/30/24 Cassandra Holt MD #2 [facility] [address] [place] [address] Consulting Physician Endocrinology 04/10/22 11/09/24 Carole Abel LSW [place] School Commissioner 06/19/23 08/26/23 documented as of this encounter
--- OUTSIDE RECORDS SUMMARY | 2025-01-19 22:35 | XMS_ITS | Clinical Summary ---
Author Organization [facility] Address [address] [address] Phone Care Team Providers Care Tractor Driver Teamster Name Role Phone Unavailable Primary Care Provider [...] stage 1 chronic kidney disease, unspecified whether intermediate teacher insulin use (HCC) 1 Pen Needle by [...] 08/07/20 23 Active Insulin Pen Needle (Pen [place]) 29G X 12MM Misc 4 times a [...] 07/30/2016 CAD (coronary artery disease) Overview (09/17/2015): [place] 2001 DM (diabetes mellitus) HTN (hypertension) Depression IBS (irritable bowel syndrome) Overview (09/17/2015): DIARRHEA Hyperlipidemia Encounters Date Type Department Care Team Description 12/23/2024 [facility] [place] [phone] Travis Lr MD 11/30/2024 [facility] [place] [address] Travis Lr MD Medication Refill 10/31/2024 [facility] [place] [address] Travis Lr MD Medication Refill from Last [...] 0.6 oz pur e alcohol) [facility] Utilities Answer Date Recorded In the past [...] week 11/08/2023 How often do you attend voodoo or quaker serv ices? Patient declined 11/08/2023 Do you belong to any clubs o r organizations such as voodoo groups, unions, fraternal or athletic groups, or [...] Total Score - Questions 1-9 0 06/24 [facility] - Occupational Stress Questionnaire Answer [...] place to sleep or slept in a care home (including now)? No 11/08/2023 Education Answer Date [...] Comments Blood Pressure 126/80 11/10/2023 2:30 PM CERTIFIED MEDICATION TECHNICIAN Pulse 62 11/10/2023 2:30 PM CERTIFIED MEDICATION TECHNICIAN Temperature 36.1 C (97 F) 11/10/2023 2:30 PM CERTIFIED MEDICATION TECHNICIAN Respiratory Rate 16 07/22/2023 10:24 AM CDT Oxygen Saturation 96% 11/10/2023 2:30 PM CERTIFIED MEDICATION TECHNICIAN Inhaled Oxygen Concentration - - Weight 108.9 kg (240 lb) 11/10/2023 2:30 PM CERTIFIED MEDICATION TECHNICIAN Height 157.5 cm (5' 2 ) 11/10/2023 2:30 PM CERTIFIED MEDICATION TECHNICIAN Body Mass Index 43.9 11/10/2023 2:30 PM CERTIFIED MEDICATION TECHNICIAN Plan of Treatment Health Maintenance Due Date [...] Author Transportation Transportation On track(07/31 1:09 PM CERTIFIED MEDICATION TECHNICIAN) No Carole Abel LSW Note: Goal: Patient [...] ANA URRUTIA to mail out information about [facility] Transit transportation services \ Phone call to schedule in [facility] trips within 24 hours out of [facility] call within 72 hours. Medical Devices Implanted Type Area Accounting Assistant Device Identifier Shelf Expiration Date Model / Serial / Lot Angioseal Vip 6fr - [id number] Implanted:Qty: 1 on 09/11/2016 by Eriberto Hoffman MD at [facility] IMPLANT Right: Groin ST SANDRA / ATRIAL FIB 04/21/2017 [id number] / / [id number] Cast Covered Stent [id number] Implanted:Qty: 1 on 09/11/2016 by Eriberto Hoffman MD at [facility] Aorta [employer]othing 05/14/2019 [id number] / [id number] / NA Procedures Procedure Name Priority Date/Time Associated Diagnosis Comments CMP (COMPREHENSIVE METABOLIC PANEL) Routine 11/10/2023 2:58 PM CERTIFIED MEDICATION TECHNICIAN Type 2 diabetes mellitus with other specified complication, with long-term current use of insulin (HCC) Pure hypercholesterolemia Primary hypertension POCT GLYCOSYLATED HEMOGLOBIN Routine 01/21/2023 2:14 PM CDT Type 2 diabetes mellitus with other specified complication, with long-term current use of insulin (HCC) CT CHEST W/O CONTRAST STAT 11/22/2021 1:34 PM CERTIFIED MEDICATION TECHNICIAN HM DILATED EYE EXAM 05/03/2021 1 2:00 AM CDT MIKEY SCREENING BILATERAL DIGITAL W CAD Routine 09/19/2016 10:21 AM CERTIFIED MEDICATION TECHNICIAN Type 2 diabetes mellitus without complication, without long-term current use of insulin (<HCC>) Coronary artery 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, unspecified vessel or lesion type (<HCC>) from Last 3 Months or Most Recently Relevant to Health Maintenance Results * (ABNORMAL) CMP (COMPREHENSIVE METABOLIC PANEL) (11/10/2023 2:58 PM CERTIFIED MEDICATION TECHNICIAN) SODIUM 143 136 - 145 mmol/L 11/10/2023 4:28 PM [facility] POTASSIUM 4.8 3.5 - 5.1 mmol/L 11/10/2023 4:28 PM [facility] CHLORIDE 100 98 - 107 mmol/L 11/10/2023 4:28 PM [facility] CO2, VENOUS 35(H) 22 - 30 mmol/L 11/10/2023 4:28 PM [facility] ANION GAP 12.8 <18.0 mmol/L 11/10/2023 4:28 PM [facility] GLUCOSE 67(L) 70 - 99 mg/dL 11/10/2023 4:28 PM [facility] BUN 20 10 - 20 mg/dL 11/10/2023 4:28 PM [facility] CREATININE, BLOOD 0.80 0.60 - 1.00 mg/dL 11/10/2023 4:28 PM [facility] BUN/CREATININE RATIO 25(H) 12 - 20 ratio 11/10/2023 4:28 PM [facility] TOTAL PROTEIN 7.0 6.3 - 8.2 g/dL 11/10/2023 4:28 PM [facility] ALBUMIN 3.8 3.5 - 5.0 g/dL 11/10/2023 4:28 PM [facility] A/G RATIO 1.2 1.0 - 2.2 11/10/2023 4:28 PM [facility] CALCIUM 9.4 8.7 - 10.5 mg/dL 11/10/2023 4:28 PM [facility] T BILI 0.2 0.2 - 1.2 mg/dL 11/10/2023 4:28 PM [facility] SGOT (AST) 12 5 - 34 U/L 11/10/2023 4:28 PM [facility] SGPT (ALT) 9 0 - 55 U/L 11/10/2023 4:28 PM CERTIFIED MEDICATION TECHNICIAN [facility] ALKALINE PHOSPHATASE 73 40 - 150 U/L 11/10/2023 4:28 PM CERTIFIED MEDICATION TECHNICIAN [facility] IS THE PATIENT REQUIRED TO BE FASTING? No 11/10/2023 4:28 PM CERTIFIED MEDICATION TECHNICIAN [facility] GFR, ESTIMATED >60 >=60 11/10/2023 4:28 PM CERTIFIED MEDICATION TECHNICIAN [facility] Comment: Creatinine Clearance is the preferred criteria for selecting drug dose adjustments in renally impaired patients. The GFR is provided as additional pertinent clinical information. GFR is reported in mL/min/1.73 sq m. Calculation based on the Chronic Kidney Disease Epidemiology Collaboration (CKD- EPI) equation refit without adjustment for race. GFR, EST. >60 >=60 024 4:28 PM CERTIFIED MEDICATION TECHNICIAN [facility] GFR, EST. NONAFRICAN >60 >=60 11/10/2023 4:28 PM CERTIFIED MEDICATION TECHNICIAN [facility] Blood Venipuncture / Unknown 11/10/2023 2:58 PM CERTIFIED MEDICATION TECHNICIAN 11/10/2023 2:58 PM CERTIFIED MEDICATION TECHNICIAN us Travis rL MD CHEMISTRY ORDERABLES Final Re sult [facility] [address] [place] [address] * (ABNORMAL) POCT GLYCOSYLATED HEMOGLOBIN (01/21/2023 2:14 PM CDT) HGB-A1C 6.8(A) 4 - 6 % Blood 01/21/2023 2:14 PM CDT us Cassandra Holt MD POINT OF CARE TESTING (MANUAL) F inal Result * CT CHEST W/O CONTRAST (11/22/2021 1:34 PM CERTIFIED MEDICATION TECHNICIAN) Anatomical Region Laterality Modality Chest N/A Computed Tomogra phy 11/22/2021 1:50 PM CERTIFIED MEDICATION TECHNICIAN Impressions 11/22/2021 1:53 PM CERTIFIED MEDICATION TECHNICIAN IMPRESSION: 1. No acute findings are identified [...] as described above. Narrative 11/22/2021 1:53 PM CERTIFIED MEDICATION TECHNICIAN EXAM DESCRIPTION: CT CHEST W/O CONTRAST REASON [...] Per Seymour M.D. RL: HENRY Report ID: [id number] Reading Location: [place] [address] Procedure Note Per Seymour MD - 11/22/2021 [...] Per Seymour M.D. RL: HENRY Report ID: [id number] Reading Location: [place] [address] IMPRESSION: 1. No acute findings are identified [...] BILATERAL DIGITAL W CAD (09/19/2016 10:21 AM CERTIFIED MEDICATION TECHNICIAN) Anatomical Region Laterality Modality breast Bilateral Mammography 09/19/2016 9:54 AM CERTIFIED MEDICATION TECHNICIAN Narrative 09/20/2016 7:21 AM CERTIFIED MEDICATION TECHNICIAN - MIKEY SCREENING BILATERAL DIGITAL W CAD [...] Comparison is made to exam dated: 02/06/2011 [facility]. BREAST TISSUE:There are scattered fibroglandular [...] exam. Electronically signed by: Andres hernández/laz:09/19/2016 14:59:04 Er Medical Technician: Elizabet CHINCHILLA(R)(M), [facility] letter sent: Normal Exam Reading location: [facility] BI-RADS: 1 Negative Procedure Note Andres [...] Comparison is made to exam dated: 02/06/2011 [facility]. BREAST TISSUE:There are scattered fibroglandular [...] signed by: Andres Veronica M.D. nh/penrad:09/19/2016 14:59:04 Er Medical Technician: Elizabet CHINCHILLA(Wyatt)(M), [facility] letter sent: Normal Exam Reading location: [facility] BI-RADS: 1 Negative us Travis Lr MD IMG MAMMO ORDERABLES Final Re sult from Last 3 Months or Most Recently Relevant to Health Maintenance Insurance [facility] Advance Directives Documents on File Type Date Recorded Patient Founder Ceo & President Expl anation Power of Supervisor [facility] 08/09/2021 4:16 PM POA-HC [...]
--- OUTSIDE RECORDS SUMMARY | 2025-01-19 22:35 | XMS_ITS | Encounter Summary ---
Author Organization [facility] Address [address] [place] [address] Phone Care Team Providers Care Labor Utilization Superintendent Name Role Phone Travis Lr MD Primary Care Provider [phone] Cassandra Holt MD Unavailable Carole Abel WOOD TURNER Unavailable Unavailab le Reason for Visit * Reason Comments Medication Refill Encounter Details Date Type Department Care Team (Late st Contact Info) Description 08/16/2022 Refill [facility] [address] [place] [address] Travis Lr MD #[address] [address] Medication Refill Social History Tobacco Use Types [...] Coronavirus/COVID-19? No / Unsure 07/31/2022 11:56 AM MANAGER HOTEL documented as of this encounter Miscellaneous Notes * Telephone Encounter - Nan Mendiola RN - 08/16/2022 8:52 AM MANAGER HOTEL Refill requested too soon. GER HOTEL documented in this encounter Plan of Treatment Not on file documented as of this encounter Visit Diagnoses Not on filedocumented in this encounter Additional Health Concerns Assessment Noted Time PHQ-9 Depression Total Score: 0 11/29/19 10:00 AM MANAGER HOTEL documented as of this encounter Care Teams Labor Utilization Superintendent Relationship Specialty Start Date End Date Travis Lr MD #2 [facility] [address] [place] [address] PCP - General Family Medicine 08/08/15 09/30/24 Cassandra Holt MD #2 [facility] [address] [place] [address] Consulting Physician Endocrinology 04/10/22 11/09/24 Carole Abel LSW [place] Meteorological Technician 06/19/23 08/26/23 documented as of this encounter
--- OUTSIDE RECORDS SUMMARY | 2025-01-19 22:35 | XMS_ITS | Encounter Summary ---
Author Organization [facility] Address [address] [place] [address] Phone Care Team Providers Care Bend Up Name Role Phone Travis Lr MD Primary Care Provider [phone] Carole Abel Unavailable Unavailab Carole Walsh Unavailable Unavailab Cassandra Vidal MD Unavailable Carole Abel Unavailable Unavailab le Reason for Visit * Reason Comments Medication Refill Encounter Details Date Type Department Care Team (Late st Contact Info) Description 07/13/2020 Refill [facility] [address]2 [place] [address] Travis Lr MD #[address] [address] Medication Refill Social History Tobacco Use Types [...] - 19 11/22/2021 11/22/2021 11/22/2021 3:58 PM CELL REPAIRER Assessment Noted Time PHQ-9 Depression Total Score: 8 05/15/20 20 2:12 PM CDT documented as of this encounter Care Teams Bend Up Relationship Specialty Start Date End Date Travis Lr MD #2 [facility] [address] [place] [address] PCP - General Family Medicine 08/08/15 09/30/24 Carole Abel LSW [place] Employee Health Nurse 12/08/20 03/18/21 Carole Abel LSW [place] Employee Health Nurse 07/26/21 01/22/22 Cassandra Holt MD #2 [facility] [address] [place] [address] Consulting Physician Endocrinology 04/10/22 11/09/24 Carole Abel LSW [place] Employee Health Nurse 06/19/23 08/26/23 documented as of this encounter
--- OUTSIDE RECORDS SUMMARY | 2025-01-19 22:35 | XMS_ITS | Encounter Summary ---
Author Organization [facility] Address [address] [place] [address] Phone Care Team Providers Care Intelligence Engineer Name Role Phone Travis Lr MD Primary Care Provider [phone] Cassandra Holt MD Unavailable Reason for Visit * Reason Comments Medication Refill Encounter Details Date Type Department Care Team (Late st Contact Info) Description 12/05/2023 Refill [facility] [address]2 [place] [address] Travis Lr MD #[address] [address] Medication Refill Social History Tobacco Use Types Packs/Day Years Used Date Smoking Tobacco: Former Cigarettes 0 03/16/2017 - 04/29/2017 Smokeless Tobacco: Never Alcohol Use Standard Drinks/Week Comments No 0 (1 standard drink = 0.6 oz pur e alcohol) [facility] Utilities Answer Date Recorded In the past 12 months has [employer] electric, gas, oil, or water company threatened [...] week 11/08/2023 How often do you attend gnosticist or lutheran serv ices? Patient declined 11/08/2023 Do you belong to any clubs o r organizations such as gnosticist groups, unions, fraternal or athletic groups, or [...] Total Score - Questions 1-9 0 06/24 [facility] - [...] place to sleep or slept in a correction (including now)? No 11/08/2023 Education Answer Date [...] Author Transportation Transportation On track(07/31 1:09 PM CAREER RESOURCE TECHNICIAN) Carole Herrera LSW Note: Goal: Patient to obtain access to all needed medical services Anticipated Completion Date: In the next 3 months Patient's Preferred Goal: Standard Challenges/Barriers: Lack of knowledge of local resources Readiness to Change: Thinking about making a change Notify Care Team if: You have any issues completing goals outlined below Short Term Goals: SW CM to mail out information about [facility] Transit transportation services \ Phone call to schedule in [facility] trips within 24 hours out of [facility] call within 72 hours. documented as of this encounter Visit Diagnoses Diagnosis Anxiety Anxiety state, unspecified documented in this encounter Additional Health Concerns Assessment Noted Time PHQ-9 Depression Total Score: 0 07/22/20 23 10:21 AM CDT documented as of this encounter Care Teams Intelligence Engineer Relationship Specialty Start Date End Date Travis Lr MD #2 [facility] [place] [address] [place] [address] PCP - General Family Medicine 08/08/15 09/30/24 Cassandra Holt MD #2 [facility] [place] [address] [place] [address] Consulting Physician Endocrinology 04/10/22 11/09/24 documented as of this encounter
--- OUTSIDE RECORDS SUMMARY | 2025-01-19 22:35 | XMS_ITS | Encounter Summary ---
Author Organization [facility] Address [address] [place] [address] Phone Care Team Providers Care Wrap Yarn Sorter Name Role Phone Travis Lr MD Primary Care Provider [phone] Carole Abel Unavailable Unavailab le Cassandra Holt MD Unavailable Carole Abel Unavailable Unavailab le Reason for Visit * Reason Comments Medication Refill Encounter Details Date Type Department Care Team (Late st Contact Info) Description 05/16/2021 Refill [facility] #2 [place] [id number] Travis Lr MD #[address] [address] Medication Refill Social History Tobacco Use Types [...] - 19 11/22/2021 11/22/2021 11/22/2021 3:58 PM 911 DISPATCHER Assessment Noted Time PHQ-9 Depression Total Score: 1 12/09/19 21 10:23 AM CDT documented as of this encounter Care Teams Wrap Yarn Sorter Relationship Specialty Start Date End Date Travis Lr MD #2 [facility] [address] [place] [address] PCP - General Family Medicine 08/08/15 09/30/24 Carole Abel LSW [place] Credit Reporter 07/26/21 01/22/22 Cassandra Holt MD #2 [facility] [address] [place] [address] Consulting Physician Endocrinology 04/10/22 11/09/24 Carole Abel LSW [place] Credit Reporter 06/19/23 08/26/23 documented as of this encounter
--- OUTSIDE RECORDS SUMMARY | 2025-01-19 22:35 | XMS_ITS | Encounter Summary ---
Author Organization [facility] Address [address] [place] [address] Phone Care Team Providers Care Taxation Inspector Name Role Phone Travis Lr MD Primary Care Provider [phone] Carole Abel Unavailable Unavailab le Cassandra Holt MD Unavailable Carole Abel Unavailable Unavailab le Reason for Visit * Reason Comments Medication Refill Encounter Details Date Type Department Care Team (Late st Contact Info) Description 08/06/2021 Refill [facility] #2 [place] [phone] Travis Lr MD #[address] [address] Medication Refill Social History Tobacco Use Types [...] COVID-19? No / Unsure 08/08/2021 1:03 PM BOARDING HOUSE COOK documented as of this encounter Miscellaneous Notes * Telephone Encounter - Amara Kilgore RN - 08/07/2021 7:53 AM CST Images from the original note were not included. Name from pharmacy: ALPRAZOLAM 1MG TABLETS Will file in chart as: ALPRAZolam (XANAX) 1 MG Tablet The original prescription was reordered on 08/06/2021 by Travis Lr MD. DING HOUSE COOK documented in this encounter Plan of Treatment Not on file documented as of this encounter Visit Diagnoses Diagnosis Anxiety Anxiety state, unspecified documented in this encounter Additional Health Concerns Infection Onset Date Last Indicated Resolved Time COVID - 19 11/22/2021 11/22/2021 11/22/2021 3:58 PM BOARDING HOUSE COOK Assessment Noted Time PHQ-9 Depression Total Score: 1 07/26/20 21 11:53 AM CDT documented as of this encounter Care Teams Taxation Inspector Relationship Specialty Start Date End Date Travis Lr MD #2 [facility] [address] [place] [address] PCP - General Family Medicine 08/08/15 09/30/24 Carole Abel LSW [place] Advertising Project Manager 07/26/21 01/22/22 Cassandra Holt MD #2 [facility] [address] [place] [address] Consulting Physician Endocrinology 04/10/22 11/09/24 Carole Abel LSW [place] Advertising Project Manager 06/19/23 08/26/23 documented as of this encounter
--- OUTSIDE RECORDS SUMMARY | 2025-01-19 22:35 | XMS_ITS | Encounter Summary ---
Author Organization [facility] Address [address] [place] [address] Phone Care Team Providers Care Seconds Handler Name Role Phone Travis Lr MD Primary Care Provider [phone] Cassandra Holt MD Unavailable Reason for Visit * Reason Comments Medication Refill Encounter Details Date Type Department Care Team (Late st Contact Info) Description 11/03/2023 Refill [facility] #2 [place] [address] Travis Lr MD #[address] [address] Medication Refill Social History Tobacco Use Types [...] Dept 07/22/23 Office Visit Travis Lr MD [facility] [place] 05/22/23 Office Visit Travis Lr MD [facility] 05/20/23 Office Visit Travis Lr MD [facility] 05/12/23 Office Visit Aj Stevenson APRN, CNP [facility] [place] 04/22/23 Telemedicine Travis Lr MD [facility] 01/21/23 Office Visit Travis Lr MD [facility] [place] Showing recent visits within past 365 days and meeting all other requirements Future Appointments Date Type Provider Dept 11/10/23 Appointment Travis Lr MD [facility] [place] Showing future appointments within next 90 days and meeting all other requirements TAL IMAGER documented in this encounter Plan of Treatment Not on file documented as of this encounter Goals Goal Patient Goal Type Associated Problems Recent Progress Patient-Stated? Author Transportation Transportation On track(07/31 1:09 PM DIGITAL IMAGER) No Carole Abel LSW Note: Goal: Patient [...] ANA URRUTIA to mail out information about [facility] Transit transportation services \ Phone call [facility] within 24 hours out of county call within 72 hours. documented as of this encounter Visit Diagnoses Not on filedocumented in this encounter Additional Health Concerns Assessment Noted Time PHQ-9 Depression Total Score: 0 07/22/20 23 10:21 AM CDT documented as of this encounter Care Teams Seconds Handler Relationship Specialty Start Date End Date Travis Lr MD #2 [facility] [address] [place] [address] PCP - General Family Medicine 08/08/15 09/30/24 Cassandra Holt MD #2 [facility] [address] [place] [address] Consulting Physician Endocrinology 04/10/22 11/09/24 documented as of this encounter
--- OUTSIDE RECORDS SUMMARY | 2025-01-19 22:35 | XMS_ITS | Clinical Summary ---
Author Organization [facility] Address [address] [place] [address] Care Team Providers Care Systems Integration Manager Name Role Phone Indio Yeager Primary Care Provider [phone] Allergies Active Allergy Reactions Criticality Noted Date Comments Sulfa Antibiotics Rash Low 01/02/2025 Medications atorvastatin (LIPITOR) 20 MG tabletIndications:H LD Take 1 tablet (20 mg total) by mouth daily. Indications: HLD 11/12/19 25 Active busPIRone (BUSPAR) 5 MG tabletIndications:a nxiety Take 1 tablet by mouth 2 (two) times daily. Indications: anxiety 12/14/19 25 Active carvedilol (COREG) 6.25 MG tabletIndications:H TN Take 1 tablet by mouth 2 (two) times daily. Indications: HTN 09/30/19 25 Active citalopram (CELEXA) 40 MG tabletIndications:a nxiety Take 1 tablet (40 mg total) by mouth daily. Indications: anxiety 12/14/19 25 Active gabapentin (NEURONTIN) 300 MG capsuleIndications: pain Take 1 capsule by mouth 3 (three) times daily. Indications: pain 11/11/19 25 Active HYDROcodone-acetami nophen (NORCO) 10-325 MG tabletIndications:C hronic Pain Take 1 tablet by mouth 4 (four) times daily as needed. Indications: Chronic Pain 12/07/19 25 Active hydrOXYzine (VISTARIL) 50 MG capsuleIndications: HTN Take 1 capsule by mouth 3 (three) times daily as needed for Anxiety. Indications: HTN 09/20/20 24 Active NOVOLIN N FLEXPEN RELION 100 UNIT/ML Suspension Pen-injector injection (PEN)Indications:DM Inject 20-24 Units into the skin 2 (two) times a day. Indications: DM 24 units AM 20 units PM 12/08/19 25 Active tiZANidine (ZANAFLEX) 2 MG tabletIndications:p ain Take 1 tablet by mouth 3 (three) times daily as needed. Indications: pain 12/07/19 25 Active BI-PAP DEVICE, DME,Indications:Chr onic Obstructive Pulmonary Disease,Chronic Respiratory Failure 1 Device by Does not apply route nightly at bedtime. Indications: Chronic Obstructive Lung Disease, Chronic Respiratory Failure BIPAP DEVICE. IPAP 20 EPAP 6, 3L 02 bled in. Patient mask to fit per patient comfort. Humidifier, heated tubing, filters, Length of need 24 months. Diagnosis COPD and Chronic Respiratory Failure/ 1 Device 01/08/20 25 Active albuterol sulfate HFA 108 (90 Base) MCG/ACT inhalerIndications: Exacerbation of Chronic Obstructive Pulmonary Disease Inhale 2 puffs into the lungs every 4 (four) hours as needed for Wheezing or Shortness of breath. Indications: Worsening of Chronic Obstructive Lung Disease 8 g 01/08/20 25 025 Active aspirin 81 MG chewable tabletIndications:C oronary Arteriosclerosis Chew 1 tablet (81 mg total) by mouth daily for 30 days. Indications: Thickening and Hardening of Heart Arteries 30 tablet 01/09/20 25 025 Active ipratropium-albuter ol (DUONEB) 0.5-2.5 (3) MG/3ML SolutionIndications :Exacerbation of Chronic Obstructive Pulmonary Disease Take 3 mLs by nebulization every 6 (six) hours as needed. Indications: Worsening of Chronic Obstructive Lung Disease 360 mL 01/08/20 25 025 Active polyethylene glycol (GLYCOLAX) packetIndications:C onstipation Take 240 mLs (17 g total) by mouth daily as needed for Constipation. Indications: Constipation Dissolve powder in 240 mL water 30 each 01/08/20 25 025 Active budesonide-formoter ol (SYMBICORT) 80-4.5 MCG/ACT inhalerIndications: Exacerbation of Chronic Obstructive Pulmonary Disease Inhale 2 puffs into the lungs 2 (two) times daily for 60 days. Indications: Worsening of Chronic Obstructive Lung Disease 27.6 g 01/08/20 25 025 Active furosemide (LASIX) 20 MG tabletIndications:H ypertension Take 1 tablet (20 mg total) by mouth daily for 30 days. Indications: High Blood Pressure 30 tablet 01/08/20 25 025 Active ferrous sulfate, 65 mg elemental, 325 (65 FE) MG tabletIndications:A nemia Take 1 tablet (325 mg total) by mouth daily with breakfast for 60 days. Indications: Anemia 60 tablet 01/08/20 25 025 Active predniSONE (DELTASONE) 20 MG tabletIndications:E xacerbation of Chronic Obstructive Pulmonary Disease Take 2 tablets (40 mg total) by mouth daily for 3 days. Indications: Worsening of Chronic Obstructive Lung Disease 6 tablet 01/09/20 25 025 Active Problems Problem Noted Date Diagnosed Date COPD (chronic obstructive pu lmonary disease) ([facility]) 01/07/2025 Hypercapnic respiratory failure ([facility] ) 01/01/2025 Acute on chronic respiratory failure with hypoxia and hypercapnia ([facility]) 01/01/2025 Encounters Date Type Department Care Team Description 01/18/2025 9:30 AM CDT Home Care Visit [facility] [address] [place] [address] Pascual Lorenzana, PT PT INITIAL EVALUATION 01/14/2025 2:30 PM CDT Home Care Visit [facility] [address] [place] [address] Kristyn Frost, SUPERVISOR AGENCY APPOINTMENTS SUPERVISOR AGENCY APPOINTMENTS INITIAL EVALUATION 01/14/2025 1:30 PM CDT Home Care Visit [facility] [address] [place] [address] Melinda Ferrari CNA AIDE HOME VISIT 01/14/2025 10:00 AM CDT Home Care Visit [facility] [address] [place] [address] Anika Vaughn, OT OT INITIAL EVALUATION 01/12/2025 8:30 AM CDT Home Care Visit [facility] [address] [place] [address] Aby Tim CNA AIDBabatunde HOME VISIT 01/12/2025 Home Care Visit [facility] [address] [place] [address] Pascual Lorenzana, PT CASE COMMUNICATION 01/11/2025 9:00 AM CDT Home Care Visit [facility] [address] [place] [address] Shena Nunez, RN SN OASIS START OF CARE 01/11/2025 Plan of Care Documentation [facility] [address] [place] [address] 01/05/2025 Travel 01/01/2025 2:28 AM CDT - 01/07/2025 8:00 PM CDT Hospital Encounter [facility] [address] [place] [address] Praveen Morrow MD Goyal, Pankaj, MD Rangu, Venu Mohan, MD Kakani, Sukhwinder Salas MD Discharge Disposition: Home with Home Health Care from Last 3 Months Immunizations Immunization Administration Dates Next Due Influenza Adult (Generic) 06/12/2018 MODERNA COVID-19 (12+) MRNA, LNP-S, PF, 100 MCG/ 0.5 ML DOSE 07/18/2021,06/18/2021 Pneumococcal (Pneumovax 23) 03/13/2021 Social History Tobacco Use Types Packs/Day Years Used Date Smoking Tobacco: Every Day Cigarettes Smokeless Tobacco: Never Tobacco Cessation:Ready to Q uit: Not Asked OASIS D0700: Social Isolation Answer Da te Recorded Frequency of experiencing loneliness or isolatio n Never 01/11/2025 OASIS A1250: Transportation Answer Date Recorded Lack of Transportation (Medical) No 01/11/2025 Lack of Transportation (Non-Medical) No 01/11/2025 Patient Unable or Declines to Respond No 01/11/2025 OASIS B1300: Health Literacy Answer Jameel e Recorded Frequency of needing help to read materials from doctor or pharmacy Never 01/11/2025 [facility] Utilities Answer Date Recorded In the past 12 months has th e electric, gas, oil, or water [employer] threatened to shut off services in your home? No 01/05/2025 Humiliation, Afraid, Rape, and Kick questionnair e Answer Date Recorded Within the last year, have y ou been afraid of your partner or ex-partner? No 01/05/2025 Within the last year, have y ou been humiliated or emotionally abused in other ways by your partner or ex-partner? No Within the last year, have y ou been kicked, hit, slapped, or otherwise physically hurt by your partner or ex-partner? No 01/05/2025 Within the last year, have y ou been raped or forced to have any kind of sexual activity by your partner or ex-partner? No 01/05/2025 Overall Financial Resource Strain (CARDIA) Answe r Date Recorded How hard is it for you to pa y for the very basics like food, housing, medical care, and heating? Not hard at all 01/05/2025 Hunger Vital Sign Answer Date Recorded Within the past 12 months, y ou worried that your food would run out before you got the money to buy more. Never true 01/06/20 25 Within the past 12 months, t he food you bought just didn't last and you didn't have money to get more. Never true 01/05/2025 PRAPARE - Transportation Answer Date Re corded In the past 12 months, has l ack of transportation kept you from medical appointments or from getting medications? No 12/21 In the past 12 months, has l ack of transportation kept you from meetings, work, or from getting things needed for daily living? No 01/05/2025 Housing Stability Vital Sign Answer Jameel e Recorded In the last 12 months, was t here a time when you were not able to pay the mortgage or rent on time? No 01/05/2025 In the past 12 months, how m any times have you moved where you were living? 0 01/05/2025 At any time in the past 12 m [address] [place], were you homeless or living in a correction (including now)? 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 Gender Identity Not on file Sexual Orientation Not on file Last Filed Vital Signs Vital Sign Reading Time Taken Comments Blood Pressure 110/60 01/18/2025 9:57 AM CDT Pulse 62 01/18/2025 9:57 AM CDT Temperature 36.4 C (97.6 F) 01/18/2025 9:57 AM CDT Respiratory Rate 18 01/18/2025 9:57 AM CDT Oxygen Saturation 93% 01/18/2025 9:57 AM CDT 4l/nc Inhaled Oxygen Concentration - - Weight 102.8 kg (226 lb 10.1 oz) 01/03/2025 5:00 AM CDT Height 167.6 cm (5' 6 ) 01/01/2025 2:00 AM CDT Body Mass Index 36.58 01/01/2025 2:00 AM CDT Plan of Treatment Upcoming Encounters Date Type Department Care Team (Late st Contact Info) Description 01/20/2025 2:30 PM CDT Home Care Visit [facility] [address] [place] [address] Rosita Sommer LPN 01/21/2025 9:00 AM CDT Home Care Visit [facility] [address] [place] [address] Katrin Cummings, RESERVATIONS CLERK 01/25/2025 1:00 PM CDT Home Care Visit [facility] [address] [place] [address] Katrin Cummings, RESERVATIONS CLERK 01/26/2025 1:30 PM CDT Home Care Visit [facility] [address] [place] [address] Angela Lucas, RN 01/28/2025 1:00 PM CDT Home Care Visit [facility] [address] [place] [address] Katrin Cummings, RESERVATIONS CLERK 02/01/2025 2:00 PM CDT Home Care Visit [facility] [address] [place] [address] Katrin Cummings CNA 02/03/2025 9:00 AM CDT Home Care Visit [facility] Home [facility] [address] [place] [address] Angela Lucas RN 02/04/2025 10:00 AM CDT Home Care Visit [facility] [address] [place] [address] Katrin Cummings CNA Health Maintenance Due Date Last Done Comments Cervical Cancer Screening Pa p Smear (Age 30 to 64) Every 3 Years 1961 Colorectal Cancer Screening Colonoscopy (10 Years) 1961 Annual Physical 1964 Hepatitis C 1979 Cervical Cancer Screening Pa p with HPV Testing (Age 30 to 64) Every 5 Years 1991 Cervical Cancer Screening wi th HPV 1991 DTaP, Tdap and Td Vaccines ( 1 - Tdap) 09/23/2010 09/22/2010 Zoster Vaccines (1 of 2) 2011 Mammogram Screening 09/19/2018 09/19/2016 RSV Immunization or 60+ Years (1 - Risk 60-74 years 1-dose series) 2021 Pneumococcal Vaccine: 50+ Years (2 of 2 - PCV) 03/13/2022 03/13/2021 COVID-19 Vaccine (3 - 2023-2 5 season) 2024 07/18/2021, 06/18/2021 PHQ-2 (Physician [place]) 09/22/2024 Meningococcal B Vaccine Aged Out No l onger eligible based on patient's age to complete this topic Meningococcal Vaccine Aged Out No daniela genesis eligible based on patient's age to complete this topic RSV Immunizations Under 20 Months Aged Out No longer eligible b ased on patient's age to complete this topic Procedures Procedure Name Priority Date/Time Associated Diagnosis Comments HOME O2 EVAL Routine 01/07/2025 12:25 PM CDT POCT GLUCOSE - OLIVERA DOCKED DEVICE Routine 01/07/2025 11:49 AM CDT SPIROMETRY WITHOUT BRONCHODILATOR Routine 01/07/2025 8:50 AM CDT POCT GLUCOSE - OLIVERA DOCKED DEVICE Routine 01/07/2025 6:15 AM CDT BLOOD GAS, ARTERIAL LAB Routine 01/07/2025 2:37 AM CDT MAGNESIUM Routine 01/07/2025 2:31 AM CDT CBC W/DIFF AUTOMATED Routine 01/07/2025 2:31 AM CDT BASIC METABOLIC PANEL Routine 01/07/2025 2:31 AM CDT POCT GLUCOSE - OLIVERA DOCKED DEVICE Routine 01/06/2025 7:54 PM CDT BLOOD GAS, VENOUS STAT 01/06/2025 2:4 4 PM CDT POCT GLUCOSE - OLIVERA DOCKED DEVICE Routine 01/06/2025 11:30 AM CDT BLOOD GAS, VENOUS STAT 01/06/2025 9:0 0 AM CDT POCT GLUCOSE - OLIVERA DOCKED DEVICE Routine 01/06/2025 6:18 AM CDT PHOSPHORUS, INORGANIC PHOSPHATE Routine 01/06/2025 1:56 AM CDT MAGNESIUM Routine 01/06/2025 1:56 AM CDT CBC W/DIFF AUTOMATED Routine 01/06/2025 1:56 AM CDT COMPREHENSIVE METABOLIC PANEL Routine 01/06/2025 1:56 AM CDT POCT GLUCOSE - OLIVERA DOCKED DEVICE Routine 01/05/2025 8:03 PM CDT POCT GLUCOSE - OLIVERA DOCKED DEVICE Routine 01/05/2025 4:01 PM CDT POCT GLUCOSE - OLIVERA DOCKED DEVICE Routine 01/05/2025 11:15 AM CDT BLOOD GAS, VENOUS STAT 01/05/2025 9:0 6 AM CDT POCT GLUCOSE - OLIVERA DOCKED DEVICE Routine 01/05/2025 6:22 AM CDT PHOSPHORUS, INORGANIC PHOSPHATE Routine 01/05/2025 1:58 AM CDT MAGNESIUM Routine 01/05/2025 1:58 AM CDT COMPREHENSIVE METABOLIC PANEL Routine 01/05/2025 1:58 AM CDT CBC W/DIFF AUTOMATED Routine 01/05/2025 1:58 AM CDT POCT GLUCOSE - OLIVERA DOCKED DEVICE Routine 01/04/2025 9:[address] HEAD WO CON MANJULA 01/04/2025 3:45 PM CDT POCT GLUCOSE - OLIVERA DOCKED DEVICE Routine 01/04/2025 2:00 PM CDT POCT GLUCOSE - OLIVERA DOCKED DEVICE Routine 01/04/2025 9:40 AM CDT BLOOD GAS, VENOUS STAT 01/04/2025 8:3 8 AM CDT POCT GLUCOSE - OLIVERA DOCKED DEVICE Routine 01/04/2025 6:00 AM CDT CBC, AUTO, NO DIFF Routine 01/04/2025 1: 38 AM CDT BASIC METABOLIC PANEL Routine 01/04/2025 1:38 AM CDT POCT GLUCOSE - OLIVERA DOCKED DEVICE Routine 01/03/2025 11:41 PM CDT POCT GLUCOSE - OLIVERA DOCKED DEVICE Routine 01/03/2025 7:25 PM CDT POCT ACUTE VENOUS PANEL Routine 01/03/2025 4:07 AM CDT CBC, AUTO, NO DIFF Routine 01/03/2025 4: 00 AM CDT BASIC METABOLIC PANEL Routine 01/03/2025 4:00 AM CDT VITAMIN B-12 Routine 01/03/2025 4:[address], AUTO Routine 01/03/2025 4:00 AM CDT LDH, LACTATE DEHYDROGENASE Routine 01/03/2025 4:00 AM CDT HAPTOGLOBIN, QUANT Routine 01/03/2025 4: 00 AM CDT IRON SAT PANEL (IRON,IBC,%SAT) Routine 01/03/2025 4:00 AM CDT FOLIC ACID SERUM Routine 01/03/2025 4:00 AM CDT FERRITIN Routine 01/03/2025 4:00 AM CDT VANCOMYCIN TIMED 01/03/2025 4:00 AM CDT HEPATIC FUNCTION PANEL Routine 01/03/2025 4:00 AM CDT PHOSPHORUS, INORGANIC PHOSPHATE Routine 01/03/2025 4:00 AM CDT MAGNESIUM Routine 01/03/2025 4:00 AM CDT POCT GLUCOSE - OLIVERA DOCKED DEVICE Routine 01/03/2025 12:34 AM CDT POCT ACUTE VENOUS PANEL Routine 01/02/2025 11:11 PM CDT POCT GLUCOSE - OLIVERA DOCKED DEVICE Routine 01/02/2025 5:21 PM CDT POCT GLUCOSE - OLIVERA DOCKED DEVICE Routine 01/02/2025 10:59 AM CDT POCT ACUTE VENOUS PANEL Routine 01/02/2025 3:59 AM CDT HEPATIC FUNCTION PANEL Routine 01/02/2025 3:58 AM CDT PHOSPHORUS, INORGANIC PHOSPHATE Routine 01/02/2025 3:58 AM CDT MAGNESIUM Routine 01/02/2025 3:58 AM CDT BASIC METABOLIC PANEL Routine 01/02/2025 3:58 AM CDT CBC, AUTO, NO DIFF Routine 01/02/2025 3: 58 AM CDT POCT GLUCOSE - OLIVERA DOCKED DEVICE Routine 01/01/2025 11:40 PM CDT POCT ACUTE VENOUS PANEL Routine 01/01/2025 9:00 PM CDT POCT GLUCOSE - OLIVERA DOCKED DEVICE Routine 01/01/2025 6:05 PM CDT USE ECHOCARDIOGRAM W CON Routine 01/01/2025 12:18 PM CDT POCT GLUCOSE - OLIVERA DOCKED DEVICE Routine 01/01/2025 9:14 AM CDT HC INFECT AGENT DETECT OPTICAL Nurse Collected Priority 01/01/2025 4:10 AM CDT LEGIONELLA AG URINE Nurse Collected Priority 01/01/2025 4:10 AM CDT HC URINALYSIS AUTO W/MICRO Nurse Collected Priority 01/01/2025 4:10 AM CDT HC MRSA AMP Nurse Collected Priority 01/01/2025 4:09 AM CDT RESPIRATORY PCR PANEL 2 Nurse Collected Priority 01/01/2025 4:09 AM CDT CULTURE, BACTERIA, BLOOD Routine 01/01/2025 3:16 AM CDT PROTHROMBIN TIME, VENOUS Routine 01/01/2025 3:16 AM CDT CALCIUM, IONIZED Routine 01/01/2025 3:16 AM CDT LACTIC ACID Routine 01/01/2025 3:16 AM CDT CBC W/DIFF AUTOMATED Routine 01/01/2025 3:08 AM CDT THYROID STIM HORMONE TSH Routine 01/01/2025 3:08 AM CDT TROPONIN, QUANT Routine 01/01/2025 3:08 AM CDT HEPATIC FUNCTION PANEL Routine 01/01/2025 3:08 AM CDT PHOSPHORUS, INORGANIC PHOSPHATE Routine 01/01/2025 3:08 AM CDT MAGNESIUM Routine 01/01/2025 3:08 AM CDT BASIC METABOLIC PANEL Routine 01/01/2025 3:08 AM CDT PROCALCITONIN (PCT) STAT 01/01/2025 3 :08 AM CDT PRO-BRAIN NATRIURETIC PEPTIDE STAT 01/01/2025 3:08 AM CDT POCT ACUTE VENOUS PANEL Routine 01/01/2025 3:05 AM CDT XR CHEST PORTABLE STAT 01/01/2025 3:0 5 AM CDT POCT GLUCOSE - OLIVERA DOCKED DEVICE Routine 01/01/2025 2:30 AM CDT from Last 3 Months Results * (ABNORMAL) POCT glucose (01/07/2025 11:49 AM CDT) Only the most recent of22 resultswithin the time period is included. GLUCOSE POC 173(H) 70 - 109 01/07/2025 11:57 AM CDT [facility] 01/07/2025 11:4 9 AM CDT us Jad Bell MD POCT ORDERABLES - DEVICE Fin al Result [facility] [address] [place] [address], [id number] * (ABNORMAL) ARTERIAL BLOOD GAS (01/07/2025 2:37 AM CDT) PH ARTERIAL 7.43 7.35 - 7.45 01/07/2025 2:43 AM CDT [facility] PCO2 58.3(H) 35.0 - 45.0 MMHG 01/07/2025 2:43 AM CDT [facility] PO2 128.0(H) 83.0 - 108.0 MMHG 01/07/2025 2:43 AM CDT [facility] BICARB ARTERIAL 37.6(H) 22 - 26 MMOL/L 01/07/2025 2:43 AM CDT [facility] TOTAL CO2 ARTERIAL 39.4(H) 23 - 27 MMOL/L 01/07/2025 2:43 AM CDT [facility] BE/BASE EXCESS 11.6(H) 0 - 2 MMOL/L 01/07/2025 2:43 AM CDT [facility] O2 Saturation 99(H) 95 - 98 % 01/07/2025 2:43 AM CDT [facility] TREY TEST N/A 01/07/2025 2:37 AM CDT [facility] OXYGEN STATUS no 01/07/2025 2:37 AM CDT [facility] DRAW SITE ARTERIAL RIGHT BRACHIAL 01/07/2025 2:37 AM CDT [facility] 01/07/2025 2:37 AM CDT us Travis Richardson MD LABORATORY Final Resul t [facility] [address] [place] [address], [id number] * (ABNORMAL) BASIC METABOLIC PANEL (01/07/2025 2:31 AM CDT) Only the most recent of5 resultswithin the time period is included. SODIUM S/P/B 134(L) 136 - 145 MMOL/L 01/07/2025 3:14 AM CDT [facility] POTASSIUM S/P/B 4.3 3.5 - 5.1 MMOL/L 01/07/2025 3:14 AM CDT [facility] CHLORIDE S/P/B 94(L) 97 - 115 MMOL/L 01/07/2025 3:14 AM CDT [facility] CO2 37.4(H) 21.0 - 32.0 MMOL/L 01/07/2025 3:14 AM CDT [facility] GLUCOSE 170(H) 74 - 106 MG/DL 01/07/2025 3:14 AM CDT [facility] BUN 31(H) 7 - 18 MG/DL 01/07/2025 3:14 AM CDT [facility] CREATININE S/P/B 0.92 0.55 - 1.02 MG/DL 01/07/2025 3:14 AM CDT [facility] CALCIUM S/P/B 9.0 8.5 - 10.1 MG/DL 01/07/2025 3:14 AM CDT [facility] ANION GAP 2.6 2.0 - 10.0 MMOL/L 01/07/2025 3:14 AM CDT [facility] OSMOLALITY (CALC) 289 MOSM/KG 025 3:14 AM CDT [facility] Comment:REFERENCE RANGE NOT ESTABLISHED GFR ESTIMATE 70(L) >90 ML/MIN/1. 73 M2 01/07/2025 3:14 AM CDT [facility] GFR NOTES GFR REFERENCE S: 01/07/2025 3:14 AM CDT [facility] Comment: THE ESTIMATED GFR IS CALCULATED USING THE 2020 CKD-EPI EQUATION. THE FOLLOWING CATEGORIES FOR GRADING RENAL FUNCTION ARE RECOMMENDED BY THE INTERNATIONAL SOCIETY OF NEPHROLOGY (KDIGO 2012 CLINICAL PRACTICE GUIDELINE). G1,NORMAL OR HIGH: >89 ml/min/1.73 m2 G2,MILDLY DECREASED: 60-89 ml/min/1.73 m2 G3A,MILDLY TO MODERATELY DECREASED: 45-59 ml/min/1.73 m2 G3B,MODERATELY TO SEVERELY DECREASED: 30-44 ml/min/1.73 m2 G4,SEVERELY DECREASED: 15-29 ml/min/1.73 m2 G5,KIDNEY FAILURE: <15 ml/min/1.73 m2 01/07/2025 2:31 AM CDT Jad Bell MD LABORATORY Final Result [facility] [address] [place] [address], [id number] * (ABNORMAL) CBC W/DIFF AUTOMATED (01/07/2025 2:31 AM CDT) Only the most recent of4 resultswithin the time period is included. WBC 14.38(H) 4.00 - 10.80 x10'3/uL 01/07/2025 2:45 AM CDT [facility] RBC 3.28(L) 4.10 - 5.40 x10'6/uL 01/07/2025 2:45 AM CDT [facility] HGB 10.2(L) 12.0 - 16.0 G/DL 01/07/2025 2:45 AM CDT [facility] HCT 33.1(L) 36.0 - 47.0 % 01/07/2025 2:45 AM CDT [facility] MCV 100.9(H) 78.0 - 100.0 FL 01/07/2025 2:45 AM CDT [facility] MCH 31.1(H) 27.0 - 31.0 PG 01/07/2025 2:45 AM CDT [facility] MCHC 30.8(L) 33.0 - 36.0 G/DL 01/07/2025 2:45 AM CDT [facility] RDW 12.9 11.5 - 14.5 % 01/07/2025 2:45 AM CDT [facility] PLT 269 150 - 350 x10'3/uL 01/07/2025 2:45 AM CDT [facility] MPV 11.0(H) 7.4 - 10.4 FL 01/07/2025 2:45 AM CDT [facility] DIFFERENTIAL TYPE AUTOMATED DIFFERENTIAL 01/07/2025 2:45 AM CDT [facility] SEG NEUTROPHILS 79.6 % 2:45 AM CDT [facility] LYMPHOCYTES 11.8 % 01/07/2025 2:45 AM CDT [facility] MONOCYTES 6.9 % 01/07/2025 2:45 AM CDT [facility] EOSINOPHILS 0.1 % 01/07/2025 2:45 AM CDT [facility] BASOPHILS 0.1 % 01/07/2025 2:45 AM CDT [facility] IMMATURE GRANS % 1.5 % 01/08/20 2:45 AM CDT [facility] ABS. NEUTROPHILS 11.45(H) 1.60 - 8.30 x10'3/uL 01/07/2025 2:45 AM CDT [facility] ABS. LYMPHOCYTES 1.69 0.80 - 4.70 x10'3/uL 01/07/2025 2:45 AM CDT [facility] ABS. MONOCYTES 0.99 0.00 - 1.50 x10'3/uL 01/07/2025 2:45 AM CDT [facility] ABS. EOSINOPHILS 0.02 0.00 - 0.40 x10'3/uL 01/07/2025 2:45 AM CDT [facility] ABS. BASOPHILS 0.02 0.00 - 0.20 x10'3/uL 01/07/2025 2:45 AM CDT [facility] ABS. IMMATURE GRANULOCYTES 0.21(H) 0.00 - 0.03 x10'3/uL 01/07/2025 2:45 AM CDT [facility] ABS. NUCLEATED RBC'S 0.00 0.00 - 0.01 x10'3/uL 01/07/2025 2:45 AM CDT [facility] NRBC % 0.0 % 01/07/2025 2:45 AM CDT [facility] 01/07/2025 2:31 AM CDT Jad Bell MD LABORATORY Final Result Performing Organization Address [facility] Co de Phone Number [facility] [address] [place] [address], [phone] * MAGNESIUM (01/07/2025 2:31 AM CDT) Only the most recent of6 resultswithin the time period is included. MAGNESIUM 1.8 1.6 - 2.6 MG/DL 01/07/2025 3:14 AM CDT [facility] 01/07/2025 2:31 AM CDT us Jad Bell MD LABORATORY Final Result Performing Organization Address City/[facility] Co de Phone Number [facility] [address] [place] [address], [place] [phone] * (ABNORMAL) Blood gas, venous (01/06/2025 2:44 PM CDT) Only the most recent of4 resultswithin the time period is included. PH VENOUS 7.36 7.32 - 7.42 01/06/2025 3:02 PM CDT [facility] PCO2 VENOUS 72.6(HH) 41.0 - 51.0 MMHG 01/06/2025 3:02 PM CDT [facility] Comment: CRITICAL RESULT, SPECIMEN DATE, TIME WERE READ BACK BY MAY [id number] AT [id number] 4.. [facility][1] PO2 VENOUS 71.7(H) 25.0 - 40.0 MM HG 01/06/2025 3:02 PM CDT [facility] BICARB VENOUS 39.9(H) 24 - 28 MMOL/L 01/06/2025 3:02 PM CDT [facility] TOTAL CO2 VENOUS 42.2(H) 25.0 - 29.0 MMOL/L 01/06/2025 3:02 PM CDT [facility] BASE EXCESS VENOUS 12.5(H) 0 - 2 MMOL/L 01/06/2025 3:02 PM CDT [facility] O2 SAT VENOUS 94(H) <75 % 01/06/2025 3:02 PM CDT [facility] 01/06/2025 2:44 PM CDT Jad Bell MD LABORATORY Final Result [facility] [address] [place] [address], [place] [phone] * (ABNORMAL) COMPREHENSIVE METABOLIC PANEL (01/06/2025 1:56 AM CDT) Only the most recent of2 resultswithin the time period is included. SODIUM S/P/B 137 136 - 145 MMOL/L 01/06/2025 2:32 AM CDT [facility] POTASSIUM S/P/B 3.6 3.5 - 5.1 MMOL/L 01/06/2025 2:32 AM CDT [facility] CHLORIDE S/P/B 91(L) 97 - 115 MMOL/L 01/06/2025 2:32 AM CDT [facility] CO2 43.2(H) 21.0 - 32.0 MMOL/L 01/06/2025 2:32 AM CDT [facility] GLUCOSE 159(H) 74 - 106 MG/DL 01/06/2025 2:32 AM CDT [facility] BUN 34(H) 7 - 18 MG/DL 01/06/2025 2:32 AM CDT [facility] CREATININE S/P/B 0.86 0.55 - 1.02 MG/DL 01/06/2025 2:32 AM CDT [facility] CALCIUM S/P/B 9.0 8.5 - 10.1 MG/DL 01/06/2025 2:32 AM CDT [facility] BILIRUBIN TOTAL S/P/B 0.5 0.2 - 1.0 MG/DL 01/06/2025 2:32 AM CDT [facility] ALKALINE PHOSPHATASE S/P/B 63 50 - 130 U/L 01/06/2025 2:32 AM CDT [facility] AST 35 15 - 37 U/L 01/06/2025 2:32 AM CDT [facility] ALT 31 13 - 56 U/L 01/06/2025 2:32 AM CDT [facility] TOTAL PROTEIN S/P/B 5.8(L) 6.4 - 8.2 G/DL 01/06/2025 2:32 AM CDT [facility] ALBUMIN S/P/B 2.6(L) 3.4 - 5.0 G/DL 01/06/2025 2:32 AM CDT [facility] ANION GAP 2.8 2.0 - 10.0 MMOL/L 01/06/2025 2:32 AM CDT [facility] OSMOLALITY (CALC) 295 MOSM/KG 025 2:32 AM CDT [facility] Comment:REFERENCE RANGE NOT ESTABLISHED GFR ESTIMATE 76(L) >90 ML/MIN/1. 73 M2 01/06/2025 2:32 AM CDT [facility] GFR NOTES GFR REFERENCE S: 01/06/2025 2:32 AM CDT [facility] Comment: THE ESTIMATED GFR IS CALCULATED USING THE 2020 CKD-EPI EQUATION. THE FOLLOWING CATEGORIES FOR GRADING RENAL FUNCTION ARE RECOMMENDED BY THE INTERNATIONAL SOCIETY OF NEPHROLOGY (KDIGO 2012 CLINICAL PRACTICE GUIDELINE). G1,NORMAL OR HIGH: >89 ml/min/1.73 m2 G2,MILDLY DECREASED: 60-89 ml/min/1.73 m2 G3A,MILDLY TO MODERATELY DECREASED: 45-59 ml/min/1.73 m2 G3B,MODERATELY TO SEVERELY DECREASED: 30-44 ml/min/1.73 m2 G4,SEVERELY DECREASED: 15-29 ml/min/1.73 m2 G5,KIDNEY FAILURE: <15 ml/min/1.73 m2 01/06/2025 1:56 AM CDT Jad Bell MD LABORATORY Final Result Performing Organization Address City/[facility]/ZIP Co de Phone Number [facility] [address] [place] [address], [id number] * PHOSPHORUS, INORGANIC PHOSPHATE (01/06/2025 1:56 AM CDT) Only the most recent of5 resultswithin the time period is included. PHOSPHORUS 2.9 2.5 - 4.9 MG/DL 01/06/2025 2:32 AM CDT [facility] 01/06/2025 1:56 AM CDT us Jad Bell MD LABORATORY Final Result [facility] [address] [place] [address], [id number] * CT HEAD WO CON (01/04/2025 3:45 PM CDT) Anatomical Region Laterality Modality Head Computed Tomogra phy 01/04/2025 5:00 PM CDT Impressions 01/04/2025 5:01 PM CDT IMPRESSION: No CT evidence of an acute intracranial abnormality. Referred By: PROVIDER NONE Interpreted By: Eloy Hannah MD, 01/04/2025 5:00 PM Narrative 01/04/2025 5:01 PM CDT [address] [address] EXAMINATION: CT HEAD WO CON, 01/04/2025 5:00 PM TECHNIQUE: Computed tomographic images of the head were obtained without intravenous contrast. Additional coronal and sagittal reformatted images were generated. A dose lowering technique was used for this procedure, which may include, but is not limited to, dose reduction technique, automated exposure control, the use of iterative reconstruction, and ALARA (As Low As Reasonably Achievable) / Image Gently techniques. HISTORY: Encephalopathy COMPARISON: None available FINDINGS: There is no acute intracranial hemorrhage. There is no extra-axial fluid collection. Preserved ramirez-white matter differentiation. The ventricles are normal in size. The basal cisterns appear normal. Orbital contents appear normal. Paranasal sinuses and mastoid air cells are well-aerated. No acute fracture nor destructive process of the visualized osseous structures. Procedure Note Eloy Hannah MD - 01/04/[address] [address] EXAMINATION: CT HEAD WO CON, 01/04/2025 5:00 PM TECHNIQUE: Computed tomographic images of the head were obtained withoutintravenous contrast. Additional coronal and sagittal reformatted imageswere generated. A dose lowering technique was used for this procedure,which may include, but is not limited to, dose reduction technique,automated exposure control, the use of iterative reconstruction, and ALARA(As Low As Reasonably Achievable) / Image Gently techniques. HISTORY: Encephalopathy COMPARISON: None available FINDINGS: There is no acute intracranial hemorrhage. There is noextra-axial fluid collection. Preserved ramirez-white matterdifferentiation. The ventricles are normal in size. The basal cisternsappear normal. Orbital contents appear normal. Paranasal sinuses andmastoid air cells are well-aerated. No acute fracture nor destructiveprocess of the visualized osseous structures. IMPRESSION: No CT evidence of an acute intracranial abnormality. Referred By: PROVIDER NONE Interpreted By: Eloy Hannah MD, 01/04/2025 5:00 PM Jad Bell MD CT Final Result * (ABNORMAL) CBC, AUTO, NO DIFF (01/04/2025 1:38 AM CDT) Only the most recent of3 resultswithin the time period is included. WBC 13.44(H) 4.00 - 10.80 x10'3/uL 01/04/2025 1:54 AM CDT [facility] RBC 3.26(L) 4.10 - 5.40 x10'6/uL 01/04/2025 1:54 AM CDT [facility] HGB 9.9(L) 12.0 - 16.0 G/DL 01/04/2025 1:54 AM CDT [facility] HCT 33.6(L) 36.0 - 47.0 % 01/04/2025 1:54 AM CDT [facility] MCV 103.1(H) 78.0 - 100.0 FL 01/04/2025 1:54 AM CDT [facility] MCH 30.4 27.0 - 31.0 PG 01/04/2025 1:54 AM CDT [facility] MCHC 29.5(L) 33.0 - 36.0 G/DL 01/04/2025 1:54 AM CDT [facility] RDW 13.2 11.5 - 14.5 % 01/04/2025 1:54 AM CDT [facility] PLT 230 150 - 350 x10'3/uL 01/04/2025 1:54 AM CDT [facility] MPV 10.1 7.4 - 10.4 FL 01/04/2025 1:54 AM CDT [facility] 01/04/2025 1:38 AM CDT us Derrick Velarde MD LABORATORY Final Result [facility] [address] [place] [address], [id number] * (ABNORMAL) POCT ACUTE VENOUS PANEL (01/03/2025 4:07 AM CDT) Only the most recent of5 resultswithin the time period is included. SODIUM WHOLE BLOOD 140 138 - 146 mmol/L 01/03/2025 4:11 AM CDT [facility] POTASSIUM WHOLE BLOOD 3.5 3.5 - 4.9 mmol/L 01/03/2025 4:11 AM CDT [facility] CA IONIZED WH BLOOD 1.13 1.12 - 1.32 mmol/L 01/03/2025 4:11 AM CDT [facility] POC PH VENOUS 7.383 7.31 - 7.41 01/03/2025 4:11 AM CDT [facility] POC PCO2 VENOUS 88.1(H) 41.0 - 51.0 MMHG 01/03/2025 4:11 AM CDT [facility] POC PO2 VENOUS 36 25 - 40 MMHG 01/03/2025 4:11 AM CDT [facility] POC HCO3 VENOUS 52.5(H) 23 - 28 MMOL/L 01/03/2025 4:11 AM CDT [facility] POC TCO2 VENOUS >50(H) 24 - 29 MMOL/L 01/03/2025 4:11 AM CDT [facility] POC BASE EXCESS VENOUS 27(H) 0 - 3 MMOL/L 01/03/2025 4:11 AM CDT [facility] POC HEMATOCRIT 34(L) 38 - 51 % 01/03/2025 4:11 AM CDT [facility] TIME TEST WAS PERFORMED: 407 01/03/2025 4:11 AM CDT [facility] 01/03/2025 4:07 AM CDT us Derrick Velarde MD POCT ORDERABLES - DEVICE Final R esult Performing Organization Address [facility] de Phone Number [facility] [address] [place] [address], [place] [phone] * (ABNORMAL) IRON SAT PANEL (IRON,IBC,%SAT) (01/03/2025 4:00 AM CDT) IRON 24(L) 50 - 170 MCG/DL 01/03/2025 5:23 AM CDT [facility] IRON BINDING CAPACITY 236(L) 250 - 450 MCG/DL 01/03/2025 5:23 AM CDT [facility] IRON SATURATION 10 % 5:23 AM CDT [facility] Comment:REFERENCE RANGE NOT ESTABLISHED 01/03/2025 4:00 AM CDT us Derrick Velarde MD LABORATORY Final Result Performing Organization Address [facility] Co de Phone Number [facility] [address] [place] [address], [place] [phone] * VITAMIN B-12 (01/03/2025 4:00 AM CDT) VITAMIN B12 S/P/B 464 193 - 986 PG/ML 01/03/2025 5:06 AM CDT [facility] 01/03/2025 4:00 AM CDT us Derrick Velarde MD LABORATORY Final Result Performing Organization Address [facility] Co de Phone Number [facility] [address] [place] [address], [id number] * (ABNORMAL) RETICULOCYTE CT, AUTO (01/03/2025 4:00 AM CDT) % RETICULOCYTE COUNT 3.8(H) 0.6 - 2.3 % 01/03/2025 4:29 AM CDT [facility] ABSOLUTE RETICULOCYTE 0.12(H) 0.02 - 0.10 x10'6/uL 01/03/2025 4:29 AM CDT [facility] IMMATURE RETIC FRACTION 20.9(H) 3.0 - 15.9 % 01/03/2025 4:29 AM CDT [facility] RETIC HGB 27.6(L) 28.0 - 35.0 PG 01/03/2025 4:29 AM CDT [facility] 01/03/2025 4:00 AM CDT us Derrick Velarde MD LABORATORY Final Result Performing Organization Address [facility] Co de Phone Number [facility] [address] [place] [address], [place] [phone] * (ABNORMAL) HAPTOGLOBIN, QUANT (01/03/2025 4:00 AM CDT) HAPTOGLOBIN 266.0(H) 30.0 - 200.0 MG/DL 01/03/2025 5:23 AM CDT [facility] 01/03/2025 4:00 AM CDT us Derrick Velarde MD LABORATORY Final Result Performing Organization Address [facility]/ZIP Co de Phone Number [facility] [address] [place] [address], [place] [phone] * (ABNORMAL) LDH, LACTATE DEHYDROGENASE (01/03/2025 4:00 AM CDT) LDH 318(H) 84 - 246 UNITS/L 01/03/2025 5:23 AM CDT [facility] 01/03/2025 4:00 AM CDT us Derrick Velarde MD LABORATORY Final Result Performing Organization Address [facility] de Phone Number [facility] [address] [place] [address], [place] [phone] * (ABNORMAL) HEPATIC FUNCTION PANEL (01/03/2025 4:00 AM CDT) Only the most recent of3 resultswithin the time period is included. BILIRUBIN TOTAL S/P/B 0.6 0.2 - 1.0 MG/DL 01/03/2025 5:23 AM CDT [facility] BILIRUBIN DIRECT S/P/B 0.2 0.0 - 0.2 MG/DL 01/03/2025 5:23 AM CDT [facility] ALKALINE PHOSPHATASE S/P/B 73 50 - 130 U/L 01/03/2025 5:23 AM CDT [facility] AST 54(H) 15 - 37 U/L 01/03/2025 5:23 AM CDT [facility] ALT 28 13 - 56 U/L 01/03/2025 5:23 AM CDT [facility] TOTAL PROTEIN S/P/B 6.3(L) 6.4 - 8.2 G/DL 01/03/2025 5:23 AM CDT [facility] ALBUMIN S/P/B 2.6(L) 3.4 - 5.0 G/DL 01/03/2025 5:23 AM CDT [facility] 01/03/2025 4:00 AM CDT Praveen Morrow MD LABORATORY Final Result Performing Organization Address [facility] Co de Phone Number [facility] [address] [place] [address], [place] [phone] * FOLIC ACID SERUM (01/03/2025 4:00 AM CDT) FOLATE 9.3 3.1 - 17.5 NG/ML 01/03/2025 5:06 AM CDT [facility] 01/03/2025 4:00 AM CDT Derrick Velarde MD LABORATORY Final Result Performing Organization Address [facility] de Phone Number [facility] [address] [place] [address], [place] [phone] * Vancomycin Random Level (01/03/2025 4:00 AM CDT) VANCOMYCIN RANDOM 25.1 MCG/ML 01/03/2025 8:36 AM CDT [facility] Comment:REFERENCE RANGE NOT ESTABLISHED 01/03/2025 4:00 AM CDT Praveen Morrow MD LABORATORY Final Result Performing Organization Address [facility] de Phone Number [facility] [address] [place] [address], [place] [phone] * (ABNORMAL) FERRITIN (01/03/2025 4:00 AM CDT) FERRITIN 272.8(H) 8.0 - 252.0 NG/ML 01/03/2025 5:23 AM CDT [facility] 01/03/2025 4:00 AM CDT Derrick Velarde MD LABORATORY Final Result [facility] [address] [place] [address], [id number] * USE ECHOCARDIOGRAM W CON (01/01/2025 12:18 PM CDT) Anatomical Region Laterality Modality NA Echocardiogram 01/01/2025 10:5 7 AM CDT Narrative 01/01/2025 12:49 PM CDT Echocardiography Report Pat.Name: MILDRED CASANOVA Pat.ID: [id number] .Date: 01/01/2025 Refer.MD: [id number], NONE, PROVIDER Exam Time: 10:57:00 AM Study Type:ECHO W/CONTRAST COMPLETE Height: 65.8 in Weight: 238 lb BSA: 2.15 m2 Age: 8 1960,64Y Sex: F BP: 110/67 HR: 78 bpm Sonogrphr: Micah Foy [facility] Pat. Stat.:Inpatient Room: ICU A-11 CPT - 4: C8929 Reason for Study:hypoxia History / Clinical:hypoxia Procedures: 2D, M-mode, Doppler, Color Flow, Definity was used to enhance endocardial definition. ++++++++++++++++++++++++++++++++++++ SUMMARY: ++++++++++++++++++++++++++++++++++++ The left ventricular systolic function is normal. Left ventricular diastolic function is not reliably assessed. Right ventricular systolic function is normal. Mild aortic valve sclerosis. Trace mitral regurgitation. Mild tricuspid regurgitation. ++++++++++++++++++++++++++++++++++++ FINDINGS: ++++++++++++++++++++++++++++++++++++ LV: The left ventricular size is normal. The left ventricular systolic function is normal. The calculated ejection fraction is 62%. Left ventricular diastolic function is not reliably assessed. LVOT: The left ventricular outflow tract size is normal. RV: The right ventricular size is normal. Right ventricular systolic function is normal. IVS: Intraventricular septum is normal. LA: The left atrial volume is normal ( less than 34 ml/M2). RA: The right atrial size is normal. DIAMANTE: No evidence of pericardial effusion. AO: Normal aortic root. PA: The peak pulmonary artery systolic pressure is estimated to be approximately 55 mmHg. PVn: Pulmonary veins are normal. SVn: Systemic veins not well visualized. AV: No evidence of aortic valve stenosis. No evidence of aortic valve regurgitation. Mild aortic valve sclerosis. MV: Trace mitral regurgitation. No evidence of mitral stenosis. Myxomatous degeneration of mitral valve. PV: Structurally normal pulmonic valve. Trace pulmonic regurgitation. No evidence of pulmonic valve stenosis. TV: Structurally normal tricuspid valve. Mild tricuspid regurgitation. No evidence of tricuspid valve stenosis. ++++++++++++++++++++++++++++++++++++ MEASUREMENTS: ++++++++++++++++++++++++++++++++++++ DOPPLER LVOT LVOTpkPG 5.2 mmHg LVOTmnPG 2.5 mmHg LVOTpkVel 114 cm/s (70-110)* LVOT SV 74 ml LVOT TVI 22.9 cm AV Forward Flow AV TVI 25.8 cm AV pkPG 9 mmHg AV pkVel 146 cm/s (100-170) Area (TVI) 2.88 cm2 (3-5)* AV mnVel 82.3 cm/s Area (Darrion) 2.53 cm2 (3-5)* AV mnPG 3.5 mmHg MV Forward Flow MV DeTm 281 msec MV P1/2t 82 msec (30-60)+* MVA P1/2t 2.68 cm2 (4-6)* MV pkE 138 cm/s (60-130)* TV Regurg Flow TV pkPG 53 mmHg TV pkVel 365 cm/s (30-70)+* Lat E' Lat e 8.27 cm/s Lat E/E' Lat E/e 16.7 Med E' Med e 6.41 cm/s Med E/E' Med E/e 21.5 Aortic Valve Aortic Valve Ar 1.34 Aortic Valve Ve 0.78 AV DI Value 0.9 DEXTER (VTI) Index Value 1.34 LV Mass 2D Value 168 g LV Mass [id number] Value 78.1 g/m2 Right Ventricle Right Ventricle 8.84 cm/s 2D Left Ventricle LVIDd 4.48 cm (3.6-5.2) LV EF(Bi-Plane) 61.9 % (55-75) LVIDs 2.92 cm (2.3-3.9) LVPW LVPWd 1.05 cm Ventricular Septum IVSd 1.1 cm Aorta Ao Asc 3.8 cm (zsc 3.8)* LVOT LVOT 2.03 cm Ratios IVS LA Biplane LAVol I BP 30.2 ml/m2 MMODE Left Atrium LAID 4.5 cm (1.9-4)* Ratios LA/Ao 1.45 (0.87-1.1)* Aorta Ao Rt 3.1 cm (2-3.7) <Electronic Signature> 01/01/2025 12:49 PM Yuri Lauren M.D. Procedure Note Yuri Lauren MD - 01/01/2025 Echocardiography Report Pat.Name: MILDRED CASANOVA Pat.ID: [id number] .Date: 01/01/2025 Refer.: [id number], NONE, PROVIDER Exam Time: 10:57:00 AM Study Type:ECHO W/CONTRAST COMPLETE Height: 65.8 in Weight: 238 lb BSA: 2.15 m2 Age: 8 1960,64Y Sex: F BP: 110/67 HR: 78 bpm Sonogrphr: Micah Foy TAMMY Pat. Stat.:Inpatient Room: ICU A-11 CPT - 4: C8929 Reason for Study:hypoxia History / Clinical:hypoxia Procedures: 2D, M-mode, Doppler, Color Flow, Definity was used to enhance endocardial definition. ++++++++++++++++++++++++++++++++++++ SUMMARY: ++++++++++++++++++++++++++++++++++++ The left ventricular systolic function is normal. Left ventricular diastolic function is not reliably assessed. Right ventricular systolic function is normal. Mild aortic valve sclerosis. Trace mitral regurgitation. Mild tricuspid regurgitation. ++++++++++++++++++++++++++++++++++++ FINDINGS: ++++++++++++++++++++++++++++++++++++ LV: The left ventricular size is normal. The left ventricular systolic function is normal. The calculated ejection fraction is 62%. Left ventricular diastolic function is not reliably assessed. LVOT: The left ventricular outflow tract size is normal. RV: The right ventricular size is normal. Right ventricular systolic function is normal. IVS: Intraventricular septum is normal. LA: The left atrial volume is normal ( less than 34 ml/M2). RA: The right atrial size is normal. DIAMANTE: No evidence of pericardial effusion. AO: Normal aortic root. PA: The peak pulmonary artery systolic pressure is estimated to be approximately 55 mmHg. PVn: Pulmonary veins are normal. SVn: Systemic veins not well visualized. AV: No evidence of aortic valve stenosis. No evidence of aortic valve regurgitation. Mild aortic valve sclerosis. MV: Trace mitral regurgitation. No evidence of mitral stenosis. Myxomatous degeneration of mitral valve. PV: Structurally normal pulmonic valve. Trace pulmonic regurgitation. No evidence of pulmonic valve stenosis. TV: Structurally normal tricuspid valve. Mild tricuspid regurgitation. No evidence of tricuspid valve stenosis. ++++++++++++++++++++++++++++++++++++ MEASUREMENTS: ++++++++++++++++++++++++++++++++++++ DOPPLER LVOT LVOTpkPG 5.2 mmHg LVOTmnPG 2.5 mmHg LVOTpkVel 114 cm/s (70-110)* LVOT SV 74 ml LVOT TVI 22.9 cm AV Forward Flow AV TVI 25.8 cm AV pkPG 9 mmHg AV pkVel 146 cm/s (100-170) Area (TVI) 2.88 cm2 (3-5)* AV mnVel 82.3 cm/s Area (Darrion) 2.53 cm2 (3-5)* AV mnPG 3.5 mmHg MV Forward Flow MV DeTm 281 msec MV P1/2t 82 msec (30-60)+* MVA P1/2t 2.68 cm2 (4-6)* MV pkE 138 cm/s (60-130)* TV Regurg Flow TV pkPG 53 mmHg TV pkVel 365 cm/s (30-70)+* Lat E' Lat e 8.27 cm/s Lat E/E' Lat E/e 16.7 Med E' Med e 6.41 cm/s Med E/E' Med E/e 21.5 Aortic Valve Aortic Valve Ar 1.34 Aortic Valve Ve 0.78 AV DI Value 0.9 DEXTER (VTI) Index Value 1.34 LV Mass 2D Value 168 g LV Mass [id number] Value 78.1 g/m2 Right Ventricle Right Ventricle 8.84 cm/s 2D Left Ventricle LVIDd 4.48 cm (3.6-5.2) LV EF(Bi-Plane) 61.9 % (55-75) LVIDs 2.92 cm (2.3-3.9) LVPW LVPWd 1.05 cm Ventricular Septum IVSd 1.1 cm Aorta Ao Asc 3.8 cm (zsc 3.8)* LVOT LVOT 2.03 cm Ratios IVS LA Biplane LAVol I BP 30.2 ml/m2 MMODE Left Atrium LAID 4.5 cm (1.9-4)* Ratios LA/Ao 1.45 (0.87-1.1)* Aorta Ao Rt 3.1 cm (2-3.7) <Electronic Signature> 01/01/2025 12:49 PM Yuri Lauren M.D. us Praveen Morrow MD ECHO Final Result * STREP PNEUMO AG URINE (01/01/2025 4:10 AM CDT) S. PNEUMONIAE URINARY AG NEGATIVE NEGATIVE 01/01/2025 11:46 AM CDT [facility] Comment: PRESUMPTIVE NEGATIVE FOR PNEUMOCOCCAL PNEUMONIA, SUGGESTING NO CURRENT OR RECENT PNEUMOCOCCAL INFECTION. INFECTION DUE TO STREPTOCOCCUS PNEUMONIA CANNOT BE RULED OUT SINCE THE ANTIGEN PRESENT IN THE SAMPLE MAY BELOW THE DETECTION LIMIT OF THE TEST. SPECIMEN TYPE URINE CLEAN CATCH 01/01/2025 4:11 AM CDT [facility] URINE SPECIMEN OBTAINED BY CLEAN CATCH PROCEDURE / Unknown 01/01/2025 4:10 AM CDT Praveen Morrow MD MICROBIOLOGY - GENERAL ORDERAB LES Final Result Performing Organization Address [facility] Co de Phone Number [facility] [address] [place] [address], [id number] * LEGIONELLA AG URINE (01/01/2025 4:10 AM CDT) LEGIONELLA ANTIGEN (URINE) NEGATIVE NEGATIVE 01/01/2025 11:46 AM CDT [facility] Comment: PRESUMPTIVE NEGATIVE FOR L. PNEUMOPHILA SEROGROUP 1 ANTIGEN IN URINE, SUGGESTING NO RECENT OR CURRENT INFECTION. INFECTION DUE TO LEGIONELLA CANNOT BE RULED OUT SINCE OTHER SEROGROUPS AND SPECIES MAY CAUSE DISEASE, ANTIGEN MAY NOT BE PRESENT IN URINE IN EARLY INFECTION, AND THE LEVEL OF ANTIIGNE PRESENT IN THE URINE MAY BE BELOW THE DETECTION LIMIT OF THE TEST. URINE SPECIMEN / Unknown 01/01/2025 4:10 AM CDT Praveen Morrow MD MICROBIOLOGY - GENERAL ORDERAB LES Final Result Performing Organization Address [facility] Co de Phone Number [facility] [address] [place] [address], [phone] * (ABNORMAL) URINALYSIS (01/01/2025 4:10 AM CDT) COLOR (U) LIGHT YELLOW 01/01/2025 4:26 AM CDT [facility] TRANSPARENCY CLEAR 01/01/2025 4:26 AM CDT [facility] SPECIFIC GRAVITY (U) 1.012 1.002 - 1.035 01/01/2025 4:26 AM CDT [facility] U PH 7.5 5 - 8 01/01/2025 4:26 AM CDT [facility] PROTEIN RANDOM (U) 30(A) NEGATIVE 01/01/2025 4:26 AM CDT [facility] GLUCOSE (U) NEGATIVE NEGATIVE MG/DL 01/01/2025 4:26 AM CDT [facility] KETONES MG/DL (U) 10(A) NEGATIVE 01/01/2025 4:26 AM CDT [facility] BILIRUBIN (U) NEGATIVE NEGATIVE 01/01/2025 4:26 AM CDT [facility] BLOOD (U) 3+(A) NEGATIVE 01/01/2025 4:26 AM CDT [facility] NITRITES NEGATIVE NEGATIVE 01/01/2025 4:26 AM CDT [facility] UROBILINOGEN 2.0(H) 0 - 1 EU/DL 01/01/2025 4:26 AM CDT [facility] LEUKOCYTES (U) 2+(A) NEGATIVE 01/01/2025 4:26 AM CDT [facility] RBC/HPF 90(H) 0 - 3 /HPF 01/01/2025 4:26 AM CDT [facility] WBC/HPF 31(H) 0 - 6 /HPF 01/01/2025 4:26 AM CDT [facility] BACTERIA (U) PRESENT /HPF 01/01/2025 4:26 AM CDT [facility] NON SQUAMOUS EPITHELIAL 2 /HPF 01/01/2025 4:26 AM T [facility] URINE SPECIMEN OBTAINED BY CLEAN CATCH PROCEDURE / Unknown 01/01/2025 4:10 AM CDT us Praveen Morrow MD URINE ORDERABLES Final Result Performing Organization Address City/[facility]/ZIP Co de Phone Number [facility] [address] [place] [id number], [id number] * STAPH SCREENING BY PCR (01/01/2025 4:09 AM CDT) [facility] SPECIMEN SOURCE RESPIRATORY, NOSE 01/01/2025 4:11 AM CDT [facility] MRSA BY PCR NASAL METHICILLIN RESISTANT STAPH AUREUS NOT DETECTED METHICILLIN RESISTANT STAPH AUREUS NOT DETECTED 01/01/2025 10:55 AM CDT [facility] NASAL STRUCTURE / Unknown 01/01/2025 4:09 AM CDT Praveen Morrow MD MICROBIOLOGY - GENERAL ORDERAB LES Final Result Performing Organization Address [facility] Co de Phone Number [facility] [address] [place] [address], [phone] * BIOFIRE PCR UPPER RESPIRATORY PROFILE (RESPIRATORY PCR PANEL 2) (01/01/2025 4:09 AM CDT) [facility] ADENOVIRUS PCR (RESP) NOT DETECTED NOT DETECTED 01/01/2025 5:20 AM CDT [facility] CORONAVIRUS 229E PCR (RESP) NOT DETECTED NOT DETECTED 01/01/2025 5:20 AM CDT [facility] CORONAVIRUS HKU1 PCR (RESP) NOT DETECTED NOT DETECTED 01/01/2025 5:20 AM CDT [facility] CORONAVIRUS NL63 PCR (RESP) NOT DETECTED NOT DETECTED 01/01/2025 5:20 AM CDT [facility] CORONAVIRUS OC43 PCR (RESP) NOT DETECTED NOT DETECTED 01/01/2025 5:20 AM CDT [facility] METAPNEUMOVIRUS PCR (RESP) NOT DETECTED NOT DETECTED 01/01/2025 5:20 AM CDT [facility] RHINOVIRUS/ENTEROV IRUS PCR (RESP) NOT DETECTED NOT DETECTED 01/01/2025 5:20 AM CDT [facility] INFLUENZA A PCR (RESP) NOT DETECTED NOT DETECTED 01/01/2025 5:20 AM CDT [facility] INFLUENZA B PCR (RESP) NOT DETECTED NOT DETECTED 01/01/2025 5:20 AM CDT [facility] PARAINFLUENZA 1 PCR (RESP) NOT DETECTED NOT DETECTED 01/01/2025 5:20 AM CDT [facility] PARAINFLUENZA 2 PCR (RESP) NOT DETECTED NOT DETECTED 01/01/2025 5:20 AM CDT [facility] PARAINFLUENZA 3 PCR (RESP) NOT DETECTED NOT DETECTED 01/01/2025 5:20 AM CDT [facility] PARAINFLUENZA 4 PCR (RESP) NOT DETECTED NOT DETECTED 01/01/2025 5:20 AM CDT [facility] RSV PCR (RESP) NOT DETECTED NOT DETECTED 01/01/2025 5:20 AM CDT [facility] B PARAPERTUSIS PCR (RESP) NOT DETECTED NOT DETECTED 01/01/2025 5:20 AM CDT [facility] BORDETELLA PERTUSSIS PCR (RESP) NOT DETECTED NOT DETECTED 01/01/2025 5:20 AM CDT [facility] CHLAMYDOPHILA PNEUMONIAE PCR (RESP) NOT DETECTED NOT DETECTED 01/01/2025 5:20 AM CDT [facility] MYCOPLASMA PNEUMONIAE PCR (RESP) NOT DETECTED NOT DETECTED 01/01/2025 5:20 AM CDT [facility] CORONAVIRUS SARS COV 2 PCR (RESP) NOT DETECTED NOT DETECTED 01/01/2025 5:20 AM CDT [facility] NASOPHARYNGEAL SWAB / Unknown 01/01/2025 4:09 AM CDT us Praveen Morrow MD MICROBIOLOGY - GENERAL ORDERAB LES Final Result [facility] [address] [place] [address], [place] [phone] * (ABNORMAL) PROTHROMBIN TIME, VENOUS (01/01/2025 3:16 AM CDT) Pathologist [facility] PROTIME 13.9(H) 9.4 - 12.5 SEC 01/01/2025 3:46 AM CDT [facility] INR 1.2(H) 0.8 - 1.1 01/01/2025 3:46 AM CDT [facility] 01/01/2025 3:16 AM CDT Praveen Morrow MD LABORATORY Final Result Performing Organization Address [facility]/ZIP Co de Phone Number [facility] [address] [place] [address], [phone] * LACTIC ACID - SINGLE (01/01/2025 3:16 AM CDT) [facility] LACTIC ACID VENOUS 1.8 0.4 - 2.0 MMOL/L 01/01/2025 3:45 AM CDT [facility] 01/01/2025 3:16 AM CDT Praveen Morrow MD LABORATORY Final Result Performing Organization Address City/[facility]/ZIP Co de Phone Number [facility] [address] [place] [address], [phone] * (ABNORMAL) CULTURE, BACTERIA, BLOOD (01/01/2025 3:16 AM CDT) Pathologist [facility] SPEC DESCRIPTION BLOOD 01/01/2025 2:48 AM CDT [facility] SPECIAL REQUESTS NO SPECIAL REQUEST 01/01/2025 2:48 AM CDT [facility] GRAM STAIN RESULT GRAM POSITIVE RODS IN AEROBIC BLOOD CULTURE 01/06/2025 8:30 AM CDT [facility] GRAM STAIN RESULT RESULTS PHONED TO AND READ BACK BY: [facility] MAY [id number] AT 1600 ON 01.05.25 BY [id number] 01/06/2025 8:30 AM CDT [facility] CULTURE RESULT DIPHTHEROIDS IN AEROBIC BLOOD CULTURE (AA) 01/12/2025 11:07 AM CDT [facility] CULTURE RESULT ANAEROBIC BOTTLE IS NEGATIVE IN 5 DAYS 01/12/2025 11:07 AM CDT [facility] BLOOD SPECIMEN OBTAINED FOR BLOOD CULTURE / Unknown 01/01/2025 3:16 AM CDT 01/01/2025 3:24 AM CDT Praveen Morrow MD MICROBIOLOGY - GENERAL ORDERAB LES Final Result Performing Organization Address [facility] Co de Phone Number [facility] [address] [place] [address], [phone] * (ABNORMAL) CALCIUM, IONIZED (01/01/2025 3:16 AM CDT) CALCIUM IONIZED 1.03(L) 1.15 - 1.33 MMOL/L 01/01/2025 3:26 AM CDT [facility] 01/01/2025 3:16 AM CDT Praveen Morrow MD LABORATORY Final Result Performing Organization Address City/[facility]/ZIP Co de Phone Number [facility] [address] [place] [address], [place] [phone] * PROCALCITONIN (PCT) (01/01/2025 3:08 AM CDT) Procalcitonin 0.03 0.00 - 0.49 NG/ML 01/01/2025 9:16 AM CDT [facility] 01/01/2025 3:08 AM CDT Praveen Morrow MD LABORATORY Final Result Performing Organization Address [facility]/ZIP Co de Phone Number [facility] [address] [place] [address], [place] [phone] * (ABNORMAL) PRO-BRAIN NATRIURETIC PEPTIDE (01/01/2025 3:08 AM CDT) PRO-B TYPE NATRIURETIC PEPTIDE 1,722(H) <125 PG/ML 01/01/2025 4:35 AM CDT [facility] Comment: AGE INDEPENDENT: <300 PG/ML HAS A 99% NEGATIVE PREDICTIVE VALUE FOR EXCLUDING ACUTE CHF <50 YEARS: >450 PG/ML IS CONSISTENT WITH ACUTE CHF 50-75 YEARS: >900 PG/ML IS CONSISTENT WITH ACUTE CHF >75 YEARS: >1800 PG/ML IS CONSISTENT WITH ACUTE CHF IN PATIENTS WITH RENAL INSUFFICIENCY (GFR <60), >1200 PG/ML YIELDS A DIAGNOSTIC SENSITIVITY AND SPECIFICITY OF 89% AND 72% FOR ACUTE CHF. 01/01/2025 3:08 AM CDT Praveen Morrow MD LABORATORY Final Result Performing Organization Address [facility] Co de Phone Number [facility] [address] [place] [address], [place] [phone] * TROPONIN, QUANT (01/01/2025 3:08 AM CDT) TROPONIN I HIGH SENSITIVITY 35 0 - 53 ng/L 01/01/2025 4:35 AM CDT [facility] 01/01/2025 3:08 AM CDT Praveen Morrow MD LABORATORY Final Result Performing Organization Address [facility] Co de Phone Number [facility] [address] [place] [address], [place] [phone] * THYROID STIM HORMONE, TSH (01/01/2025 3:08 AM CDT) TSH 2.400 0.358 - 3.740 uIU/ML 01/01/2025 4:35 AM CDT [facility] Comment: ASSAY PERFORMED BY CHEMILUMINESCENCE METHODOLOGY USING SIEMENS DIMENSION VISTA REAGENT. PATIENT RESULTS DETERMINED BY ASSAYS USING DIFFERENT MANUFACTURERS FOR METHODS MAY NOT BE COMPARABLE. 01/01/2025 3:08 AM CDT Praveen Morrow MD LABORATORY Final Result [facility] [address] [place] [address], [place] [phone] * XR CHEST PORTABLE (01/01/2025 3:05 AM CDT) Anatomical Region Laterality Modality Chest Radiographic Nneka ging 01/01/2025 3:28 AM CDT Impressions 01/01/2025 3:30 AM CDT IMPRESSION: ======== 1. Prominent interstitial markings centrally in the chest bilaterally with no comparison available. Chronic scarring versus mild infiltrate. 2. Cardiomegaly Referred By: PROVIDER NONE Interpreted By: Reza Nelson MD, 01/01/2025 3:28 AM Narrative 01/01/2025 3:30 AM CDT [facility] [address] [place], [place] [address] Examination: Chest x-ray 1 view Exam Date/Time: 01/01/2025 3:04 AM Reason For Exam: dyspnea Comparison: None Technique: Single AP view of the chest was obtained. Findings: Heart size prominent. No large effusion. No pneumothorax. No consolidations. Pulmonary vasculature upper limits normal. No convincing focal infiltrates or consolidations. Prominent central interstitial markings bilaterally with no comparison available. ======== Procedure Note Reza Nelson MD - 01/01/[address] [address] Examination: Chest x-ray 1 view Exam Date/Time: 01/01/2025 3:04 AM Reason For Exam: dyspnea Comparison: None Technique: Single AP view of the chest was obtained. Findings: Heart size prominent. No large effusion. No pneumothorax. Noconsolidations. Pulmonary vasculature upper limits normal. No convincingfocal infiltrates or consolidations. Prominent central interstitialmarkings bilaterally with no comparison available. ======== IMPRESSION: ======== 1. Prominent interstitial markings centrally in the chest bilaterallywith no comparison available. Chronic scarring versus mild infiltrate. 2. Cardiomegaly Referred By: PROVIDER NONE Interpreted By: Reza Nelson MD, 01/01/2025 3:28 AM Praveen Morrow MD GENERAL IMAGING Final Result from Last 3 Months Insurance Advance Directives Documents on File Type Date Recorded Patient Manager Of Corporate Communications Expl anation DNR (Do Not Resuscitate) Documentation 01/11/2025 11:18 AM * Full Code (Latest Code Status on File) Date Activated Date Inactivated Comments 01/11/2025 11:48 AM * Full Code Date Activated Date Inactivated Comments 01/02/2025 2:13 PM 01/07/2025 10:53 PM * DNR Date Activated Date Inactivated Comments 01/01/2025 2:47 AM 01/02/2025 2:13 PM Care Teams Systems Integration Manager Relationship Specialty Start Date End Date Indio Yeager PA [address] [place] [phone] PCP - General PHYSICIAN HISTOPATHOLOGY TECHNICIAN 01/04/25
--- OUTSIDE RECORDS SUMMARY | 2025-01-19 22:35 | XMS_ITS | Encounter Summary ---
Author Organization [facility] Address [address] [place] [address] Phone Care Team Providers Care Syrup Blender Name Role Phone Travis Lr MD Primary Care Provider [phone] Carole Abel Unavailable Unavailab Carole Walsh Unavailable Unavailab Cassandra Vidal MD Unavailable Carole Abel Unavailable Unavailab le Reason for Visit * Reason Comments Medication Refill Encounter Details Date Type Department Care Team (Late st Contact Info) Description 07/02/2020 Refill [facility] [address] [place], [place] [address] Travis Lr MD #[address] [address] Medication Refill Social History Tobacco Use Types [...] Outpatient Visits 1 month ago Essential hypertension [facility] - Travis Peoples MD 5 months ago Type 2 diabetes mellitus with other specified complication, with long-term current useof insulin ([facility]) [facility] Travis Reyes MD 9 months ago Type 2 diabetes mellitus with other specified complication, with long-term current useof insulin ([facility]) [facility] Travis Reyes MD 1 year ago Coronary artery disease involving [place] heart with angina pectoris, unspecified vessel or lesion type ([facility]) [facility] Travis Peoples MD 1 year ago Type 2 diabetes mellitus with other specified complication, with long-term current use of insulin ([facility]) [facility] Alfreda BenitoAlma Zhang APN, FRONT END UI DEVELOPER Upcoming Appointments Future Appointments In 1 month Travis Lr MD [facility] SIGIFREDO Oliver In 1 month Cassandra Holt MD [facility] PBX INSPECTOR - Recent and Past Visits Recent Visits [...] - 19 11/22/2021 11/22/2021 11/22/2021 3:58 PM MAINTENANCE WELDER Assessment Noted Time PHQ-9 Depression Total Score: 8 05/15/20 2:12 PM CDT documented as of this encounter Care Teams Syrup Blender Relationship Specialty Start Date End Date Travis Lr MD #2 [facility] [address] [place] [address] PCP - General Family Medicine 08/08/15 09/30/24 Carole Abel LSW [place] Tie Buyer 12/08/20 03/18/21 Carole Abel LSW [place] Tie Buyer 07/26/21 01/22/22 Cassandra Holt MD #2 [facility] [address] [place] [address] Consulting Physician Endocrinology 04/10/22 11/09/24 Carole Abel LSW [place] Tie Buyer 06/19/23 08/26/23 documented as of this encounter
--- OUTSIDE RECORDS SUMMARY | 2025-01-19 22:35 | XMS_ITS | Encounter Summary ---
Author Organization [facility] Address [address] [place] [address] Phone Care Team Providers Care Aviation Project Engineer Name Role Phone Travis Lr MD Primary Care Provider [phone] Cassandra Holt MD Unavailable Reason for Visit * Reason Comments Medication Refill Encounter Details Date Type Department Care Team (Late st Contact Info) Description 12/28/2023 Refill [facility] #[address] [place] [address] Travis Lr MD #[address] [address] Medication Refill Social History Tobacco Use Types Packs/Day Years Used Date Smoking Tobacco: Former Cigarettes 0 03/16/2017 - 04/29/2017 Smokeless Tobacco: Never Alcohol Use Standard Drinks/Week Comments No 0 (1 standard drink = 0.6 oz pur e alcohol) [facility] Utilities Answer Date Recorded In the past 12 months has [employer] electric, gas, oil, or water company threatened [...] week 11/08/2023 How often do you attend temple or tenriism serv ices? Patient declined 11/08/2023 Do you belong to any clubs o r organizations such as temple groups, unions, fraternal or athletic groups, or [...] Total Score - Questions 1-9 0 06/24 [facility] of Occupat ional [facility] - Occupational Stress Questionnaire Answer Date [...] place to sleep or slept in a half-way (including now)? No 11/08/2023 Education Answer Date [...] PM CDT Medication(s) [facility] Chronic Medication Refill Standing Order [...] 05/12/23 [facility] 04/22/23 Telemedicine Travis Lr MD [facility] 01/21/23 Office Visit Travis Lr MD [facility] [place] Showing recent visits within past 365 [...] Author Transportation Transportation On track(07/31 1:09 PM DIRECTOR OF BUSINESS SYSTEMS) Carole Herrera LSW Note: Goal: Patient to obtain access to all needed medical services Anticipated Completion Date: In the next 3 months Patient's Preferred Goal: Standard Challenges/Barriers: Lack of knowledge of local resources Readiness to Change: Thinking about making a change Notify Care Team if: You have any issues completing goals outlined below Short Term Goals: [facility] to mail out information about [facility] [employer] transportation services \ Phone call to schedule in [facility] trips within 24 hours out of [facility] call within 72 hours. documented as of this encounter Visit Diagnoses Not on filedocumented in this encounter Additional Health Concerns Assessment Noted Time PHQ-9 Depression Total Score: 0 07/22/20 23 10:21 AM CDT documented as of this encounter Care Teams Aviation Project Engineer Relationship Specialty Start Date End Date Travis Lr MD #[address] [address] PCP - General Family Medicine 08/08/15 09/30/24 Cassandra Holt MD #[address] [phone] Consulting Physician Endocrinology 04/10/22 11/09/24 documented as of this encounter
--- OUTSIDE RECORDS SUMMARY | 2025-01-19 22:35 | XMS_ITS | Encounter Summary ---
Author Organization [facility] Address [address] [place] [address] Care Team Providers Care Technical Producer Name Role Phone Indio Yeager Primary Care Provider [phone] Reason for Visit * Auth/Cert (Routine) Specialty Diagnoses / Procedures Referred By Dayami pratt Referred To Contact Home Health Services Referral ID Status Reason Start Date Expiration Date Visits Re quested Visits Authorized [id number] 1 8 Encounter Details Date Type Department Care Team (Latest Contact Info) Description 01/18/2025 9:30 AM CDT Home Care Visit [facility] Home Care [facility] [address] [place], [place] [id number] Pascual Lorenzana S, PT [address] [place], [place] [id number] PT INITIAL EVALUATION Social History Tobacco Use Types Packs/Day Years Used Date Smoking Tobacco: Every Day Cigarettes Smokeless Tobacco: Never OASIS D0700: Social Isolation Answer Da te [...] materials from doctor or pharmacy Never 01/11/2025 [facility] Utilities Answer Date Recorded In the past 12 months has e electric, gas, oil, or water company [...] any time in the past 12 m [facility], were you homeless or living in a correction (including now)? No 01/05/2025 Comments Unknown Sex and Gender Information Value Date Recorded Sex Assigned at Female 01/03/2025 2:22 PM CDT Legal Sex Female 5:54 PM FIRE ALARM INSTALLER Gender Identity Not on file Sexual Orientation Not on file documented as of this encounter Last Filed Vital Signs Vital Sign Reading Time Taken Comments Blood Pressure 110/60 01/18/2025 9:57 AM CDT Pulse 62 01/18/2025 9:57 AM CDT Temperature 36.4 C (97.6 F) 01/18/2025 9:57 AM CDT Respiratory Rate 18 01/18/2025 9:57 AM CDT Oxygen Saturation 93% 01/18/2025 9:57 AM CDT 4l/nc Inhaled Oxygen Concentration - - Weight - - Height - - Body Mass Index - - documented in this encounter Functional Status * Are you deaf or do you have serious difficulty hearing Answer Date of Assessment Author Status No 01/05/2025 8:33 AM CDT Dottie Morel RN Active * Are you blind or do you have serious difficulty seeing, even when wearing glasses? Answer Date of Assessment Author Status No 01/05/2025 8:33 AM DANNYT Dottie Morel RN Active * Do you have serious difficulty walking or climbing stairs? Answer Date of Assessment Author Status Yes 01/05/2025 8:33 AM CDT Dottie Morel RN Active * Do you have difficulty dressing or bathing? Answer Date of Assessment Author Status Yes 01/05/2025 8:33 AM CDT Dottie Morel RN Active * Because of a physical, mental, or emotional condition, do you have difficulty doing errands alone such as visiting a doctor's office or shopping? Answer Date of Assessment Author Status Yes 01/05/2025 8:33 AM Dottie Grossman RN Active documented as of this encounter Mental Status * Because of a physical, mental, or emotional condition, do you have serious difficulty concentrating, remembering, or making decisions? Answer Entry Date Author Status Yes 01/05/2025 8:33 AM CDT Dottie Morel RN Active documented in this encounter Plan of Treatment Upcoming Encounters Date Type Department Care Team (Late st Contact Info) Description 01/20/2025 2:30 PM CDT Home Care Visit [facility] [address] [place] [address] Rosita Sommer LPN 01/21/2025 9:00 AM CDT Home Care Visit [facility] Home Care [place] [address] [place] [address] Katrin Cummings, FOUR SLIDE MACHINE SETTER 01/25/2025 1:00 PM CDT Home Care Visit [place] [address] [place] [address] Katrin Cummings, FOUR SLIDE MACHINE SETTER 01/26/2025 1:30 PM CDT Home Care Visit [place] [address] [place] [address] Angela Lcuas, RN 01/28/2025 1:00 PM CDT Home Care Visit [place] [address] [place] [address] Katrin Cummings, FOUR SLIDE MACHINE SETTER 02/01/2025 2:00 PM CDT Home Care Visit [place] [address] [place] [address] Katrin Cummings, FOUR SLIDE MACHINE SETTER 02/03/2025 9:00 AM CDT Home Care Visit [place] [address] [place] [address] nAgela Lucas, RN 02/04/2025 10:00 AM CDT Home Care Visit [place] [address] [place] [address] Yazan Cummingsia A, FOUR SLIDE MACHINE SETTER documented as of this encounter Visit Diagnoses Not on filedocumented in this encounter Home Health Visit - Care Plan Visit Details Visit Type -PT - Initial Jaki luation Discipline -Physical Therapy Problems Problem Description Start Date Status Goals Interve ntions Collaboration of Care Disciplines: PT Collaboration for safe care. 01/18/2025 Resolved on 01/18/2025 1 goal linked to scheduled/documen giles intervention 1 goal intervention scheduled/document ed in this visit Goals Goal Associated Problem Outcome Goal Met? Visit Notes Patient safety met through collaboration for safe care. Description: Clinicians will communicate patient care and safety needs during episode of care through 01/18. Collaboration of Care Completed Yes Interventions Intervention Associated Problem/Goal Status Variance Visit Notes Instruct Home Safety Description: Instruct patient on strategies/modificatio ns to home environment. Patient up as tolerated with walker or lesser device or no device as directed. Problem:Collaboration of Care Goal:Patient safety met through collaboration for safe care. Completed Pt educated on safety in home, safety with O2 and fall prevention. Encouraged use of 800# as needed. documented in this encounter Care Teams Technical Producer Relationship Specialty Start Date End Date Indio Yeager PA [address] [place] [phone] PCP - General PHYSICIAN RETENTION REPRESENTATIVE 01/04/25 documented as of this encounter
--- OUTSIDE RECORDS SUMMARY | 2025-01-19 22:35 | XMS_ITS | Encounter Summary ---
Author Organization [facility] Address [address] [place] [address] Phone Care Team Providers Care Graphic Technician Name Role Phone Travis Lr MD Primary Care Provider [phone] Cassandra Holt MD Unavailable Carole Abel [employer] RETAILER SALES CONSULTANT Unavailable Unavailab le Reason for Visit * Reason Comments Medication Refill Encounter Details Date Type Department Care Team (Late st Contact Info) Description 08/21/2022 Refill [facility] [address] [place] [address] Travis Lr MD #[address] [address] Medication Refill Social History Tobacco Use Types [...] Coronavirus/COVID-19? No / Unsure 07/31/2022 11:56 AM WINDOWS DESKTOP SUPPORT documented as of this encounter Miscellaneous Notes [...] 03/05/22 Office [facility] 11/28/21 Office Visit Alma Romero APRN, [facility] [place] 10/04/21 Office Visit Travis Lr MD [facility] Oliver Showing recent visits within past 365 days and meeting all other requirements Future Appointments Date Type Provider Dept 10/24/22 Appointment Travis Lr MD [facility] Showing future appointments within next 90 days and meeting all other requirements OWS DESKTOP SUPPORT documented in this encounter Plan of Treatment Not on file documented as of this encounter Visit Diagnoses Not on filedocumented in this encounter Additional Health Concerns Assessment Noted Time PHQ-9 Depression Total Score: 0 11/29/19 10:00 AM WINDOWS DESKTOP SUPPORT documented as of this encounter Care Teams Graphic Technician Relationship Specialty Start Date End Date Travis Lr MD [address] [address] [place] [address] PCP - General Family Medicine 08/08/15 09/30/24 Cassandra Holt MD #2 [facility] [address] [place] [address] Consulting Physician Endocrinology 04/10/22 11/09/24 Carole Abel LSW [place] Child Welfare Assistant 06/19/23 08/26/23 documented as of this encounter
--- OUTSIDE RECORDS SUMMARY | 2025-01-19 22:35 | XMS_ITS | Encounter Summary ---
Author Organization [facility] Address [address] [place] [address] Phone Care Team Providers Care Open Hearth Worker Name Role Phone Travis Lr MD Primary Care Provider Carole Abel Unavailable Unavailab Carole Walsh Unavailable Unavailab Cassandra Vidal MD Unavailable Carole Abel Unavailable Unavailab le Reason for Visit * Reason Onset Date Comments COVID-19 06/26/2020 preop testing Encounter Details Date Type Department Care Team (Late Contact Info) Description [facility]26[facility] [address] [place] [address] Zeyad Montejo MD #[address] [address] COVID-19 (preop testing) Social History Tobacco Use [...] - 19 11/22/2021 11/22/2021 11/22/2021 3:58 PM GUEST SERVICES Assessment Noted Time PHQ-9 Depression Total Score: 8 05/15/20 20 2:12 PM CDT documented as of this encounter Care Teams Open Hearth Worker Relationship Specialty Start Date End Date Travis Lr MD #2 [facility] [address] [place] [address] PCP - General Family Medicine 08/08/15 09/30/24 Carole Abel LSW [place] Environmental Conservation Professor 12/08/20 03/18/21 Carole Abel LSW [place] Environmental Conservation Professor 07/26/21 01/22/22 Cassandra Holt MD #2 [facility] [address] [place] [address] Consulting Physician Endocrinology 04/10/22 11/09/24 Carole Abel LSW [place] Environmental Conservation Professor 06/19/23 08/26/23 documented as of this encounter
--- OUTSIDE RECORDS SUMMARY | 2025-01-19 22:35 | XMS_ITS | Encounter Summary ---
Author Organization [facility] Address [address] [place] [address] Phone Care Team Providers Care Spudder Name Role Phone Travis Lr MD Primary Care Provider Cassandra Holt MD Unavailable Carole Abel TITLE I ASSISTANT Unavailable Unavailab le Reason for Visit * Reason Comments Medication Refill Encounter Details Date Type Department Care Team (Late st Contact Info) Description 07/22/2023 [facility]ill [facility] #[address] [place] [address] Travis Lr MD #[address] [address] Medication Refill Social History Tobacco Use Types [...] Transportation On track(07/31 1:09 PM DIRECTOR OF FIRST IMPRESSIONS) Carole Herrera LSW Note: Goal: Patient to obtain access to all needed medical services Anticipated Completion Date: In the next 3 months Patient's Preferred Goal: Standard Challenges/Barriers: Lack of knowledge of local resources Readiness to Change: Thinking about making a change Notify Care Team if: You have any issues completing goals outlined below Short Term Goals: ANA CM to mail out information about [facility] Transit transportation services \ Phone call to schedule in [facility] trips within 24 hours out of county call within 72 hours. documented as of this encounter Visit Diagnoses Not on filedocumented in this encounter Additional Health Concerns Assessment Noted Time PHQ-9 Depression Total Score: 0 07/22/20 23 10:21 AM CDT documented as of this encounter Care Teams Spudder Relationship Specialty Start Date End Date Travis Lr MD #2 [facility] [address] [place] [address] PCP - General Family Medicine 08/08/15 09/30/24 Cassandra Holt MD #2 [facility] [address] [place] [address] Consulting Physician Endocrinology 04/10/22 11/09/24 Carole Abel LSW [place] Woodworking Shop Laborer 06/19/23 08/26/23 documented as of this encounter
--- OUTSIDE RECORDS SUMMARY | 2025-01-19 22:35 | XMS_ITS | Encounter Summary ---
Author Organization [facility] Address [address] [facility] [place] [address] Phone Care Team Providers Care Facilities Officer Name Role Phone Travis Lr MD Primary Care Provider [phone] Cassandra Holt MD Unavailable Carole Abel DRUM WORKER Unavailable Unavailab le Reason for Visit * Reason Onset Date Comments Medication Refill 06/15/2023 Encounter Details Date Type Department Care Team (Late st Contact Info) Description 06/15/2023 Refill [facility] [address] [place] [address] Travis Lr MD #[address] [address] Medication Refill Social History Tobacco Use Types [...] documented as of this encounter Care Teams Facilities Officer Relationship Specialty Start Date End Date Travis Lr MD [facility]2 [facility] [address] [place] [address] PCP - General Family Medicine 08/08/15 09/30/24 Cassandra Holt MD #2 [facility] [address] [place] [address] Consulting Physician Endocrinology 04/10/22 11/09/24 Carole Abel LSW [place] Medical Collector 06/19/23 08/26/23 documented as of this encounter
--- OUTSIDE RECORDS SUMMARY | 2025-01-19 22:35 | XMS_ITS | Encounter Summary ---
Author Organization [facility] Address [address] [place] [address] Phone Care Team Providers Care Coal Passer Name Role Phone Travis Lr MD Primary Care Provider [phone] Carole Abel Unavailable Unavailab Carole Walsh Unavailable Unavailab le Cassandra Holt MD Unavailable Carole Abel Unavailable Unavailab le Reason for Visit * Reason Comments Medication Refill Encounter Details Date Type Department Care Team (Late st Contact Info) Description 06/18/2020 Refill [facility] - [place] #[address] [place] [address] Cassandra Holt MD #[address] [address] Medication Refill Social History [...] Med Name: B-D ROSE MARIE ULTRFIN PEN [id number] [id number]]400 Each Sig: USE FOUR TIMES DAILY Next appt: 06/20/2020 documented in this encounter Plan of Treatment Not on file documented as of this encounter Visit Diagnoses Not on filedocumented in this encounter Additional Health Concerns Infection Onset Date Last Indicated Resolved Time COVID - 19 11/22/2021 11/22/2021 11/22/2021 3:58 PM ICE PLATFORM SUPERVISOR Assessment Noted Time PHQ-9 Depression Total Score: 8 05/15/20 20 2:12 PM CDT documented as of this encounter Care Teams Coal Passer Relationship Specialty Start Date End Date Travis Lr MD #2 [facility] [address] [place] [address] PCP - General Family Medicine 08/08/15 09/30/24 Carole Abel LSW [place] Range Rider 12/08/20 03/18/21 Carole Abel LSW [place] Range Rider 07/26/21 01/22/22 Cassandra Holt MD #2 [facility] [address] [place] [address] Consulting Physician Endocrinology 04/10/22 11/09/24 Carole Abel LSW [place] Range Rider 06/19/23 08/26/23 documented as of this encounter
--- OUTSIDE RECORDS SUMMARY | 2025-01-19 22:35 | XMS_ITS | Referral Summary ---
Author Organization [facility] Address [address] [place] [address] Care Team Providers Care Party Coordinator Name Role Phone Mare Castano MD Primary Care Provider [phone] Allergies Active Allergy Reactions Criticality Noted Date [...] CAD (coronary artery disease) 03/04/2022 Overview (03/04/2022): UT 2002 Depression 03/04/2022 DM (diabetes mellitus) 03/04/2022 [...] How often do you attend chur or yazidism services? Never 04/23/2023 Do you belong to any clubs o r organizations such as methodist groups, unions, fraternal or athletic groups, or [...] place to sleep or slept in a residential (including now)? No 04/23/2023 Personal Safety Answer [...] eGFR 72 mL/min/1. 73 m2 [facility]IQUE ([place]) Comment: Interpretive Data Reference Interval Normal [...] MD LAB BLOOD ORDERABLES Final Result [facility] [address] [facility] [place] [address] * (ABNORMAL) Hemoglobin A1c (03/15/2017 4:55 AM CDT) Hgb A1C 9.4(H) 4.0 - 6.0 % [facility]UST Comment: Interpretive Data Hemoglobin A1c ADA Interpretive Guidelines <7% Glycemia controlled >8% Hyperglycemia, additional action recommended Dale Immunochemical Method Current interpretive data was last revised on 2016 Testing performed by: [facility], [place] [address] Estimated Average Glucose 223 mg/dL [facility] RUST Comment:Testing performed by : [facility], [place] [address] Blood specimen (specimen) 03/15/2017 4:55 AM CDT 03/15/2017 12:39 PM CDT Geovanni Pna MD LAB BLOOD ORDERABLES Final Resu lt Performing Organization Address City/State/[facility] Co de Phone Number KOFIDILMA [phone] [address] Department [place] [address] * (ABNORMAL) Lipid panel (03/14/2017 10:54 PM [...] LAB BLOOD ORDERABLES Final Resu lt SOURAV [id number] [address] Department [place] [address] from Last 3 Months or Most Recently Relevant to Health Maintenance [facility] [place] Advance Directives For more information, please contact: [phone] * Full Code (Latest Code Status on File) Date Activated Date Inactivated Comments 04/23/2023 2:10 AM 04/24/2023 5:55 PM Care Teams Party Coordinator Relationship Specialty Start Date End Date Mare Castano MD PCP - General Family Medicine 04/24/23
--- OUTSIDE RECORDS SUMMARY | 2025-01-19 22:35 | XMS_ITS | Encounter Summary ---
Author Organization [facility] Address [address] [place] [address] Phone Care Team Providers Care Lumber Tallier Name Role Phone Travis Lr MD Primary Care Provider [phone] Cassandra Holt MD Unavailable Carole Abel PRINT TRAFFIC MANAGER Unavailable Unavailab le Reason for Visit * Reason Comments Medication Refill Encounter Details Date Type Department Care Team (Late st Contact Info) Description 04/10/2023 Refill [facility] #[address] [place] [address] Travis rL MD #[address] [address] Medication Refill Social History Tobacco Use Types [...] reordered on 04/10/2023 by Alma Romero APRN, INTELLIGENCE OFFICER BASIC. 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
[2025-01-19 22:36] VITALS: BP 118/74; PULSE 82; RESP 16
[2025-01-19 22:40] VITALS: BP 112/73; PULSE 81; RESP 12; TEMP 34.6
--- NOTE | 2025-01-19 23:18 | PC.NURSE ---
Pt to ED via EMS. ERP in room upon arrival. EMS states Ketamine and Etomidate were given in route, as well as an made Epi drip. Barry IV were started by EMS. Pt was intubated upon arrival, a 7.0. 23 at the lip. EKG was done and completed at 2230. NG placed, at 65 left Jyoti. ERP confirmed placement with stethoscope. Temp bloom cath placed, 16fr . Meds given per ERP at bedside, confirmed with provider dosages. Cath team at bedside, took pt up to construction or leak gang laborer with RT.
[2025-01-20] VITALS (46 sets, daily range): BP systolic 78–177; BP diastolic 51–109; PULSE 75–103; RESP 6–39; TEMP 36.3–38.2; O2SAT 38–100; BMI 46.4
--- NOTE | 2025-01-20 | ECHO_ITS ---
Patient Info Name: Mildred Logan Age: 64 years : 1960 Gender: Female Ht: 62 in Wt: 258 lbs BSA: 2.33 m2 HR: 89 bpm BP: 106 / 65 mmHg Heart Rhythm: Sinus Rhythm Technical Quality: Fair Exam Date: 01/20/2025 9:21 AM Exam Location: Echo Lab Patient Status: Inpatient Admit Date: 01/19/2025 Staff Ordering Physician: Monica Carvajal MD (aisha/nay) Mincemeat Maker: Tabatha Michael RDCS Attending Provider: Monica Carvajal MD (aisha/nay) Referring Physician: Wei ENCARNACION; Exam Type: CA echo doppler color flow Study Info Indications - Cardiac Arrest. STEMI Complete two-dimensional, color flow and Doppler transthoracic echocardiogram is performed. Summary 1. Complete two-dimensional, color flow and Doppler transthoracic echocardiogram is performed. 2. Left ventricular systolic function is normal, estimated at 60-65%. 3. There is mildly increased left ventricular wall thickness. 4. The left ventricular diastolic function is grade I diastolic dysfunction. 5. Right ventricular chamber dimension is enlarged. 6. Right ventricular systolic function is reduced. 7. There is mild mitral valve regurgitation. 8. There is mild tricuspid valve regurgitation. 9. No pulmonary hypertension, estimated pulmonary arterial systolic pressure is 45 mmHg. Left Ventricle Left ventricular chamber dimension is normal. Left ventricular systolic function is normal, estimated at 60-65%. There is mildly increased left ventricular wall thickness. Left ventricular septal wall motion is normal. The left ventricular diastolic function is grade I diastolic dysfunction. Right Ventricle Right ventricular chamber dimension is enlarged. Right ventricular systolic function is reduced. Left Atria Left atrial chamber dimension is normal. Right Atria Right atrial chamber dimension is normal. Aortic Valve The aortic valve is trileaflet. There is no aortic valve sclerosis. There is no aortic valve stenosis. There is no aortic valve regurgitation. Pulmonic Valve The pulmonic valve is normal. There is no pulmonic valve stenosis. There is no pulmonic regurgitation. Mitral Valve The mitral valve has normal leaflets. There is no mitral valve stenosis. There is mild mitral valve regurgitation. Tricuspid Valve The tricuspid valve leaflets are normal. There is no significant tricuspid valve stenosis. There is mild tricuspid valve regurgitation. No pulmonary hypertension, estimated pulmonary arterial systolic pressure is 45 mmHg. Pericardium/Pleural The pericardium appears normal. There is no pericardial effusion. Inferior Vena Cava Normal inferior vena cava with >50% collapse upon inspiration consistent with normal right atrial pressure, 5 mmHg. Aorta The aortic root size at the sinus of Valsalva is normal. The prox ascending aorta size is normal. Left Ventricular Outflow Tract Name Value Normal LVOT 2D LVOT Diameter 2.0 cm LVOT Doppler LVOT Peak Gradient 6 mmHg LVOT Mean Gradient 3 mmHg LVOT VTI 17 cm LVOT VTI/AV VTI Ratio 0.9 LVOT Stroke Volume 55 ml LVOT CO 13.9 l/min LVOT CI 5.9 l/min/m2 Pulmonic Valve Name Value Normal RVOT Doppler RVOT Peak Gradient 3 mmHg PV Doppler PV Peak Gradient 5 mmHg Mitral Valve Name Value Normal MV Doppler MV Decel [place] 281 cm/s2 MV PHT 75 ms MV Area (PHT) 2.9 cm2 4.0-5.0 MV Diastolic Function MV E Peak Velocity 73 cm/s MV A Peak Velocity 79 cm/s MV E/A 0.9 MV Decel Time 258 ms MV Annular TDI MV E/e' (Septal) 12.4 <=8.0 MV E/e' (Lateral) 11.9 <=8.0 MV E/e' (Average) 12.2 Tricuspid Valve Name Value Normal TV Regurgitation Doppler TR Peak Velocity 311 cm/s TR Peak Gradient 39 mmHg Estimated PAP/RSVP RA Pressure 5 mmHg <=5 PA Systolic Pressure 45 mmHg <36 RV Systolic Pressure 44 mmHg <36 Aortic Valve Name Value Normal AV Doppler AV Peak Velocity 130 cm/s AV Peak Gradient 7 mmHg AV Mean Gradient 3 mmHg AV VTI 19 cm AV Area (Cont Eq VTI) 2.9 cm2 >=3.0 AV Area (Cont Eq Darrion) 3.0 cm2 AV Regurgitation 2D LVOT Area 3.2 cm2 Ventricles Name Value Normal LV Dimensions 2D/MM IVS Diastolic Thickness (2D) 3.0 cm 0.6-1.0 LVID Diastole (2D) 4.6 cm 3.8-5.2 LVIW Diastolic Thickness (2D) 1.0 cm 0.6-0.9 LVID Systole (2D) 3.3 cm 2.2-3.5 LVOT Diameter 2.0 cm LV Mass (2D Cubed) 460.37 g 67.00-162.00 LV Mass Index (2D Cubed) 197 g/m2 43-95 Relative Wall Thickness (2D) 0.43 LV Fractional Shortening/Ejection Fraction 2D/MM LV Fractional Shortening (2D) 29 % 27-45 LV EF (2D Teicholz) 56 % 54-74 LV Diastolic Volume (4C MOD) 87 ml LV EF (4C MOD) 72 % LV Diastolic Volume (2C MOD) 65 ml LV EF (2C MOD) 60 % LV Diastolic Volume (BP MOD) 81 ml 46-106 LV Diastolic Volume Index (BP MOD) 35 ml/m2 29-61 LV Systolic Volume (BP MOD) 27 ml 14-42 LV Systolic Volume Index (BP MOD) 11 ml/m2 8-24 LV EF (BP MOD) 67 % 54-74 LV Diastolic Length (4C) 7.9 cm LV Systolic Length (4C) 6.7 cm LV Stroke Volume (4C MOD) 63 ml Atria Name Value Normal LA Dimensions LA Volume (4C A-L) 35 ml LA Volume (BP A-L) 47 ml RA Dimensions RA Area (4C) 15.7 cm2 <=18.0 Report Signatures
--- NOTE | 2025-01-20 00:22 | ED_ITS ---
HPI - CPR General Chief Complaint: Chest Pain Stated Complaint: POST-ARREST STEMI History of Present Illness HPI narrative: 64-year-old patient with a past medical history including cardiac disease with stents, hypertension, hyperlipidemia, diabetes, tobacco dependence. Patient presents to the emergency department status post cardiac arrest. Collateral information provided by EMS. Patient had a witnessed cardiac arrest at home by her who called 911. Patient had about a 10 minute down time and was intubated in field with return of spontaneous circulation after about 10 minutes of CPR efforts. Patient was noted to have a STEMI on post Rosc EKG and transported to our facility for further evaluation and lab analyst activation. Patient was beginning to become responsive in the EMS transit and she was sedated with etomidate and ketamine. She has hypotension and presently on a epinephrine infusion at 150 cc/hour. Patient was intubated with a 7.0 endotracheal tube with good capnography and transported via ALS. Patient had approximately 1 hour transit between EMS arriving to scene and arriving to our facility in addition to the 10 minutes of down time with cardiac arrest. She presents and brought back in the room 14 for further resuscitation. specialist employee labor relations and reduction plant supervisor was spoken to prior to arrival. Related Data Home Medications ?Medication ?Instructions ?Recorded ?Confirmed ?Last Taken ?Type atorvastatin 20 mg tablet 20 mg PO DAILY 12/31/24 Unknown History buspirone 5 mg tablet 5 mg PO BID 12/31/24 Unknown History carvedilol 6.25 mg tablet 6.25 mg PO Q12H 12/31/24 Unknown History citalopram 40 mg tablet 40 mg PO DAILY 12/31/24 Unknown History gabapentin 300 mg capsule 300 mg PO TID 12/31/24 Unknown History hydrocodone 10 mg-acetaminophen 1 tablet PO QID 12/31/24 Unknown History 325 mg tablet hydroxyzine pamoate 50 mg capsule 50 mg PO TID PRN anxiety 12/31/24 Unknown History insulin NPH isoph U-100 human 100 24 unit subcut QAM 12/31/24 Unknown History unit/mL (3 mL) subcutaneous pen (Novolin N FlexPen) insulin aspart U-100 100 unit/mL 15 unit subcut QAM 12/31/24 Unknown History (3 mL) subcutaneous pen (Novolog FlexPen U-100 Insulin aspart) tizanidine 2 mg tablet 2 mg PO TID 12/31/24 Unknown History Allergies Allergy/AdvReac Type Severity Reaction Status Date / Time Sulfa (Sulfonamide Allergy Other Verified 12/31/24 18:19 Antibiotics) Review of Systems Review of Systems: ROS unobtainable: Yes unobtainable due to medical condition [facility] Past Medical History Medical History Chronic low back pain COPD (chronic obstructive pulmonary disease) Panic attacks Depression Anxiety Social History Social History Social History: smoker Smoking packs per day: 0.5 Smoking cigarettes per day: 10.0 Years smoked: 50 Smoking pack-years: 25.00 Smoking status: Current every day smoker Tobacco type: cigarettes Exam Narrative: GENERAL: Mechanically ventilated, intermittent jerking of all extremities briefly, cold extremities, morbidly obese HEAD: [Normocephalic, atraumatic.] EYES: Pupils are 2 mm and reactive ENT: Endotracheal tube, 7.0 to a depth of 23 cm at the lip NECK: Supple. CHEST: Coarse bibasilar breath sounds with ventilation, no spontaneous breathing HEART: [Regular rate and rhythm]. Cold extremities ABDOMEN: Protuberant abdomen with various bruising EXTREMITIES: 2+ pitting edema to the extremities, cold legs SKIN: Cold and dry extremities NEURO: GCS 3 Course Vital Signs Vital signs: Vital Signs Respiratory Rate 14 01/19/25 22:26 Blood Pressure 78/56 L 01/19/25 22:26 Temperature 34.6 C L 01/19/25 22:40 Pulse Rate 81 01/19/25 22:40 Respiratory Rate 12 01/19/25 22:40 Blood Pressure 112/73 01/19/25 22:40 Oxygen Delivery Mechanical Ventilation 01/19/25 22:35 MDM - Cardiac Arrest/CPR MDM Narrative Medical decision making narrative: 64-year-old female with history of hypertension, hyperlipidemia, diabetes, COPD, cardiac disease with stents. Patient presents status post cardiac arrest with return of spontaneous circulation. EMS noted the patient had a STEMI on post resuscitation EKG in field. EKG was transmitted and independently reviewed here and does appear to have an inferior lateral OH. patient has approximately 1 hour transit time between EMS arrival and transport our facility. Upon receiving EMS call I did activate the lab analyst and spoke to the director imaging Dr. Carvajal who was ready and awaiting patient's arrival to the emergency department. Recommendations to administer 180 mg of Brilinta, 5000 units of IV heparin, 324 mg of aspirin through NG tube. Patient arrives to the emergency department, hypotensive blood pressure 78/56, mechanically ventilated, GCS of 3, hypothermic with temp fully at 34.6? C. She does have what appears to be cold extremities but palpable pulses. Norepinephrine was initiated at 10 in addition to an epinephrine infusion at 150 cc/hour. Repeat EKG obtained shows inferior lateral STEMI. Vital signs have improved after resuscitative efforts with fluids and pressors. Blood pressure 112/73. Pulse of 81, respiratory rate of 12 with ventilator settings. Quality Control Tester was made aware of patient's arrival to the emergency department and lab analyst was mobilized. Patient was prepped here in the emergency department and transported upstairs for cardiac catheterization without any further delay. No family present to inform them of patient's status. Patient will be admitted to the ICU after catheterization with cardiology. Medical Records Attestation: I reviewed the patient's medical records. Critical Care Time Critical Care Time Critical Care Time: Yes Total Critical Care Time: 36 Discharge Plan Discharge Clinical Impression: Cardiac arrest, ST elevation (STEMI) myocardial infarction Patient Disposition: Still a Patient Condition: Critical Time of Disposition: 22:51
--- NOTE | 2025-01-20 00:30 | ECG_ITS ---
Test Date: 2025-01-20 01:29:33 Measurements Intervals [place] Rate: 78 P: 81 IN: 123 QRS: -26 QRSD: 80 T: 78 QT: 353 QTc: 403 Interpretive Statements SINUS RHYTHM PROBABLE INFERIOR MYOCARDIAL INFARCTION [35 ms Q WAVE IN II/aVF], PROBABLY OLD Compared to ECG 01/19/2025 22:30:37 Myocardial infarct finding now present Short IN interval no longer present Electronically Signed On 01-21-2025 18:55:30 CDT by Dariel Tompkins
--- NOTE | 2025-01-20 00:39 | P.HP_ITS ---
H&P: HPI History of Present Illness Date/Time: 01/20/25 00:39 Chief Complaint: STEMI Narrative: Patient intubated at time of evaluation, therefore, all history obtained by medical team members and patient's chart. Mildred is a 64 year old female with CAD, hypertension, hyperlipidemia, COPD with chronic hypoxic respiratory failure on home oxygen, tobacco dependence who presented to [place] post arrest. Patient had a witnessed arrest by her at home, who called 911. Patient had approximately 10 minutes of down time before ROSC was achieved per EMS. Per EMS, the initial arresting rhythm with asystole. Intubated in the field. EMS EKG showed marked ST elevations in the inferior leads. Hypotensive upon arrival, on Epinephrine drip. Patient had approximately 1.5 hours between EMS arriving to scene and arriving to [place] ER. In the ED, she remained hypotensive with SBP in the 70s on Epi drip, and was started on Levophed drip. NG tube placed and patient given Brilinta. Heparin bolus administered. Review of Systems Review of Systems: ROS unobtainable: Yes unobtainable due to endotracheal tube PMFSH Past Medical History Medical History Chronic low back pain COPD (chronic obstructive pulmonary disease) Panic attacks Depression Anxiety Social History Social History Social History: smoker Smoking packs per day: 0.5 Smoking cigarettes per day: 10.0 Years smoked: 50 Smoking pack-years: 25.00 Smoking status: Current every day smoker Tobacco type: cigarettes Meds Home Medications and Allergies Home Medications ?Medication ?Instructions ?Recorded ?Confirmed ?Type atorvastatin 20 mg tablet 20 mg PO DAILY 12/31/24 History buspirone 5 mg tablet 5 mg PO BID 12/31/24 History carvedilol 6.25 mg tablet 6.25 mg PO Q12H 12/31/24 History citalopram 40 mg tablet 40 mg PO DAILY 12/31/24 History gabapentin 300 mg capsule 300 mg PO TID 12/31/24 History hydrocodone 10 mg-acetaminophen 1 tablet PO QID 12/31/24 History 325 mg tablet hydroxyzine pamoate 50 mg capsule 50 mg PO TID PRN anxiety 12/31/24 History insulin NPH isoph U-100 human 100 24 unit subcut QAM 12/31/24 History unit/mL (3 mL) subcutaneous pen (Novolin N FlexPen) insulin aspart U-100 100 unit/mL 15 unit subcut QAM 12/31/24 History (3 mL) subcutaneous pen (Novolog FlexPen U-100 Insulin aspart) tizanidine 2 mg tablet 2 mg PO TID 12/31/24 History Allergies Allergy/AdvReac Type Severity Reaction Status Date / Time Sulfa (Sulfonamide Allergy Other Verified 12/31/24 18:19 Antibiotics) Vital Signs Vital Signs - 24 hr 01/19/25 22:26 01/19/25 22:33 01/19/25 22:34 Temperature Pulse Rate Respiratory Rate 14 14 17 Blood Pressure 78/56 L Oxygen Delivery 01/19/25 22:35 01/19/25 22:35 01/19/25 22:35 Temperature Pulse Rate 73 76 Respiratory Rate Blood Pressure 118/74 118/74 Oxygen Delivery Mechanical Ventilation 01/19/25 22:36 01/19/25 22:40 Temperature 34.6 C L Pulse Rate 82 81 Respiratory Rate 16 12 Blood Pressure 118/74 112/73 Oxygen Delivery Exam Const: Other: Critically ill female patient, intubated on mechanical ventilation HENMT: Other: OETT in place Resp: Other: On mechanical ventilation Cardio: Rate: regular rate Rhythm: regular rhythm Neuro: Other: Not on sedation. No purposeful movements without sedation. Noted to be shivering. Assessment and Plan Assessment and plan (1) ST elevation (STEMI) myocardial infarction: Code(s): I21.3 - ST elevation (STEMI) myocardial infarction of unspecified site Status: Acute (2) Cardiac arrest: Code(s): I46.9 - Cardiac arrest, cause unspecified Status: Acute Plan 1. Inferior STEMI 2. Cardiac arrest. Initial arresting rhythm was asystole per EMS. 3. Shock, on pressors 4. CAD 5. Hypertension 6. Hyperlipidemia 7. COPD with chronic hypoxic respiratory failure on home oxygen 8. Tobacco dependence PLAN: -S/p primary PCI to the RCA with SUNNY x 1. LVEDP 18mmHg. Prior to stenting, patient intermittently went into VF and was defibrillated 5 times on photographic laboratory technician table. Electrically stable post stenting. -Continue ASA 81mg once daily indefinitely. -Continue Brilinta 90mg BID for at least 1 year post PCI. -Start high intensity statin. -Will start Amiodarone drip given VF requiring multiple defibrillations in photographic laboratory technician. -Wean off pressors as tolerated -Echocardiogram ordered and pending. -Will start hypothermia protocol. Patient's case/recommendations/plan discussed with ICU Physician (Dr. Jarrett) and Hospitalist service station manager (Avinash). Prognosis is guarded.
--- NOTE | 2025-01-20 00:48 | P.SEDATION_ITS ---
Moderate Sedation Note-Pt Data Patient Data Diagnosis: Inferior STEMI Present Complaint: Inferior STEMI Procedure to be performed/Plan: Primary PCI Allergies Allergy/AdvReac Type Severity Reaction Status Date / Time Sulfa (Sulfonamide Allergy Other Verified 12/31/24 18:19 Antibiotics) Home Medications ?Medication ?Instructions ?Recorded ?Confirmed ?Type atorvastatin 20 mg tablet 20 mg PO DAILY 12/31/24 History buspirone 5 mg tablet 5 mg PO BID 12/31/24 History carvedilol 6.25 mg tablet 6.25 mg PO Q12H 12/31/24 History citalopram 40 mg tablet 40 mg PO DAILY 12/31/24 History gabapentin 300 mg capsule 300 mg PO TID 12/31/24 History hydrocodone 10 mg-acetaminophen 1 tablet PO QID 12/31/24 History 325 mg tablet hydroxyzine pamoate 50 mg capsule 50 mg PO TID PRN anxiety 12/31/24 History insulin NPH isoph U-100 human 100 24 unit subcut QA 12/31/24 History unit/mL (3 mL) subcutaneous pen (Novolin N FlexPen) insulin aspart U-100 100 unit/mL 15 unit subcut [facility] 12/31/24 History (3 mL) subcutaneous pen (Novolog FlexPen U-100 Insulin aspart) tizanidine 2 mg tablet 2 mg PO TID 12/31/24 History Current Medications: Active Medications Aspirin (Aspirin 81 Mg Enteric Tablet) 81 mg PO QAM [facility] Atorvastatin Calcium (Atorvastatin 40 Mg Tablet) 80 mg PO DAILY [facility] Dextrose (Dextrose 50% 25 Gm/50 Ml Syringe) 12.5 gm IV PUSH PRN PRN; Protocol PRN Reason: Hypoglycemia Glucagon (Glucagon For Inj 1 Mg Vial) 1 mg IM PRN PRN; Protocol PRN Reason: Hypoglycemia Glucose (Glucose Oral Gel 15 Gm Of Glucse In 37.5 Gm Tube) 15 gm PO PRN PRN; Protocol PRN Reason: Hypoglycemia Epinephrine HCl 1 mg/ Dextrose 251 mls @ 37.65 mls/hr IV CONT .Q6H40M [facility]; Protocol Last Admin: 01/19/25 22:35 Dose: 9.96 mcg/min, 150 mls/hr Norepinephrine Bitartrate (Levophed 8 Mg/D5w 250 Ml) 8 mg in 250 mls @ 9.375 mls/hr IV CONT .Q24H [facility]; Protocol Last Admin: 01/19/25 22:35 Dose: 5 mcg/min, 9.38 mls/hr Phenylephrine HCl 50 mg/ (Sodium Chloride) 250 mls @ 12 mls/hr IV CONT .[id number] STA; Protocol Stop: 01/20/25 20:08 Amiodarone HCl/Dextrose (Nexterone 360 Mg/D5w 200 Ml) 360 mg in 200 mls @ 33.333 mls/hr IV CONT .Q6H ONE Stop: 01/20/25 06:29 Dextrose (Dextrose 5% 1,000 Ml) 1,000 mls @ 100 mls/hr IVPB PRN PRN; Protocol PRN Reason: Hypoglycemia Amiodarone HCl/Dextrose (Nexterone 360 Mg/D5w 200 Ml) 360 mg in 200 mls @ 16.667 mls/hr IV CONT .Q12H [facility] Insulin Aspart (Insulin Aspart (*Bkc) 100 Units/Ml) 3 - 6 units SUB-Q Q6HR [facility]; Protocol Multi-Ingred Cream/Lotion/Oil/Oint (Mineral Oil/White Petrolatum Ointment) 1 applic EACH EYE Q12HR [facility] Perflutren Lipid Microsphere (Perflutren Lipid Microspheres 1.5 Ml Vial Diluted To 10 Ml Total Volume) 0 ml IV PUSH ONCE PRN; Protocol PRN Reason: adequate visualization Stop: 01/23/25 00:37 Ticagrelor (Ticagrelor 90 Mg Tablet) 90 mg PO Q12HR [facility] Sedation/Anesthesia: No previous sedation/anesthesia problems (including family history). [facility] Past Medical History Medical History Chronic low back pain COPD (chronic obstructive pulmonary disease) Panic attacks Depression Anxiety Social History Social History Social History: smoker Smoking packs per day: 0.5 Smoking cigarettes per day: 10.0 Years smoked: 50 Smoking pack-years: 25.00 Smoking status: Current every day smoker Tobacco type: cigarettes Mod Sed Physical Exam Physical Exam Pre Procedural Exam: Normal: Heart Rate and Heart Rhythm and Variation: Appearance (Critically ill female), Airway (Intubated, on mechanical ventilation ), Lungs (Intubated, on mechanical ventilation ) and Neuro Exam (No purposeful movements noted off of sedation; shivering ) Hours since solid foods: 0 Hours since liquid intake: 0 Mallampati Classification: class IV (Unable to assess as patient already intubated ) Internal Medicine - PN: Obj Da Vital Signs Vital Signs: Vital Signs - 24 hr 01/19/25 22:26 01/19/25 22:33 01/19/25 22:34 Temperature Pulse Rate Respiratory Rate 14 14 17 Blood Pressure 78/56 L Oxygen Delivery 01/19/25 22:35 01/19/25 22:35 01/19/25 22:35 Temperature Pulse Rate 73 76 Respiratory Rate Blood Pressure 118/74 118/74 Oxygen Delivery Mechanical Ventilation 01/19/25 22:36 01/19/25 22:40 Temperature 34.6 C L Pulse Rate 82 81 Respiratory Rate 16 12 Blood Pressure 118/74 112/73 Oxygen Delivery Intake/Output Intake/Output: Intake & Output 01/17/25 01/18/25 01/19/25 01/20/25 23:59 23:59 23:59 23:59 Output Total 20 Balance -20 Meds/Results Medications: Active Medications Generic Name Dose Route Start Last Admin Trade Name Freq PRN Reason Stop Dose Admin Aspirin 81 mg 01/20/25 09:00 Aspirin 81 Mg Enteric Tablet PO QAM [facility] Atorvastatin Calcium 80 mg 01/20/25 09:00 Atorvastatin 40 Mg Tablet PO DAILY [facility] Dextrose 12.5 gm 01/20/25 00:37 Dextrose 50% 25 Gm/50 Ml Syringe IV PUSH PRN PRN Hypoglycemia Protocol Glucagon 1 mg 01/20/25 00:37 Glucagon For Inj 1 Mg Vial IM PRN PRN Hypoglycemia Protocol Glucose 15 gm 01/20/25 00:37 Glucose Oral Gel 15 Gm Of Glucse In 37.5 Gm Tube PO PRN PRN Hypoglycemia Protocol Epinephrine HCl 1 mg/ Dextrose 251 mls @ 37.65 mls/hr 01/19/25 23:00 01/19/25 22:35 IV CONT 9.96 mcg/min .Q6H40M [facility] 150 mls/hr Administration Protocol 2.5 MCG/MIN Norepinephrine Bitartrate 8 mg in 250 mls @ 9.375 mls/hr 01/19/25 22:50 01/19/25 22:35 Levophed 8 Mg/D5w 250 Ml IV CONT 5 mcg/min .Q24H [facility] 9.38 mls/hr Administration Protocol 5 MCG/MIN Phenylephrine HCl 50 mg/ 250 mls @ 12 mls/hr 01/19/25 23:19 Sodium Chloride IV CONT 01/20/25 20:08 .[id number] STA Protocol 40 MCG/MIN Amiodarone HCl/Dextrose 360 mg in 200 mls @ 33.333 mls/hr 01/20/25 00:30 Nexterone 360 Mg/D5w 200 Ml IV CONT 01/20/25 06:29 .Q6H ONE 1 MG/MIN Dextrose 1,000 mls @ 100 mls/hr 01/20/25 00:37 Dextrose 5% 1,000 Ml IVPB PRN PRN Hypoglycemia Protocol Amiodarone HCl/Dextrose 360 mg in 200 mls @ 16.667 mls/hr 01/20/25 07:00 Nexterone 360 Mg/D5w 200 Ml IV CONT .Q12H [facility] 0.5 MG/MIN Insulin Aspart 3 - 6 units 01/20/25 06:00 Insulin Aspart (*Bkc) 100 Units/Ml SUB-Q Q6HR [facility] Protocol Multi-Ingred Cream/Lotion/Oil/Oint 1 applic 01/20/25 09:00 Mineral Oil/White Petrolatum Ointment EACH EYE Q12HR [facility] Perflutren Lipid Microsphere 0 ml 01/20/25 00:37 Perflutren Lipid Microspheres 1.5 Ml Vial Diluted To 10 Ml Total Volume IV PUSH 01/23/25 00:37 ONCE PRN adequate visualization Protocol Ticagrelor 90 mg 01/20/25 09:00 Ticagrelor 90 Mg Tablet PO Q12HR [facility] ASA Classification/Sedation ASA Classification/Sedation ASA Class: IV Emergent: Yes Risks: Risks, benefits and alternatives explained and patient/family accepted plan for sedation. Patient re-evaluated immediately prior to sedation.
--- NOTE | 2025-01-20 00:49 | WPDCARDPROC ---
Cardiac Cath Procedure Note Date of procedure:: 01/20/25 Performing physician:: CATHETERIZATION LABORATORY REPORT Procedure Date: 01/19/2025 to 01/20/2025 Ambulance Officer: Monica Carvajal M.D., [facility]? Referring Physician: Morro Card ([facility]) Anesthesia: Versed and Fentanyl were ordered and given in my presence at 23:11 (01/19), procedure ended at 00:20 (01/20) Supervision of nurse monitored moderate sedation with Versed and Fentanyl was provided for 69 minutes. Total of Versed 2mg and Fentanyl 50mcg were administered by the Commercial Portfolio Manager RN Mike Hernandez. Pre-op Diagnosis: Inferior STEMI Post-op Diagnosis: 1. 100% occlusion of co-dominant mid-RCA. S/p PCI with SUNNY x 1. 2. Patent stents in the mid LAD, mid to distal LCX extending into OM-2. There appears to be a stent in the proximal portion of OM-1 branch, and proximal to this stent, there appears to be a 70-80% stenosis. 3. LVEDP 18mmHg 4. Prior to stenting, patient intermittently went into VF and was defibrillated 5 times on quality assurance qa lab technician table. Electrically stable post stenting. Procedure(s): 1. Moderate sedation 2. Ultrasound-guided access of the right common femoral artery, right femoral vein 3. Coronary angiography 4. Left heart cath 5. IVUS of RCA 6. PCI of the RCA with SUNNY x 1 (2.5mm x 22mm SUNNY) 7. Angioseal closure of the right common femoral artery Access Site: Right common femoral artery Right femoral vein Brief History and Clinical Indications: Patient is a 64 year old female referred for emergent cardiac catheterization for inferior STEMI. Time out called, patient name, date of , medical record number, allergies, procedure performed, identify Ambulance Officer, patient and staff member concurred with accurate data, procedure carried on. Findings: LEFT HEART CATHETERIZATION FINDINGS: 1. Left main: The left main coronary artery is very short. 2. Left anterior descending: Prior patent stent visualized in the mid LAD. There is moderate ostial and proximal LAD disease. There is a focal moderate distal LAD lesion. No significant obstructive disease. 3. Left circumflex: The left circumflex artery is a co-dominant vessel. Prior stent material visualized in the mid to distal LCX extending into OM-2. There is mild in-stent restenosis. There appears to be a stent in the proximal portion of OM-1 branch, and proximal to this stent, there appears to be a 70-80% stenosis. 4. Right coronary artery: The RCA is a co-dominant vessel. The RCA is 100% occluded in the mid portion. There are [id number] collaterals supplying the distal RCA territory. 5. Left ventricle: A. End-diastolic pressure 18 mmHg. B. LV gram deferred. C. No significant gradient across aortic valve on catheter pullback. Description of Procedure and PCI: Patient transferred to quality assurance qa lab technician room. Prepped and draped in usual sterile fashion. 2% lidocaine in right groin area. Micropuncture needle used to access right common femoral artery with Seldinger technique under fluoroscopic and ultrasound guidance. J wire advanced, micropuncture cannula placed. Right iliofemoral angiogram performed, however, due to patient's shivering and movement, the micropuncture cannula became dislodged. Manual pressure was applied for hemostasis. Micropuncture needle used to access right common femoral artery with Seldinger technique under fluoroscopic and ultrasound guidance. J wire advanced, micropuncture cannula placed. Right iliofemoral angiogram performed, access confirmed and micropuncture cannula exchanged for 6-FR sheath. 5F FL 4 diagnostic catheter engaged Left Main Coronary Artery. 5F FR 4 diagnostic catheter engaged Right Coronary Artery. Multiple orthogonal angiogram obtained and reviewed. Angiomax was used for anticoagulation. 6F FR 4 guide catheter was used to intubate the RCA, however, had issues with keeping guide catheter engaged as it kept diving into the RCA resulting in pressure dampening. 0.014 [place] coronary wire was passed in to the distal RCA. Given issues with guide catheter, guide catheter would become disengaged which resulted in losing wire access. After few attempts, able to maintain adequate guide catheter position. The lesion was pre-dilated with a 2.0 mm x 15 mm balloon inflated to high COLTEN. Repeat angioplasty done with a 2.5 mm x 15 mm balloon. IVUS catheter advanced distal to the lesion. The case was further complicated due to recurrent VF which resulted in a total of 5 defibrillations. A 2.5 mm x 22 mm Orsiro SUNNY was successfully deployed into proximal-mid RCA. Intracoronary NTG was administered Follow-up angiograms showed an acceptable result. Coronary wire and guide-catheter were removed Pre-procedure - STEPHIE 0 flow Post-procedure - STEPHIE 3 flow No angiographic complications identified. 5F Pigtail diagnostic catheter crossed aortic valve to obtain LVEDP, LV angiogram deferred. Right femoral vein was accessed using micropuncture technique under ultrasound guidance. 5-FR sheath placed for central venous access. Arterial hemostasis was achieved by 6F Angioseal. Disposition: ICU Plan: -Continue ASA 81mg once daily indefinitely. -Continue Brilinta 90mg BID for at least 1 year post PCI. -Start high intensity statin. -Will start Amiodarone drip given VF requiring multiple defibrillations in quality assurance qa lab technician. -Wean off pressors as tolerated -Echocardiogram ordered and pending. -Will start hypothermia protocol. Patient's case/recommendations/plan discussed with ICU Physician (Dr. Jarrett) and Hospitalist network pricing consultant (Avinash). ? Monica Carvajal M.D. Interventional Cardiology
[2025-01-20] MEDS: EPINEPHrine INJ 1 MG in DEXTROSE 5% IN WATER 250 ML 150.6 MG IV CONT (01:16)
[2025-01-20] MEDS: FENTANYL 2,500MCG/NS250ML(*CRX 2,500 MCG/250 ML BAG IV CONT (01:35)
[2025-01-20] MEDS: MIDAZOLAM 100MG/NS 100ML(*CRX) 100 MG/100 ML BAG IV CONT (01:37)
[2025-01-20] MEDS: AMIODARONE 360 MG/D5W 200 ML 360 MG/200 ML BAG 33.33 MG IV CONT (01:39)
[2025-01-20 01:41] LABS: Alveolar/Arterial O2 Gradient 547.6 mmHg; Base Excess ABG 14.2 mEq/l (+/-2.0); Carboxyhemoglobin 2.1 % THb (0-2.0); HCO3 ABG 43.2 mEq/l (22.0-26.0); Methemoglobin ABG 0.3 %THb (0-1.5); Oxygen Content ABG 14.8 %vol (16.0-22.0); Oxygen Saturation ABG 94.6 % (95.0-100.0); Oxyhemoglobin 93.3 % THb (90.0-100.0); PO2 ABG 81.7 mmHg (80.0-100.0); PO2 FiO2 Ratio Arterial Blood 0.82 %; Reduced Hemoglobin 4.3 %THb (0-5.0); Total Hemoglobin 11.2 g/dL (12.0-18.0); pH ABG 7.331 (7.350-7.450)
[2025-01-20 01:44] LABS: PCO2 ABG 83.7 mmHg (35.0-45.0)
[2025-01-20 01:45] LABS: Device VENTILATOR; Fractional Inspired Oxygen 60 %; Modified Allen's Test Pass; Site Drawn RIGHT RADIAL
[2025-01-20 01:48] LABS: Arterial Blood Gas PEEP 5 cmH2O; Arterial Blood Gas Vent Mode CMV; Arterial Blood Gas Ventilator rate 18 /MIN
[2025-01-20 01:49] LABS: Arterial Blood Gas Tidal Volume 450 ml
--- NOTE | 2025-01-20 01:57 | PM.IMCN ---
Assessment and Plan Assessment and plan (1) Cardiac arrest: Code(s): I46.9 - Cardiac arrest, cause unspecified Status: Acute (2) ST elevation (STEMI) myocardial infarction: Code(s): I21.3 - ST elevation (STEMI) myocardial infarction of unspecified site Status: Acute (3) Brain bleed: Code(s): I61.9 - Nontraumatic intracerebral hemorrhage, unspecified Status: Acute (4) Acute on chronic respiratory failure with hypoxia and hypercapnia: Code(s): J96.21 - Acute and chronic respiratory failure with hypoxia; J96.22 - Acute and chronic respiratory failure with hypercapnia Status: Acute (5) Chronic respiratory failure with hypoxia, on home oxygen therapy: Code(s): J96.11 - Chronic respiratory failure with hypoxia; Z99.81 - Dependence on supplemental oxygen Status: Acute (6) Chronic obstructive pulmonary disease: Code(s): J44.9 - Chronic obstructive pulmonary disease, unspecified Status: Acute (7) Insulin dependent type 2 diabetes mellitus: Code(s): E11.9 - Type 2 diabetes mellitus without complications; Z79.4 - terminal carman (current) use of insulin Status: Acute Plan The patient presented to the emergency department via EMS from home status post cardiac arrest as detailed in HPI. She had a down time of at least 10 minutes prior to EMS arrival and another 10 minutes before return of spontaneous circulation was achieved. EKG showed ST-elevation in inferior leads and the cardiac catheterization of was initiated though [place] RCA was 100% occluded and she underwent successful PCI with a drug-eluting stent though she did have several episodes of ventricular tachycardia while in the custodial laborer requiring defibrillation for which she was started on amiodarone drip. Brain CT prior to initiation of targeted temperature management unfortunately showed several brain bleeds including a large right frontal lobe intraparenchymal hemorrhage with an adjacent subdural hematoma and scattered subarachnoid hemorrhages. These findings were relayed to the patient's Travis and their friend Laura. They both agree that Mildred would not want heroic measures if her quality of life would be poor and they have decided to pursue comfort measures. At this time they are going to go home to get some sleep and will return later today at which time they plan to withdrawal life support. Should her condition decline, they would not want any resuscitative measures. We will continue fentanyl and midazolam drips as needed for comfort and they are are okay with continuing amiodarone as well until they return. HPI Date of Consult Consult date: 01/20/25 Requesting Physician: Monica Carvajal MD Primary Care Provider: Indio Yeager, PAEmily Consult Narrative Reason for consult: post cardiac arrest medical management Narrative: This is a 64-year-old female smoker with chronic obstructive pulmonary disease, chronic hypoxic respiratory failure on home oxygen, obstructive sleep apnea, hypertension, hyperlipidemia, and insulin-dependent type 2 diabetes mellitus whom the hospitalist service has been consulted for help managing her medical conditions post cardiac arrest. The following history is obtained via a review of her EMR as well as information provided by her and friend. It is my understanding that she was hospitalized at [facility] in [place] a couple of weeks ago for acute on chronic hypercarbic respiratory failure and COPD exacerbation. Since that time she has remained noncompliant with her PAP therapy and reports that she seemed to be having difficulties with breathing the last day or so. Last evening the patient yelled out to her for help and he made his way upstairs to check on her albeit slowly because he is disabled. He found her face down on a rug over hardwood floors and she was unresponsive. He called 911 immediately and believes that EMS arrived within about 10 minutes. He was unable to get her on to her back or start CPR due to his disabilities. ACLS protocol was initiated immediately with return of spontaneous circulation within about 10 minutes. She was intubated in the field. EKG showed ST-elevation and custodial laborer was activated. It took nearly an hour to [place] and according to EMS she became responsive en route and they sedated her with etomidate and ketamine. Eventually she became hypotensive and was started on an epinephrine infusion. In the ED: GCS was 3. She was hypothermic with a temperature of 34.6? C and hypotensive with a blood pressure of 78/56. She was administered Brilinta 180 mg, heparin 5000 units IV, and aspirin 324 mg. She was also started on norepinephrine in addition to the epinephrine infusion that she was receiving per EMS. She was taken emergently to the custodial laborer. In the custodial laborer: She was found to have a 100% occlusion of code dominant mid RCA status post PCI with drug-eluting stent x1. Prior to stenting she was intermittently in ventricular fibrillation and was defibrillated 5 times on the custodial laborer table. She was started on amiodarone drip was brought to the ICU. In ICU: Brain CT was ordered by the watershed coordinator prior to initiation of targeted temperature management and that unfortunately showed a large right frontal lobe intraparenchymal hemorrhage with a small amount of adjacent right frontal subdural hemorrhage and scattered bilateral areas of suspected subarachnoid hemorrhage. I spoke with the patient's , Travis Logan and their family friend Laura via phone regarding these findings. We discussed transfer the patient to [facility] in [place] or a tertiary care facility in [place] however both Travis and Laura agree that the patient would not want intervention or heroic measures if it meant that her quality of life would be poor. Her imaging and exam findings indicate that her prognosis is poor for a meaningful recovery and they both agree that they would not want her to be resuscitated if she were due to decline overnight. At this time they are going to stay home to get some rest and will be back to the hospital later today with plans to withdrawal treatment. Review of Systems Review of Systems: Unable to obtain given current clinical condition. [facility] Past Medical History Medical History (Updated 01/20/25 @ 05:43 by Miracle Da Silva PA-C) Insulin dependent type 2 diabetes mellitus Hyperlipidemia Chronic respiratory failure with hypoxia, on home oxygen therapy Chronic obstructive pulmonary disease Chronic low back pain Panic attacks Depression Anxiety Surgical History Surgical History (Updated 01/20/25 @ 05:37 by Miracle Da Silva PA-C) History of section Social History Social History (Updated 01/20/25 @ 05:37 by Miracle Da Silva PA-C) Social History: Surrogate medical decision maker: Travis Logan, spouse. Code status: Do not resuscitate. Smoking packs per day: 0.5 Smoking cigarettes per day: 10.0 Years smoked: 50 Smoking pack-years: 25.00 Smoking status: Current every day smoker Tobacco type: cigarettes Alcohol intake: never Substance use: current Substance use type: marijuana Spiritual care concerns: No Meds Home Medications and Allergies Home Medications ?Medication ?Instructions ?Recorded ?Confirmed ?Type atorvastatin 20 mg tablet 20 mg PO DAILY 12/31/24 History buspirone 5 mg tablet 5 mg PO BID 12/31/24 History carvedilol 6.25 mg tablet 6.25 mg PO Q12H 12/31/24 History citalopram 40 mg tablet 40 mg PO DAILY 12/31/24 History gabapentin 300 mg capsule 300 mg PO TID 12/31/24 History hydrocodone 10 mg-acetaminophen 1 tablet PO QID 12/31/24 History 325 mg tablet hydroxyzine pamoate 50 mg capsule 50 mg PO TID PRN anxiety 12/31/24 History insulin NPH isoph U-100 human 100 24 unit subcut QAM 12/31/24 History unit/mL (3 mL) subcutaneous pen (Novolin N FlexPen) insulin aspart U-100 100 unit/mL 15 unit subcut QAM 12/31/24 History (3 mL) subcutaneous pen (Novolog FlexPen U-100 Insulin aspart) tizanidine 2 mg tablet 2 mg PO TID 12/31/24 History Allergies Allergy/AdvReac Type Severity Reaction Status Date / Time Sulfa (Sulfonamide Allergy Other Verified 12/31/24 18:19 Antibiotics) Vital Signs Vital Signs - 24 hr 01/19/25 22:26 01/19/25 22:33 01/19/25 22:34 Temperature Pulse Rate Respiratory Rate 14 14 17 Blood Pressure 78/56 L Pulse Oximetry Oxygen Delivery Fraction of Inspired Oxygen 01/19/25 22:35 01/19/25 22:35 01/19/25 22:35 Temperature Pulse Rate 73 76 Respiratory Rate Blood Pressure 118/74 118/74 Pulse Oximetry Oxygen Delivery Mechanical Ventilation Fraction of Inspired Oxygen 01/19/25 22:36 01/19/25 22:40 01/20/25 01:16 Temperature 94.3 F L Pulse Rate 82 81 80 Respiratory Rate 16 12 Blood Pressure 118/74 112/73 129/73 Pulse Oximetry Oxygen Delivery Fraction of Inspired Oxygen 01/20/25 01:16 01/20/25 01:18 01/20/25 01:30 Temperature Pulse Rate 80 99 78 Respiratory Rate Blood Pressure 129/73 177/94 H Pulse Oximetry 79 L Oxygen Delivery Mechanical Ventilation Fraction of Inspired Oxygen 60 01/20/25 01:35 01/20/25 01:37 01/20/25 01:39 Temperature Pulse Rate 79 79 79 Respiratory Rate 22 H 22 H Blood Pressure 176/95 H Pulse Oximetry Oxygen Delivery Fraction of Inspired Oxygen 01/20/25 01:45 Temperature Pulse Rate 80 Respiratory Rate Blood Pressure 176/95 H Pulse Oximetry Oxygen Delivery Fraction of Inspired Oxygen Exam Narrative: General: Seen and evaluated in the ICU. Acutely ill-appearing female intubated on mechanical ventilation. She is unresponsive and not on sedation. Weight: 115.2 kg. BMI: 46.5. HEENT: Pupils are approximately 2 mm and are sluggish. Absent corneal reflex. ET tube in place. Neck: Supple. No obvious JVD though exam limited due to neck circumference. Respiratory: Intubated on mechanical ventilation. Course, equally transmitted lung sounds anteriorly. Cardiovascular: Regular rate and rhythm with occasional ectopy. Gastrointestinal: Abdomen is soft and obese with hypoactive bowel sounds. Skin: Cool with mottling past the knees. Abrasions on the chest from compressions. Scattered bruising on the arms. Chronic skin changes of the lower legs, left greater than right. Decreased capillary refill. Extremities: No cyanosis or clubbing. Hands and feet are cool. Radial pulses palpable. Neurological: Unresponsive. She is not on sedation. Absent corneal reflex. Intermittent shivers, seemed to be provoked with stimuli. Occasional myoclonic jerks. No obvious seizure activity. Psychiatric: Unable to assess. Results Labs 01/20/25 02:13 01/20/25 02:13 Labs: Imaging Head CT 01/20/25 05:31 Impression: 3.3 x 3.1 cm acute parenchymal hemorrhage/hematoma in the right frontal lobe. Probable acute bilateral basal ganglia hemorrhages. Multiple areas of scattered bilateral acute subarachnoid hemorrhage. Acute intraventricular hemorrhage in the temporal horns of bilateral lateral ventricles. Questionable small subdural hemorrhage adjacent to the aforementioned parenchymal hemorrhage in the right frontal lobe. No midline shift. Quality VTE Prophylaxis VTE prophylaxis: mechanical ordered If No VTE Prophylaxis Answer both mechanical and pharmacologic: Reason no pharmacologic proph: medical contraindication (brain bleed) Hospitalist [facility] Advance Care Plan I have confirmed that the patient's Advanced Care Plan is present, code status is documented, or surrogate decision maker is listed in patient medical record.: Yes Medication Reconciliation I have utilized all available resources to obtain, update and review the patients current medications (includes all prescriptions, OTC, herbals, cannabis, and nutritional supplements).: Yes Critical Care Time Critical Care Time: Yes Total Critical Care Time: 60 Attestation: Due to a high probability of clinically significant, life threatening deterioration, the patient required my highest level of preparedness to intervene emergently and I personally spent this critical care time directly and personally managing the patient. This critical care time included obtaining a history; examining the patient; pulse oximetry; ordering and review of studies; arranging urgent treatment with development of a management plan; evaluation of patient's response to treatment; frequent reassessment; and discussions with other providers. It was exclusive of separately billable procedures and treating other patients and teaching time. Please see Assessment and Plan section and the rest of the note for further information on patient assessment and treatment.
[2025-01-20 02:23] LABS: Hematocrit 37.5 % (37.0-47.0); Hemoglobin 10.1 g/dL (12.0-15.0); Mean Corpuscular HGB Conc 26.9 g/dl (32-36); Mean Corpuscular Hemoglobin 31.3 pg (26-34); Mean Corpuscular Volume 116.1 fl (80-100); Mean Platelet Volume 10.3 fl (7.4-10.4); Platelet Count Result 202 k/mm3 (150-375); Red Blood Count 3.23 M/mm3 (4.2-5.4); Red Cell Distribution Width 14.1 % (11.5-14.5); White Blood Count 21.9 K/mm3 (4.5-10.0)
[2025-01-20 02:31] LABS: Creatine Kinase 410 U/L (30-135)
[2025-01-20 02:32] LABS: Hemoglobin A1C 5.3 % (<5.7)
[2025-01-20 02:32] LABS: Cholesterol 138 mg/dL (0-200); HDL Direct 54 mg/dL; Triglycerides 107 mg/dL (<150)
[2025-01-20 02:34] LABS: INR 3.4; Prothrombin Time 34.5 Seconds (11.1-14.7)
[2025-01-20 02:35] LABS: Alanine Aminotransferase 86 U/L (6-35); Albumin Level 3.1 g/dL (3.5-5.1); Alkaline Phosphatase 98 U/L (38-126); Aspartate Amino Transferase 175 U/L (14-36); Bilirubin,Total 0.6 mg/dL (0.2-1.3); Blood Urea Nitrogen 34 mg/dL (7-17); Carbon Dioxide > 40 mmol/L (22-30); Chloride 94 mmol/L (98-107); Estimated Glomerular Filt Rate > 60; Glucose 36 mg/dL (65-110); Lactic Acid Reflex 6.2 mmol/L (0.7-2.0); Magnesium 2.5 mg/dL (1.6-2.3); Potassium 4.7 mmol/L (3.4-5.0); Sodium 139 mmol/L (137-145)
[2025-01-20 02:43] LABS: LDL Cholesterol Direct 53 mg/dL
[2025-01-20] MEDS: DEXTROSE 50% 25 GM/50 ML SYRINGE IV PUSH ×3 (02:55→05:41)
[2025-01-20 03:00] LABS: Partial Thromboplastin Time > 200.0 Seconds (22.3-36.8)
--- NOTE | 2025-01-20 03:15 | PC.NURSE ---
0308 discussed patient condition with Travis and best friend Laura. Travis states patient is to be DNR if her heart were to stop. Travis repeated statement to MAY Puentesdinkey engine mechanic.
[2025-01-20] MEDS: DEXTROSE 5% 1,000 ML 1,000 ML 50 ML IV CONT (03:52)
[2025-01-20] MEDS: LACTATED RINGERS 1,000 ML 999 ML IV CONT (03:54)
[2025-01-20 04:19] LABS: Reflex Lactic Acid Yes or No Add Lactic
--- NOTE | 2025-01-20 04:58 | PC.NURSE ---
CT of head resulted in intracranial hemorrhage. Notified John Da Silva who ordered for cardiology to be called due to they are primary on the case. Notified who ordered me to call Nuria Da Silva as they consulted them on their case and told me she would have the exchange call Dr. bryant who did her left heart cath. I notified John Da Silva that Dr. Rodriguez asked me to call her and she told me to notify Dr. Jarrett. Dr. Jarrett notified via MAY Collins of the bleed. Targeted temperature orders discontinued. Dr. Bryant called and said to stop the angiomax if that is still going. I told her that was discontinued at 0130 and she stated that is all from Cardiology stand point. Call placed to to see if he would like her to be transferred as he made her a DNR waiting for return call. I notified John that we are waiting for his call. We are to notify John when he calls back to see what further steps we are going to take.
[2025-01-20 05:00] LABS: Alveolar/Arterial O2 Gradient 249.8 mmHg; Base Excess ABG 17.2 mEq/l (+/-2.0); Fractional Inspired Oxygen 60 %; HCO3 ABG 44.9 mEq/l (22.0-26.0); Oxygen Content ABG 12.9 %vol (16.0-22.0); Oxygen Saturation ABG 96.7 % (95.0-100.0); Oxyhemoglobin 95.3 % THb (90.0-100.0); PO2 ABG 93.7 mmHg (80.0-100.0); PO2 FiO2 Ratio Arterial Blood 1.56 %; Total Hemoglobin 9.5 g/dL (12.0-18.0); pH ABG 7.386 (7.350-7.450)
[2025-01-20 05:04] LABS: Device VENTILATOR; Modified Allen's Test Pass; PCO2 ABG 76.6 mmHg (35.0-45.0); Site Drawn RIGHT RADIAL
--- NOTE | 2025-01-20 05:04 | PC.NURSE ---
1702 attempted to reach spouse Travis. Message left to call [phone]. [id number] telephoned patients best friend Laura - agreed to go to house and wake Travis.
[2025-01-20 05:05] LABS: Arterial Blood Gas Vent Mode CMV; Arterial Blood Gas Ventilator rate 18 /MIN
[2025-01-20 05:06] LABS: Arterial Blood Gas PEEP 5 cmH2O; Arterial Blood Gas Tidal Volume 450 ml
--- NOTE | 2025-01-20 05:11 | PC.NURSE ---
This patient, Mildred Logan, was admitted to Intensive Care Unit-7 at 0110. Patient/family oriented to hospital policies and general routines including ID bracelet, bed and alarms, visiting hours, pain management, procedures, bathroom and other care routines, personal items, smoking policy, room service/diet, and visiting hours. Information on how to activate the Rapid Response Team has been discussed. Patient/Family are encouraged to report perceived risks to care and to ask questions if they do not understand what they are told or what they should do.
[2025-01-20 06:16] LABS: Barbiturate Screen Urine Negative (Negative)
[2025-01-20 06:17] LABS: Amphetamine Screen Urine Negative (Negative); Cannabinoid Screen Urine Negative (Negative); Cocaine Screen Urine Negative (Negative); Methadone Screen Urine Negative (Negative); Opiate Screen Urine Positive (Negative); Phencyclidine Screen Urine Negative (Negative)
[2025-01-20 06:31] LABS: Benzodiazepines Screen Urine Positive (Negative)
[2025-01-20 06:50] LABS: Glucose Point of Care 96 mg/dl (65-105)
[2025-01-20 06:50] LABS: Glucose Point of Care 30 mg/dl (65-105)
[2025-01-20 06:50] LABS: Glucose Point of Care 81 mg/dl (65-105)
[2025-01-20 06:50] LABS: Glucose Point of Care 89 mg/dl (65-105)
[2025-01-20 06:50] LABS: Glucose Point of Care 73 mg/dl (65-105)
[2025-01-20 06:50] LABS: Glucose Point of Care 89 mg/dl (65-105)
[2025-01-20 06:50] LABS: Glucose Point of Care 86 mg/dl (65-105)
[2025-01-20 06:50] LABS: Glucose Point of Care 67 mg/dl (65-105)
[2025-01-20 06:50] LABS: Glucose Point of Care 65 mg/dl (65-105)
[2025-01-20 06:50] LABS: Glucose Point of Care 72 mg/dl (65-105)
[2025-01-20 06:50] LABS: Glucose Point of Care 82 mg/dl (65-105)
[2025-01-20 06:50] LABS: Glucose Point of Care 81 mg/dl (65-105)
[2025-01-20] MEDS: LORazepam INJ (*CRX) 2 MG/ML VIAL IV PUSH ×5 (07:05→19:39)
[2025-01-20 07:10] LABS: MRSA (PCR) NOT DETECTED (NOT DETECTE)
[2025-01-20] MEDS: AMIODARONE 360 MG/D5W 200 ML 360 MG/200 ML BAG 16.67 MG IV CONT (07:23)
[2025-01-20] MEDS: NOREPINEPHRINE 8 MG/D5W 250 ML 8 MG/250 ML BAG 9.38 MG IV CONT (07:30)
[2025-01-20] MEDS: levETIRAcetam 1000MG/NACL100ML 1,000 MG/100 ML BAG 400 MG IVPB (07:38)
[2025-01-20] MEDS: levETIRAcetam 500MG/NACL 100ML 500 MG/100 ML BAG 400 MG IVPB (07:55)
--- NOTE | 2025-01-20 08:23 | ADMGEN ---
This patient, Milderd Logan, was admitted to Intensive Care Unit-7 on 01/20/25 at 0110. Patient/family oriented to hospital policies and general routines including ID bracelet, bed and alarms, visiting hours, pain management, procedures, bathroom and other care routines, personal items, smoking policy, room service/diet, and visiting hours. Information on how to activate the Rapid Response Team has been discussed. Patient/Family are encouraged to report perceived risks to care and to ask questions if they do not understand what they are told or what they should do.
[2025-01-20 08:43] LABS: Basophils Absolute Auto 0.1 K/mm3 (0.0-0.1); Basophils Percent Auto 0.3 % (0.2-1.2); Eosinophils Absolute Auto 0.1 K/mm3 (0-0.3); Eosinophils Percent Auto 0.4 % (0-4.4); Hematocrit 30.4 % (37.0-47.0); Hematocrit 30.5 % (37.0-47.0); Hemoglobin 8.5 g/dL (12.0-15.0); Hemoglobin 8.7 g/dL (12.0-15.0); Immature Granulocyte Absolute 0.22 K/mm3 (0.00-0.031); Immature Granulocyte Percent A 1.2 % (0-0.5); Lymphocytes Absolute Auto 1.56 K/mm3 (0.9-3.2); Lymphocytes Percent Auto 8.7 % (18.3-44.2); Mean Corpuscular HGB Conc 27.9 g/dl (32-36); Mean Corpuscular HGB Conc 28.6 g/dl (32-36); Mean Corpuscular Hemoglobin 30.9 pg (26-34); Mean Corpuscular Hemoglobin 31.2 pg (26-34); Mean Corpuscular Volume 110.9 fl (80-100); Mean Platelet Volume 10.1 fl (7.4-10.4); Monocytes Absolute Auto 1.2 K/mm3 (0.1-0.6); Monocytes Percent Auto 6.8 % (2.6-8.5); Neutrophils Absolute Auto 14.8 K/mm3 (1.3-6.7); Neutrophils Percent Auto 82.6 % (45.5-73.1); Nucleated Red Blood Cells Perc 0.3 % (0.0-0.2); Platelet Count Result 170 k/mm3 (150-375); Platelet Count Result 174 k/mm3 (150-375); Red Blood Count 2.75 M/mm3 (4.2-5.4); Red Blood Count 2.79 M/mm3 (4.2-5.4); Red Cell Distribution Width 14.5 % (11.5-14.5); White Blood Count 17.9 K/mm3 (4.5-10.0); White Blood Count 18.2 K/mm3 (4.5-10.0)
--- NOTE | 2025-01-20 08:43 | PCRCNOTE ---
abg late due to analyzer needing to be restarted.
[2025-01-20 08:54] LABS: INR 1.5; Prothrombin Time 18.8 Seconds (11.1-14.7)
[2025-01-20 08:55] LABS: Creatine Kinase 853 U/L (30-135)
[2025-01-20 08:55] LABS: Fibrinogen 353 mg/dl (215-510); Magnesium 1.9 mg/dL (1.6-2.3); Partial Thromboplastin Time 49.9 Seconds (22.3-36.8)
[2025-01-20 09:00] LABS: Anisocytosis 2+; Hypochromasia 2+; Macrocytosis 1+ (NORMAL); Platelet Estimate Adequate (Adequate)
[2025-01-20 09:01] LABS: Schistocytes None Seen
[2025-01-20 09:05] LABS: D Dimer 7.97 ug/mL (<0.48)
[2025-01-20 09:08] LABS: Alveolar/Arterial O2 Gradient 353.5 mmHg; Base Excess ABG 16.1 mEq/l (+/-2.0); Fractional Inspired Oxygen 90 %; HCO3 ABG 41.7 mEq/l (22.0-26.0); Oxygen Content ABG 13.5 %vol (16.0-22.0); Oxygen Saturation ABG 99.5 % (95.0-100.0); Oxyhemoglobin 98.7 % THb (90.0-100.0); PCO2 ABG 57.8 mmHg (35.0-45.0); PO2 FiO2 Ratio Arterial Blood 2.54 %; Total Hemoglobin 9.3 g/dL (12.0-18.0); pH ABG 7.476 (7.350-7.450)
[2025-01-20 09:09] LABS: Arterial Blood Gas Vent Mode CMV; Arterial Blood Gas Ventilator rate 24 /MIN; Device VENTILATOR; Modified Allen's Test Pass; Site Drawn RIGHT RADIAL
[2025-01-20 09:10] LABS: Arterial Blood Gas PEEP 5 cmH2O; Arterial Blood Gas Tidal Volume 450 ml
--- NOTE | 2025-01-20 09:18 | WPDCNINT ---
Assessment and Plan Assessment and plan (1) ST elevation (STEMI) myocardial infarction: Code(s): I21.3 - ST elevation (STEMI) myocardial infarction of unspecified site Status: Acute Assessment and Plan: Status post cardiac arrest, as under. -Patient was taken to the r and d lab technician the she was found to have 100% occlusion of the RCA in the midportion. There appears to be a stent in the proximal portion of OM-1 branch, and proximal to this stent, there appears to be a 70-80% stenosis. LVEDP and LV angiogram were deferred. Patient was transferred to the ICU after arterial hemostasis was achieved by Angio-Seal. Carton Filling Machine Operator did insert a venous sheath for venous access the Levophed and epinephrine. -patient was supposed to get target temperature management but CT scan of the brain showed multiple areas of bleeding in the brain as under. -family was contacted, patient was made DNR, they did not want patient to be transferred to a tertiary care center, -likely withdrawal of care today 01/20/2025: CT brain was ordered prior to TTM showed acute parenchymal hemorrhage in the right frontal lobe, acute bilateral basal ganglia hemorrhages, multiple areas of scattered bilateral acute subarachnoid hemorrhages. Acute intraventricular hemorrhage in the temporal horns of the bilateral lateral ventricles reviewed small subdural hemorrhage adjacent to the aforementioned parenchymal hemorrhage in the right frontal lobe. No midline shift. (2) Cardiac arrest: Code(s): I46.9 - Cardiac arrest, cause unspecified Status: Acute Assessment and Plan: Patient had a witnessed cardiac arrest by her , downtime was approximately 10 minutes before ROSC was achieved. Transit time from her house to the hospital was approximately 1 hour. Patient was hypotensive, was an epinephrine infusion, EKG post ROSC showed ST-elevation MD, which is likely the cause of the cardiac arrest -patient was taken to cardiac r and d lab technician with stent placement as above (3) Acute on chronic respiratory failure with hypoxia and hypercapnia: Code(s): J96.21 - Acute and chronic respiratory failure with hypoxia; J96.22 - Acute and chronic respiratory failure with hypercapnia Status: Acute Assessment and Plan: Patient with history of chronic respiratory failure secondary to COPD, initial ABG showed hypercapnia -patient was intubated on the field -chest x-ray and ABGs reviewed, ventilator adjusted -patient has history of COPD, will add bronchodilators (4) Brain bleed: Code(s): I61.9 - Nontraumatic intracerebral hemorrhage, unspecified Status: Acute Assessment and Plan: 01/20/25: CT brain was ordered prior to TTM showed acute parenchymal hemorrhage in the right frontal lobe, acute bilateral basal ganglia hemorrhages, multiple areas of scattered bilateral acute subarachnoid hemorrhages. Acute intraventricular hemorrhage in the temporal horns of the bilateral lateral ventricles reviewed small subdural hemorrhage adjacent to the aforementioned parenchymal hemorrhage in the right frontal lobe. No midline shift. -hold aspirin, Brilinta (5) COPD (chronic obstructive pulmonary disease): Qualifiers: COPD type: chronic bronchitis Chronic bronchitis type: unspecified Qualified Code(s): J42 - Unspecified chronic bronchitis Code(s): J44.9 - Chronic obstructive pulmonary disease, unspecified Status: Acute Assessment and Plan: Continue mechanical ventilation, bronchodilators (6) Hyperlipidemia: Code(s): E78.5 - Hyperlipidemia, unspecified Status: Acute Assessment and Plan: Continue atorvastatin (7) Insulin dependent type 2 diabetes mellitus: Code(s): E11.9 - Type 2 diabetes mellitus without complications; Z79.4 - FDC (current) use of insulin Status: Acute Assessment and Plan: Patient currently hypo glycemic, requiring D5 infusion. -remains on sliding scale insulin acute (8) Seizures: Code(s): R56.9 - Unspecified convulsions Status: Acute Assessment and Plan: Seizure activity likely related to brain hemorrhages, cardiac arrest -p.r.n. Ativan -loaded with Keppra -will start Keppra q.12 Plan DVT prophylaxis: No chemoprophylaxis secondary to brain bleed Stress ulcer prophylaxis: Protonix Nutrition: NPO Code Status: DNR Critical Care Time Spent: 49 minutes Patient's family has decided to withdraw support today Due to a high probability of clinically significant, life threatening deterioration, the patient required my highest level of preparedness to intervene emergently and I personally spent this critical care time directly and personally managing the patient. This critical care time included obtaining a history; examining the patient; pulse oximetry; ordering and review of studies; arranging urgent treatment with development of a management plan; evaluation of patient's response to treatment; frequent reassessment; and discussions with other providers. It was exclusive of separately billable procedures and treating other patients and teaching time. Please see Assessment and Plan section and the rest of the note for further information on patient assessment and treatment This dictation may have been done utilizing a voice recognition system. Attempts have been made to correct errors. However, there may be uncorrected grammatical, spelling, and recognitions errors present. Head Of Strategy Consult Note Consult date: 01/20/25 Reason for consult: ST-elevation MD, cardiac arrest, acute respiratory failure HPI: Mildred Logan is a 64 year old female with significant past medical history of COPD on 3 L of home oxygen, obstructive sleep apnea essential hypertension, hyperlipidemia, insulin-dependent diabetes, panic attacks, depression, anxiety presented to the ED wound 01/20/2025 status post cardiac arrest which was witnessed by at home will call 911. Patient about 10 minutes down time and was intubated in the field with a return of spontaneous circulation after about 10 minutes of CPR. Patient was noted to have a inferior STEMI on the EKG post ROSC. According the records the transit time between her home and transferred to [facility] was approximately 1 hour. Code stroke was called upon receiving EMS call in the ED. patient was taken to the cardiac r and d lab technician after being loaded with Brilinta, started on heparin infusion, received aspirin and NG tube. Blood pressures were low upon arrival with systolics in the 70s, body temperature was 34.6?. Patient was started on norepinephrine in addition to the epinephrine infusion that was ongoing. Patient was taken to the r and d lab technician the she was found to have 100% occlusion of the RCA in the midportion. There appears to be a stent in the proximal portion of OM-1 branch, and proximal to this stent, there appears to be a 70-80% stenosis. LVEDP and LV angiogram were deferred. Patient was transferred to the ICU after arterial hemostasis was achieved by Angio-Seal. Carton Filling Machine Operator did insert a venous sheath for venous access the Levophed and epinephrine. Patient was transferred to the ICU for further management, and possible to target temperature management (TTM). CT brain was ordered prior to TTM showed acute parenchymal hemorrhage in the right frontal lobe, acute bilateral basal ganglia hemorrhages, multiple areas of scattered bilateral acute subarachnoid hemorrhages. Acute intraventricular hemorrhage in the temporal horns of the bilateral lateral ventricles reviewed small subdural hemorrhage adjacent to the aforementioned parenchymal hemorrhage in the right frontal lobe. No midline shift. Patient seen examined upon arrival to the ICU this morning, patient is having seizure activity, given Ativan and started Keppra. Patient remains intubated on CMV mode of ventilation, 90% FiO2, peep of 5. Sedated with Versed and fentanyl infusion. Low urine output, received 1000 mL of LR overnight, have asked the bedside RN to give another 500 mL of LR bolus. Patient remains on amiodarone, currently in sinus rhythm. Skin is mottled on the upper and lower extremities bilaterally. Patient does not open her eyes or follow simple commands Review of Systems Review of Systems: ROS unobtainable: Yes unobtainable due to endotracheal tube, unobtainable due to medical condition and unobtainable due to mental status [facility] Past Medical History Medical History (Updated 01/20/25 @ 09:47 by Muna Jarrett MD) Insulin dependent type 2 diabetes mellitus Hyperlipidemia Chronic respiratory failure with hypoxia, on home oxygen therapy Chronic obstructive pulmonary disease Chronic low back pain Panic attacks Depression Anxiety Surgical History Surgical History (Updated 01/20/25 @ 05:37 by Miracle Da Silva PA-C) History of section Social History Social History (Updated 01/20/25 @ 05:37 by Miracle Da Silva PA-C) Social History: Surrogate medical decision maker: Travis Logan, spouse. Code status: Do not resuscitate. Smoking packs per day: 0.5 Smoking cigarettes per day: 10.0 Years smoked: 50 Smoking pack-years: 25.00 Smoking status: Current every day smoker Tobacco type: cigarettes Alcohol intake: never Substance use: current Substance use type: marijuana Spiritual care concerns: No Meds Home Medications and Allergies Home Medications ?Medication ?Instructions ?Recorded ?Confirmed ?Type atorvastatin 20 mg tablet 20 mg PO DAILY 12/31/24 History buspirone 5 mg tablet 5 mg PO BID 12/31/24 History carvedilol 6.25 mg tablet 6.25 mg PO Q12H 12/31/24 History citalopram 40 mg tablet 40 mg PO DAILY 12/31/24 History gabapentin 300 mg capsule 300 mg PO TID 12/31/24 History hydrocodone 10 mg-acetaminophen 1 tablet PO QID 12/31/24 History 325 mg tablet hydroxyzine pamoate 50 mg capsule 50 mg PO TID PRN anxiety 12/31/24 History insulin NPH isoph U-100 human 100 24 unit subcut QAM 12/31/24 History unit/mL (3 mL) subcutaneous pen (Novolin N FlexPen) insulin aspart U-100 100 unit/mL 15 unit subcut QAM 12/31/24 History (3 mL) subcutaneous pen (Novolog FlexPen U-100 Insulin aspart) tizanidine 2 mg tablet 2 mg PO TID 12/31/24 History Allergies Allergy/AdvReac Type Severity Reaction Status Date / Time Sulfa (Sulfonamide Allergy Other Verified 12/31/24 18:19 Antibiotics) Vital Signs Vital Signs - 24 hr 01/19/25 22:20 01/19/25 22:26 01/19/25 22:33 Temperature Pulse Rate Respiratory Rate 14 14 Blood Pressure 78/56 L Pulse Oximetry Oxygen Delivery Mechanical Ventilation Fraction of Inspired Oxygen 100 01/19/25 22:34 01/19/25 22:35 01/19/25 22:35 Temperature Pulse Rate 73 Respiratory Rate 17 Blood Pressure 118/74 Pulse Oximetry Oxygen Delivery Mechanical Ventilation Fraction of Inspired Oxygen 01/19/25 22:35 01/19/25 22:36 01/19/25 22:40 Temperature 94.3 F L Pulse Rate 76 82 81 Respiratory Rate 16 12 Blood Pressure 118/74 118/74 112/73 Pulse Oximetry Oxygen Delivery Fraction of Inspired Oxygen 01/19/25 23:08 01/20/25 01:15 01/20/25 01:16 Temperature 97.4 F L Pulse Rate 80 80 Respiratory Rate 18 Blood Pressure 129/73 129/73 Pulse Oximetry 98 Oxygen Delivery Mechanical Ventilation Fraction of Inspired Oxygen 80 01/20/25 01:16 01/20/25 01:18 01/20/25 01:30 Temperature Pulse Rate 80 99 78 Respiratory Rate Blood Pressure 129/73 177/94 H Pulse Oximetry 79 L Oxygen Delivery Mechanical Ventilation Fraction of Inspired Oxygen 60 01/20/25 01:30 01/20/25 01:35 01/20/25 01:37 Temperature 97.6 F Pulse Rate 78 79 79 Respiratory Rate 22 H 22 H 22 H Blood Pressure 176/95 H Pulse Oximetry 98 Oxygen Delivery Fraction of Inspired Oxygen 01/20/25 01:39 01/20/25 01:45 01/20/25 02:00 Temperature Pulse Rate 79 80 80 Respiratory Rate Blood Pressure 176/95 H 176/95 H Pulse Oximetry Oxygen Delivery Fraction of Inspired Oxygen 01/20/25 02:00 01/20/25 02:00 01/20/25 02:00 Temperature 97.9 F Pulse Rate 81 81 81 Respiratory Rate 18 18 18 Blood Pressure 173/86 H Pulse Oximetry 98 Oxygen Delivery Fraction of Inspired Oxygen 01/20/25 02:00 01/20/25 02:30 01/20/25 03:06 Temperature 97.9 F 98.9 F Pulse Rate 81 79 82 Respiratory Rate 18 21 H Blood Pressure 173/86 H 125/71 148/109 H Pulse Oximetry 98 100 Oxygen Delivery Fraction of Inspired Oxygen 01/20/25 03:06 01/20/25 03:24 01/20/25 03:30 Temperature Pulse Rate 82 78 79 Respiratory Rate Blood Pressure 148/109 H 138/65 125/71 Pulse Oximetry Oxygen Delivery Fraction of Inspired Oxygen 01/20/25 03:30 01/20/25 03:51 01/20/25 04:00 Temperature 98.9 F Pulse Rate 79 79 97 Respiratory Rate 21 H Blood Pressure 125/71 130/96 H 116/64 Pulse Oximetry 100 Oxygen Delivery Fraction of Inspired Oxygen 01/20/25 04:00 01/20/25 04:00 01/20/25 04:00 Temperature Pulse Rate 89 77 77 Respiratory Rate 18 21 H Blood Pressure Pulse Oximetry Oxygen Delivery Fraction of Inspired Oxygen 01/20/25 04:00 01/20/25 04:00 01/20/25 04:00 Temperature 99.1 F Pulse Rate 77 77 Respiratory Rate 21 H Blood Pressure 116/64 116/64 Pulse Oximetry 100 Oxygen Delivery Mechanical Ventilation Fraction of Inspired Oxygen 60 01/20/25 04:12 01/20/25 04:30 01/20/25 05:27 Temperature 99.1 F Pulse Rate 100 79 Respiratory Rate 24 H Blood Pressure 103/55 L Pulse Oximetry 77 L 99 Oxygen Delivery Mechanical Ventilation Mechanical Ventilation Fraction of Inspired Oxygen 60 80 01/20/25 05:30 01/20/25 05:30 01/20/25 06:00 Temperature 99.1 F Pulse Rate 86 103 H 89 Respiratory Rate 24 H 18 Blood Pressure 106/65 120/101 H Pulse Oximetry 98 Oxygen Delivery Fraction of Inspired Oxygen 01/20/25 06:00 01/20/25 06:00 01/20/25 06:00 Temperature Pulse Rate 89 89 100 Respiratory Rate 18 Blood Pressure 106/65 Pulse Oximetry Oxygen Delivery Fraction of Inspired Oxygen 01/20/25 06:15 01/20/25 06:17 01/20/25 07:14 Temperature 99.9 F H Pulse Rate 100 100 82 Respiratory Rate 24 H 39 H Blood Pressure 120/101 H Pulse Oximetry 96 91 Oxygen Delivery Mechanical Ventilation Fraction of Inspired Oxygen 60 01/20/25 07:15 01/20/25 07:22 01/20/25 07:23 Temperature Pulse Rate 96 93 94 Respiratory Rate 37 H Blood Pressure 91/54 L 91/54 L Pulse Oximetry Oxygen Delivery Fraction of Inspired Oxygen 01/20/25 07:30 01/20/25 07:33 01/20/25 08:00 Temperature Pulse Rate 92 92 Respiratory Rate Blood Pressure 91/54 L 81/55 L Pulse Oximetry Oxygen Delivery Fraction of Inspired Oxygen 60 Exam Narrative: General: Patient is seizing HEENT:? People's the equal, reactive, horizontal nystagmus, ETT in place Neck:? Supple Respiratory:? Coarse breath sounds bilaterally, decreased at bases, no wheezing, adequate air entry Cardiac:? S1-S2 normal, regular rate and rhythm Abdomen:? Soft, nontender, nondistended, obese, hypoactive bowel sounds Extremities:? Bilateral lower extremity, palpable pedal pulses Neuro:? Patient is intubated, sedated, having seizure activity which did subside with Ativan. Does not open her eyes or follow simple commands Skin:? Bilateral upper and lower extremity mottling noted skin is cool to touch Psych:? Unable to assess Results Labs 01/20/25 08:34 01/20/25 02:13 Labs: Short CBC 01/20/25 01/20/25 01/20/25 Range/Units 02:13 08:34 08:34 WBC 21.9 H 18.2 H 17.9 H (4.5-10.0) K/mm3 Hgb 10.1 L 8.7 L (12.0-15.0) g/dL Hct 37.5 (37.0-47.0) % Plt Count 202 (150-375) k/mm3 01/20/25 01/20/25 01/20/25 Range/Units 08:34 08:34 08:34 WBC (4.5-10.0) K/mm3 Hgb 8.5 L (12.0-15.0) g/dL Hct 30.4 L 30.5 L (37.0-47.0) % Plt Count 170 174 (150-375) k/mm3 BMP 01/20/25 02:13 Sodium 139 Potassium 4.7 Chloride 94 L Carbon Dioxide > 40 H BUN 34 H Creatinine 0.73 Glucose 36 L* Calcium 8.0 L Cardiac Enzymes 01/20/25 01/20/25 01/20/25 Range/Units 02:13 02:14 08:35 Total Creatine Kinase 410 H 853 H (30-135) U/L Troponin I 5.940 H* (0.000-0.034) ng/mL Liver Function 01/20/25 Range/Units 02:13 Total Bilirubin 0.6 (0.2-1.3) mg/dL AST 175 H (14-36) U/L ALT 86 H (6-35) U/L Alkaline Phosphatase 98 (38-126) U/L Albumin 3.1 L (3.5-5.1) g/dL
[2025-01-20 09:27] LABS: Alanine Aminotransferase 78 U/L (6-35); Albumin Level 2.5 g/dL (3.5-5.1); Alkaline Phosphatase 81 U/L (38-126); Aspartate Amino Transferase 231 U/L (14-36); Bilirubin,Total 0.4 mg/dL (0.2-1.3); Blood Urea Nitrogen 47 mg/dL (7-17); Calcium 7.7 mg/dL (8.4-10.2); Carbon Dioxide > 40 mmol/L (22-30); Chloride 90 mmol/L (98-107); Estimated CRCL calculation 64 ml/min; Estimated Glomerular Filt Rate 59; Glucose 66 mg/dL (65-110); Magnesium 1.9 mg/dL (1.6-2.3); Phosphorus 2.2 mg/dL (2.5-4.5); Potassium 4.5 mmol/L (3.4-5.0); Sodium 138 mmol/L (137-145)
[2025-01-20] MEDS: LACTATED RINGERS 500 ML IV CONT (10:38)
[2025-01-20] MEDS: MINERAL OIL/WHITE PETROLATUM OINTMENT 1 APPLIC EACH EYE (10:39)
[2025-01-20 12:29] LABS: Glucose Point of Care 89 mg/dl (65-105)
[2025-01-20 12:29] LABS: Glucose Point of Care < 20 mg/dl (65-105)
[2025-01-20 12:47] LABS: Hematocrit 29.9 % (37.0-47.0); Hemoglobin 8.5 g/dL (12.0-15.0); Mean Corpuscular HGB Conc 28.4 g/dl (32-36); Mean Corpuscular Volume 109.1 fl (80-100); Platelet Count Result 158 k/mm3 (150-375); Red Blood Count 2.74 M/mm3 (4.2-5.4); Red Cell Distribution Width 14.6 % (11.5-14.5); White Blood Count 15.5 K/mm3 (4.5-10.0)
[2025-01-20 13:02] LABS: Creatine Kinase 734 U/L (30-135)
[2025-01-20 13:03] LABS: INR 1.4; Lactic Acid Reflex 1.3 mmol/L (0.7-2.0); Prothrombin Time 17.3 Seconds (11.1-14.7)
[2025-01-20 13:04] LABS: Partial Thromboplastin Time 41.1 Seconds (22.3-36.8)
[2025-01-20] MEDS: IPRATROPIUM 0.5 MG/ALBUTEROL SULFATE 2.5 MG AMPUL.NEB 3 ML INHALATION (14:24)
--- NOTE | 2025-01-20 15:10 | PC.NURSE ---
Kwasi Martinez from [facility] Coroner's office notified of patients condition. He requests we call the fuller brush man with time of and home information.
--- NOTE | 2025-01-20 15:49 | PC.NURSE ---
MTS team on site, awaiting - Travis to arrive after multiple attempts to contact him via phone. After Travis called back, this RN confirmed his number as [phone] (his phone was just off) We also confirmed the family friend, Laura Thomas, phone # as [phone]. She is the alternate if unable to reach initially.
[2025-01-20] MEDS: MORPHINE SULFATE INJ (*CRX) 10 MG/ML AMP 5 MG IV PUSH (16:54)
[2025-01-20] MEDS: MORPHINE SULFATE (*CRX) 2 MG/ML INJ IV PUSH ×2 (18:40→19:39)
--- NOTE | 2025-01-20 22:00 | P.DN_ITS ---
Discharge Summary Date and Time Date of : 01/20/25 Time of : 21:18 Provider Pronounced By: 2 RNs Name of First RN That Pronounced: Karina Mcdonald Name of Second RN That Pronounced: Carter Floyd Probable Cause of Probable Cause of : Acute brain hemorrhage Cardiac arrest STEMI Summary Hospital Course: Mildred is a 64 year old female with CAD, hypertension, hyperlipidemia, COPD with chronic hypoxic respiratory failure on home oxygen, tobacco dependence who presented to [place] post cardiac arrest. Patient had a witnessed arrest by her at home, who called 911. Patient had approximately 10 minutes of down time before ROSC was achieved per EMS. Per EMS, the initial arresting rhythm with asystole. Intubated in the field. EMS EKG showed marked ST elevations in the inferior leads. Hypotensive upon arrival, on Epinephrine drip. Patient had approximately 1.5 hours between EMS arriving to scene and arriving to [place] ER. In the ED, she remained hypotensive with SBP in the 70s on Epi drip, and was started on Levophed drip. Given STEMI, she was taken emergently to the cardiac dental laboratory supervisor. S/p primary PCI to the RCA with SUNNY x 1. Transferred to the ICU afterwards. A head CT was obtained, which showed acute brain hemorrhage. After discussion with the family, family decided to withdraw care and make patient comfort care only. Additional Data Confirmation of as documented by pronouncing clinician: Pupillary Reflex, Palpable Pulses, Response to Stimuli, Heart Tones and Breath Sounds Name of Provider Notified: LYUBOV Christianson Time Provider Notified: 21:18 Provider Requests Autopsy: No Family Requests Autopsy: No Rehabilitation Services Counselor Notified: Yes Date [facility] Notified of : 01/20/25 Time [facility] Notified of : 22:03
--- NOTE | 2025-01-20 22:16 | PC.NURSE ---
2215 second attempt to reach family, message left to call [phone] attempted to reach spouse Travis message left to call [phone]
== END 2025-01-20 22:35 | disposition expired | DRG 321 ==
LOC: ANHED 22:40 → ANHICU 22:43
PROVIDERS: Admitting Provider Internal Medicine; Emergency Provider Student in an Organized Health Care Education/Training Program; PCP Physician Assistant; Visit Provider Internal Medicine
PROC: 4A023N7 Measurement of Cardiac Sampling and Pressure, Left Heart, Percutaneous Approach (ICD-10-PCS; CPT 93452; principal; 2025-01-19 22:30)
PROC: 027034Z Dilation of Coronary Artery, One Artery with Drug-eluting Intraluminal Device, Percutaneous Approach (ICD-10-PCS; 2025-01-19 22:30)
PROC: 027034Z Dilation of Coronary Artery, One Artery with Drug-eluting Intraluminal Device, Percutaneous Approach (ICD-10-PCS; 2025-01-19 22:30)
PROC: 027034Z Dilation of Coronary Artery, One Artery with Drug-eluting Intraluminal Device, Percutaneous Approach (ICD-10-PCS; 2025-01-19 22:30)
DX: I21.19 ST elevation (STEMI) myocardial infarction involving other coronary artery of inferior wall (principal); I60.8 Other nontraumatic subarachnoid hemorrhage; J96.21 Acute and chronic respiratory failure with hypoxia; J96.22 Acute and chronic respiratory failure with hypercapnia; I62.01 Nontraumatic acute subdural hemorrhage; T82.855A Stenosis of coronary artery stent, initial encounter; I47.20 Ventricular tachycardia, unspecified; G40.89 Other seizures; Z68.42 Body mass index [BMI] 45.0-49.9, adult; I46.2 Cardiac arrest due to underlying cardiac condition; I25.10 Atherosclerotic heart disease of native coronary artery without angina pectoris; R57.0 Cardiogenic shock; I10 Essential (primary) hypertension; E78.5 Hyperlipidemia, unspecified; E11.9 Type 2 diabetes mellitus without complications; J44.9 Chronic obstructive pulmonary disease, unspecified; E66.01 Morbid (severe) obesity due to excess calories; F17.210 Nicotine dependence, cigarettes, uncomplicated; Z95.5 Presence of coronary angioplasty implant and graft; Z99.81 Dependence on supplemental oxygen; Z79.4 Long term (current) use of insulin; Z66 Do not resuscitate; Z51.5 Encounter for palliative care
CPT/HCPCS: 36415; 36600; 70450; 80053; 80061; 80307; 82375; 82550; 82805; 82948; 83036; 83050; 83605; 83735; 84100; 84443; 84484; 85018; 85025; 85027; 85380; 85384; 85610; 85730; 87040; 87641; 92978; 93005; 93306; 93458; 94002; 94003; 94640; 99291; A9270; C1725; C1753; C1760; C1769; C1874; C1887; C1894; C9600; G0269; J0171; J0282; J0583; J1644; J1953; J2003; J2060; J2250; J2270; J2371; J3010; J7040; J7060; J7070; J7120